=== PATIENT | female | born 1960 | race Caucasian/White ===

== ENCOUNTER 2017-01-19 09:23 | Outpatient (CLI) | payer OTHER ==
--- NOTE | 2017-01-19 11:58 | BD ---
BONE DENSITOMETRY USING DEXA: HISTORY: Postmenopausal screening for osteoporosis. FINDINGS: Lumbar Spine: BMD (g/cm2) L1 0.250 T-Score: -3.3 Z-Score: -2.6 L2 0.297 T-Score: -5.6 Z-Score: -4.7 L3 0.377 T-Score: -5.3 Z-Score: -4.3 L4 0.447 T-Score: -3.6 Z-Score: -2.6 L1-L4 0.551 T-Score: -3.2 Z-Score: -2.5 Impression: Osteoporosis. POS: [facility]
== END 2017-01-19 09:24 | disposition home or self-care (01) ==
LOC: MAMMO 09:23
PROVIDERS: ATTEND Internal Medicine Hematology & Oncology
DX: N95.9 Unspecified menopausal and perimenopausal disorder (principal); C50.912 Malignant neoplasm of unspecified site of left female breast; M81.0 Age-related osteoporosis without current pathological fracture
CPT/HCPCS: 77080

== ENCOUNTER 2017-02-03 09:01 | Day surgery (SDC) | payer OTHER ==
[2017-02-03] MEDS ORDERED: Zoledronic Acid 4 MG, Admixture Fee 1 EACH in Sodium Chloride 0.9% 100 ML IVPB SCH (09:30)
[2017-02-03 09:49] VITALS: BP 117/60; TEMP 98.8
== END 2017-02-03 14:01 | disposition home or self-care (01) ==
LOC: ONC/OP 09:01
PROVIDERS: ATTEND Internal Medicine Hematology & Oncology
DX: Z51.11 Encounter for antineoplastic chemotherapy (principal); C50.912 Malignant neoplasm of unspecified site of left female breast; I10 Essential (primary) hypertension; Z90.10 Acquired absence of unspecified breast and nipple; Z98.890 Other specified postprocedural states; Z86.73 Personal history of transient ischemic attack (TIA), and cerebral infarction without residual deficits
CPT/HCPCS: 96365; J3489; J7050

== ENCOUNTER 2017-05-05 09:35 | Day surgery (SDC) | payer OTHER ==
[2017-05-05] MEDS ORDERED: Sodium Chloride 0.9% 20 ML ONE (09:44)
[2017-05-05] MEDS ORDERED: Zoledronic Acid 4 MG in Sodium Chloride 0.9% 100 ML IVPB SCH (09:45)
[2017-05-05 10:39] VITALS: BP 132/67; TEMP 98
== END 2017-05-05 10:58 | disposition home or self-care (01) ==
LOC: ONC/OP 09:35
PROVIDERS: ATTEND Internal Medicine Hematology & Oncology
DX: Z51.11 Encounter for antineoplastic chemotherapy (principal); C50.912 Malignant neoplasm of unspecified site of left female breast; I10 Essential (primary) hypertension; F10.20 Alcohol dependence, uncomplicated; F17.210 Nicotine dependence, cigarettes, uncomplicated; Z79.899 Other long term (current) drug therapy; Z98.1 Arthrodesis status; Z95.820 Peripheral vascular angioplasty status with implants and grafts; Z90.12 Acquired absence of left breast and nipple; Z98.890 Other specified postprocedural states
CPT/HCPCS: 82565; 96365; A4216; J3489; J7050

== ENCOUNTER 2017-07-20 13:26 | Outpatient (CLI) | payer OTHER ==
[~2017-07-20 13:26] MED LIST: Sodium Chloride 0.9% 15 ML NEB ONE
--- NOTE | 2017-07-20 19:51 | HP ---
DATE OF SERVICE: 07/20/2017 HISTORY OF PRESENT ILLNESS: Ms. Stephanie Gordon is a very pleasant 57-year-old accompanied by her mothe r who presents to the [facility] for evaluation of an ulceration of the left lateral ankle, which t he patient states has been present for approximately 1 month. The patient denies any history of inju ry or trauma to her left lateral ankle. The patient states that initially she treated the ulceration with the application of Neosporin followed by a Band-Aid. She states that more recently; however, s he has been leaving the ulceration open to air and keeping the ulceration clean and dry. The patient was referred to the Wound Center by Dr. Cardona. The patient states she is to undergo percutaneous revascularization of the left lower extremity and the right lower extremity by Dr. Rod Watts in t he near future. The patient states that she is to undergo percutaneous revascularization of the left lower extremity before she undergoes percutaneous revascularization on the right. PAST MEDICAL HISTORY: 1. Breast carcinoma with liver metastases, status post chemotherapy. 2. Hypertension. 3. CVA. PAST SURGICAL HISTORY: 1. Wide local excision of left breast carcinoma with axillary node dissection. 2. MediPort placement/left simple mastectomy. 3. Tonsillectomy. 4. Right carpal tunnel release. 5. Left carpal tunnel release. 6. Surgery for congenital hip dislocation. 7. Right carotid endarterectomy with patch angioplasty, 03/18. 8. Hip replacement. 9. Neck surgery. 10. Back surgery. MEDICATIONS: 1. Sertraline. 2. Clonidine. 3. Cyclobenzaprine. 4. Folic acid. 5. Amlodipine. 6. Metoprolol. 7. Lisinopril. 8. Anastrozole. 9. Ativan. 10. Multivitamins. ALLERGIES: No known diagnosed allergies. SOCIAL HISTORY: Significant for tobacco use beginning at age 17 or 18. The patient states that she stopped smoking 2 weeks ago. The patient states that over this period of time she has smoked up to 1 pack of cigarettes per day. The patient also admits to the consumption of alcohol also beginning at age 17 or 18. The patient states that she also stopped consuming alcohol 2 weeks ago. The patient states that over this period of time she has consumed up to one 6-pack per day. FAMILY HISTORY: Significant for coronary artery disease. The patient states that her father and mot her were both diagnosed with coronary artery disease. Family history is negative for diabetes kwesi underwood. PHYSICAL EXAMINATION: VITAL SIGNS: Temperature 98.1, pulse 84, respirations 18, blood pressure 98/58. GENERAL: A 57-year-old female sitting on chair in examination room, in no acute distress. HEENT: Normocephalic, atraumatic. NECK: No nuchal rigidity. CHEST: Clear to auscultation. CARDIOVASCULAR: Regular rate and rhythm. ABDOMEN: Soft. EXTREMITIES: An ulceration of the left lateral ankle is present which measures approximately 0.5 x 0 .3 cm. Eschar covers the entire wound bed. No serous or purulent drainage is associated with the wo und. No cellulitis of the left lateral ankle is appreciated. No maceration of the skin of the periw ound is noted. A dorsalis pedis pulse or a posterior tibial pulse is not palpable on the left. No s ignificant edema of the left foot or lower leg is present on exam today. ASSESSMENT AND PLAN: 1. Ulceration of left lateral ankle as described above. I have recommended to Ms. Gordon that she continue to keep the ulceration clean and dry. I have explained to the patient that once she undergo es percutaneous revascularization of the left lower extremity, the ulceration may heal without any fu rther intervention. Ms. Gordon and her mother understand and are in agreement with the preceding tr eatment plan. They will return to the Wound Center as needed after the patient undergoes percutaneou s revascularization of the left lower extremity. 2. Breast carcinoma with liver metastases, status post chemotherapy. 3. Hypertension. 4. Cerebrovascular accident.
== END 2017-07-20 13:27 | disposition home or self-care (01) ==
LOC: WCC 13:26
PROVIDERS: ATTEND Family Medicine
DX: L97.329 Non-pressure chronic ulcer of left ankle with unspecified severity (principal); Z85.3 Personal history of malignant neoplasm of breast; Z85.05 Personal history of malignant neoplasm of liver; Z92.21 Personal history of antineoplastic chemotherapy; I10 Essential (primary) hypertension; I63.9 Cerebral infarction, unspecified
CPT/HCPCS: 97602; 99202; A4218; G0463

== ENCOUNTER 2017-07-21 08:19 | Outpatient (CLI) | payer OTHER ==
[2017-07-21 09:02] LABS: Hemoglobin 8.5 g/dL (12.0-16.0); Mean Corpuscular HGB CONC 32.3 g/dL (32.0-36.0); Mean Corpuscular Hemoglobin 26.5 pg (27.0-31.0); Mean Corpuscular Volume 81.9 fl (81.0-99.0); Mean Platelet Volume 7.6 fL (7.4-10.4); Platelet Count 271 thou/uL (130-400); RBC Distribution Width 15.4 % (11.5-14.5); Red Blood Cell (RBC) Count 3.22 mill/uL (4.20-5.40); White Blood Cell (WBC) Count 4.6 thou/uL (4.8-10.8)
[2017-07-21 09:23] LABS: Anion Gap 15 mmol/L (10-20); BUN (Urea Nitrogen) 16 mg/dL (9.8-20.1); Calc. Creatinine Clearance 0 mL/min (70-130); Calcium 9.3 mg/dL (7.8-10.44); Carbon Dioxide 19 mmol/L (22-29); Chloride 93 mmol/L (98-107); Estimated GFR-MDRD 63; Glucose 87 mg/dL (70-105); Potassium 4.1 mmol/L (3.5-5.1); Sodium 123 mmol/L (136-145)
== END 2017-07-21 08:20 | disposition home or self-care (01) ==
LOC: LABBT 08:19
PROVIDERS: ATTEND Thoracic Surgery (Cardiothoracic Vascular Surgery)
DX: Z01.812 Encounter for preprocedural laboratory examination (principal); I73.9 Peripheral vascular disease, unspecified
CPT/HCPCS: 80048; 85027

== ENCOUNTER 2017-07-26 05:48 | Inpatient (IN) | payer OTHER ==
[2017-07-26] MEDS ORDERED: diphenhydrAMINE 50 MG/ML VIAL IVP SCH (07:00)
[2017-07-26] MEDS ORDERED: Cyclobenzaprine 10 MG TAB PO PRN (07:02)
[2017-07-26] MEDS ORDERED: Acetaminophen 325 MG TAB PO PRN (07:03)
[2017-07-26] MEDS: Lorazepam 1 MG TAB PO SCH ×2 (08:33→20:13)
[2017-07-26] MEDS: Anastrozole 1 MG TAB PO SCH ×2 (08:33)
[2017-07-26] MEDS: Folic Acid 1 MG TAB PO SCH (08:33)
[2017-07-26] MEDS: BEER 1 CAN PO SCH ×6 (11:06→17:26)
[2017-07-26 15:03] LABS: #Lymphocytes 1.9 thou/uL (1.20-3.40); #Monocytes 0.6 thou/uL (0.11-0.59); #Neutrophils 3.1 thou/uL (1.40-6.50); %Basophils 0.3 % (0.0-1.0); %Eosinophils 0.8 % (0.0-10.0); %Lymphocytes 33.5 % (21.0-51.0); %Monocytes 10.3 % (0.0-10.0); %Neutrophils 55.2 % (42.0-75.0); Hemoglobin 9.9 g/dL (12.0-16.0); Mean Corpuscular HGB CONC 32.8 g/dL (32.0-36.0); Mean Corpuscular Hemoglobin 26.5 pg (27.0-31.0); Mean Corpuscular Volume 80.9 fl (81.0-99.0); Mean Platelet Volume 7.3 fL (7.4-10.4); Platelet Count 252 thou/uL (130-400); RBC Distribution Width 14.8 % (11.5-14.5); Red Blood Cell (RBC) Count 3.74 mill/uL (4.20-5.40); White Blood Cell (WBC) Count 5.6 thou/uL (4.8-10.8)
--- NOTE | 2017-07-26 15:26 | CON ---
DATE OF CONSULTATION: 07/26/2017 REASON FOR CONSULTATION: Anemia. HISTORY OF PRESENT ILLNESS: Patient is a 57-year-old female with past medical history of m etastatic infiltrating ductal carcinoma of the left breast. She had a modified radical mastectomy in 2001. She had liver metastasis at time of diagnosis over the course of the last 16 years. She has had stable disease. She takes Arimidex daily. She has had some lower extremity pain and a poorly he aling ulcer of her left ankle. She had a CT angio which showed some claudication. She was to have a CT angio of her left lower extremity this morning. A routine CBC showed a hemoglobin of 8.5. The p rocedure was stopped and she was admitted for further workup. Patient has no history of anemia. She denies any melena, hematochezia, hematuria, or hemoptysis. Her last colonoscopy was in 2002. She d oes admit to drinking alcohol daily. She states approximately a 6 pack or so. She has a history of a [id number] of smoking. She states over the past few months, she has had some fatigue, but otherw ise has been in her usual state of health. Denies any chest pain, shortness of breath. No abdominal pain or discomfort. No recent weight loss. She does admit to about a 20-pound weight gain over the last few months. PAST MEDICAL HISTORY: 1. Metastatic infiltrating ductal carcinoma of the left breast, status post mastectomy. 2. Alcoholism. 3. Degenerative joint disease. 4. Hypertension. 5. Tobacco abuse. PAST SURGICAL HISTORY: 1. Hip surgery in 1963. 2. Hip surgery in 2009. 3. Right carotid stenting in 2007. 4. Cervical disk repair in 2010. 5. Lumbar fusion 2015. ALLERGIES: No known drug allergies. HOME MEDICATIONS: 1. Amlodipine 5 mg daily. 2. Arimidex daily. 3. Catapres 0.2 mg b.i.d. 4. Folic acid daily. 5. Lisinopril 10 mg daily. 6. Lorazepam 1 mg p.o. b.i.d. 7. Lopressor 50 mg b.i.d. 8. Zoloft 50 mg daily. FAMILY HISTORY: No history of breast, ovarian or colon cancer. SOCIAL HISTORY: Single, lives alone near her mother. Every day smoker, drinks beer and liquor daily , unemployed. REVIEW OF SYSTEMS: Twelve point review of systems is negative. PHYSICAL EXAMINATION: VITAL SIGNS: Temperature is 98.4, pulse is 85, respiratory rate 16, BP is 107/68. She is 97% on devin m air. GENERAL: This is a disheveled male in female in no acute distress. HEENT: Normocephalic, atraumatic. Pupils equal and reactive to light. NECK: Supple. CARDIOVASCULAR: Regular rate and rhythm. LUNGS: Clear to auscultation. ABDOMEN: Soft, nontender, bowel sounds are positive. There is no organomegaly. BREASTS: She has a surgically absent left breast. Her right breast with no masses, nodules or skin changes. EXTREMITIES: No clubbing, cyanosis or edema. SKIN: No rash. HEMATOLOGIC: No petechia or purpura. NEUROLOGIC: Nonfocal. She does have chronic slurred speech. She is alert and oriented and appropri ate. PERTINENT LABORATORY DATA AND X-RAYS: Current WBCs are 4.6, hemoglobin 8.5, hematocrit 26.4, platele t count is 271,000. Sodium is 123, chloride 93, potassium 4.1, CO2 is 19, BUN is 16, creatinine 0.93 , calcium is 9.3. ASSESSMENT: 1. Stage IV infiltrating ductal carcinoma of the left breast, status post mastectomy. Stable on Geoff midex. 2. New normocytic anemia. DISCUSSION: The patient's last colonoscopy was many years ago. She denies any bleeding. We will ch jaskaran her stool for occult blood. We will check iron studies and B12. She has no menses. Her anemia could be from nutritional deficiency. However, given her history, also could be from recurrent cance r. I will get a CT scan to look at her liver and labs will be drawn today and further recommendation s based on results of these tests. Thank you for the consult.
[2017-07-26 15:29] LABS: ALT (SGPT) 9 U/L (8-55); AST (SGOT) 13 U/L (5-34); Albumin 3.9 g/dL (3.5-5.0); Alkaline Phosphatase 59 U/L (40-150); Anion Gap 14 mmol/L (10-20); BUN (Urea Nitrogen) 10 mg/dL (9.8-20.1); Bilirubin, Total 0.5 mg/dL (0.2-1.2); Calc. Creatinine Clearance 126 mL/min (70-130); Calcium 9.5 mg/dL (7.8-10.44); Carbon Dioxide 18 mmol/L (22-29); Chloride 97 mmol/L (98-107); Estimated GFR-MDRD Greater than 90; Globulin 2.9 g/dL (2.4-3.5); Glucose 78 mg/dL (70-105); Iron 55 ug/dL (50-170); Iron Binding Capacity, Total 431 mcg/dL (265-497); Potassium 4.1 mmol/L (3.5-5.1); Protein, Total 6.8 g/dL (6.0-8.3); Sodium 125 mmol/L (136-145)
[2017-07-26] MEDS ORDERED: ISOVUE-370 76%-LOCM 1 ML ONE (16:11)
--- NOTE | 2017-07-26 19:25 | CT ---
CT OF THE CHEST WITH IV CONTRAST CT OF THE ABDOMEN AND PELVIS WITH IV CONTRAST 07/26/17 INDICATION: History of breast cancer with arterial blockage in both legs, low blood pressure and anemia with mets to the liver. The patient had a prior history of a left mastectomy. COMPARISON: CT of the thorax dated 11/10/[address] of the abdomen dated 05/06/15. FINDINGS: There are areas of subsegmental volume loss within the right upper lobe and right lower lobe. No new suspicious pulmonary nodules identified. There is severe calcification involving the coronary arteries. There are moderate calcifications inv olving the thoracic aorta. There are stable calcified lesions within the liver likely reflecting treated metastatic lesions. Sma ll cystic lesions involving the right hepatic lobe on image 50 of series 2 and image 46 of series 2 a re stable suspicious for small cysts. There are small gallstones within the gallbladder which are stable. Adrenal glands, pancreas, spleen, and kidneys appear within normal limits. There is prominent vascular calcifications noted involving the abdominal aorta. The phase of the cont rast bolus limits evaluation of luminal caliber of the aorta and the iliac vasculature. The small and large bowel appear within normal limits. There is a mild amount of retained stool withi n the colon. There is scattered degenerative and osteoarthritic change. There is postoperative change involving th e lower lumbar spine. There is diffuse osteopenia. There is a remote appearing superior end plate com pression abnormality of L1. There are healing left anterolateral third through fifth rib fractures. N o new suspicious osteolytic or osteoblastic lesion is evident. IMPRESSION: 1. No evidence of recurrent metastatic disease by CT. 2. Calcified lesions within the liver consistent with treated metastatic disease within the live r are stable. Small cystic lesions within the right hepatic lobe are also stable. 3. Nonspecific subsegmental atelectasis within the right lung. 4. Prominent vascular calcifications of the visualized vasculature. 5. Cholelithiasis. 6. Remote appearing L1 superior end plate compression fracture. 7. Healing left anterolateral third through fifth rib fractures. POS: [facility]
[2017-07-27 04:22] LABS: #Basophils 0.1 thou/uL (0.0-0.2); #Eosinphils 0.1 thou/uL (0.0-0.7); #Lymphocytes 1.9 thou/uL (1.20-3.40); #Monocytes 0.6 thou/uL (0.11-0.59); #Neutrophils 3.2 thou/uL (1.40-6.50); %Basophils 1.5 % (0.0-1.0); %Eosinophils 1.2 % (0.0-10.0); %Lymphocytes 32.1 % (21.0-51.0); %Monocytes 10.7 % (0.0-10.0); %Neutrophils 54.6 % (42.0-75.0); Hemoglobin 10.4 g/dL (12.0-16.0); Mean Corpuscular HGB CONC 34.1 g/dL (32.0-36.0); Mean Corpuscular Hemoglobin 27.1 pg (27.0-31.0); Mean Corpuscular Volume 79.4 fl (81.0-99.0); Mean Platelet Volume 7.3 fL (7.4-10.4); Platelet Count 257 thou/uL (130-400); RBC Distribution Width 14.8 % (11.5-14.5); Red Blood Cell (RBC) Count 3.85 mill/uL (4.20-5.40); White Blood Cell (WBC) Count 5.9 thou/uL (4.8-10.8)
[2017-07-27] MEDS: Folic Acid 1 MG TAB PO SCH (08:28)
[2017-07-27] MEDS: Lorazepam 1 MG TAB PO SCH ×3 (08:28→20:02)
[2017-07-27] MEDS: Cyanocobalamin (Vitamin B-12) 1,000 MCG TAB PO SCH (08:28)
[2017-07-27] MEDS: BEER 1 CAN PO SCH ×6 (08:28→18:58)
[2017-07-27] MEDS: Anastrozole 1 MG TAB PO SCH ×2 (08:28)
[2017-07-27] MEDS ORDERED: Lidocaine 1% (PF) 30 ML VIAL ONE (10:20)
[2017-07-27 10:29] VITALS: BMI 23.9
[2017-07-27] MEDS ORDERED: Iopamidol 370 76% 50 ML VIAL FS ONE (10:43)
[2017-07-27] MEDS ORDERED: Midazolam HCl 2 mg/2 ml Vial ONE (10:50)
[2017-07-27] MEDS ORDERED: Fentanyl 100 MCG/2 ML VIAL ONE (10:51)
[2017-07-27] MEDS ORDERED: Heparin 10,000 UNITS/1 ML VIAL ONE (11:19)
[2017-07-27] MEDS ORDERED: hydrALAZINE 20 MG/ML VIAL ONE (11:33)
[2017-07-27] MEDS ORDERED: Promethazine HCl 25 MG/ML VIAL ONE (11:50)
--- NOTE | 2017-07-27 11:55 | OP ---
DATE OF PROCEDURE: 07/27/2017 PREOPERATIVE DIAGNOSIS: Peripheral vascular disease with nonhealing ulcer on left foot. POSTOPERATIVE DIAGNOSIS: Peripheral vascular disease with nonhealing ulcer on left foot. PROCEDURES: 1. Abdominal aortogram. 2. External iliac artery angiogram with left leg runoff. 3. Left SFA angiogram. 4. Left peroneal artery angiogram. 5. Left tibioperoneal trunk/peroneal artery [employer] with 3 x 100 Euless balloon taken to 18 mmHg for 2 minutes. 6. Left distal popliteal artery [employer] with a drug-eluting Lutonix balloon - 4 x 80 left inflated at 10 mmHg for 3 minutes. TOTAL CONTRAST: 28 mL. TOTAL FLUORO TIME: 7.6 minutes. SURGEON: Rod Watts M.D. ANESTHESIA: 2 mg Versed/100 mcg fentanyl for sedation with 1% lidocaine for local. DESCRIPTION OF PROCEDURE: After consent was obtained, the patient was brought to the cath lab tech, place d in supine position on the cath lab tech table. Appropriate anesthesia monitor was placed. IV sedation was begun. Groins were prepped and draped in usual sterile fashion. Using ultrasound guidance, the right groin was anesthetized with 1% lidocaine. Ultrasound guidance was used to access the right com mon femoral artery with a micropuncture needle and wire. Micropuncture sheath was placed followed by exchange for 0.035 5-Fijian sheath. Contra catheter was passed into the abdominal aorta. Abdominal aortogram was performed. The aorta was calcified, but there was no flow limiting encroachment from atherosclerotic calcification. Common iliac, external iliac, and internal iliac arteries were all wi page patent and small in caliber. Contra catheter was guided over the aortic bifurcation with its ti p placed into the left common femoral artery. Digital angiography was used to adelaida contrast from gr oin to foot. The superficial femoral and popliteal artery proximally was small in caliber, but free from atherosclerotic disease. At the level of the patella, the popliteal artery had multiple areas o f stenosis and was occluded at the knee joint. The popliteal artery just above the tibioperoneal leora nk reconstituted via collaterals. Anterior tibial, peroneal and posterior tibial arteries were paten t to the foot. The distal tibioperoneal trunk and proximal peroneal artery were also nearly occluded from calcification. Patient was given 5000 units of heparin. The 5-Fijian sheath was exchanged for a 5-Fijian destination sheath placed with its tip into the superficial femoral artery. Angled glide catheter was used to guide an angled Glidewire down into the peroneal artery. Hand injected arterio gram confirmed intraluminal location in the peroneal artery. A 3 x 100 Euless balloon was placed into the peroneal artery and inflated to 18 mmHg. The balloon w aisted and eventually opened in distal tibioperoneal trunk. This was held for 2 minutes. Balloon wa s then backed up into the distal popliteal artery and inflated for a short time. This balloon was re moved and a 4 x 80 Lutonix balloon was used to angioplasty the distal popliteal artery. This was inf lated to 10 mmHg and left inflated for 3 minutes. Followup angiogram through the sheath with its tip in the superficial femoral artery showed an excellent result with good flow into all 3 tibial vessel s to the foot. Catheters and guidewires were removed and manual pressure held for hemostasis. [facility] and was transferred to the recovery area in stable condition.
[2017-07-27] MEDS ORDERED: Fentanyl 100 MCG/2 ML VIAL SLOW IVP PRN (12:07)
[2017-07-27] MEDS ORDERED: HYDROcodone/Acetaminophen 5/325 mg Tablet PO PRN ×2 (12:07)
[2017-07-27] MEDS ORDERED: Ibuprofen 200 MG TAB PO PRN (12:30)
[2017-07-27] MEDS ORDERED: HYDROcodone/Acetaminophen 10/325 mg Tablet ONE (15:27)
[2017-07-27] MEDS ORDERED: HYDROcodone/Acetaminophen 5/325 mg Tablet ONE (15:32)
[2017-07-27] MEDS: cloNIDine 0.2 MG TAB PO SCH (20:01)
[2017-07-27] MEDS: Cyclobenzaprine 10 MG TAB PO SCH (20:01)
[2017-07-27] MEDS: Metoprolol Tartrate 50 MG TAB PO SCH (20:01)
--- NOTE | 2017-07-28 06:34 | DIS ---
DATE OF ADMISSION: 07/26/2017 DATE OF DISCHARGE: 07/28/2017 POSTOPERATIVE DIAGNOSES: Peripheral vascular disease with left ankle ulceration. PROCEDURES: Angiograms with left leg intervention. DESCRIPTION OF HOSPITAL STAY: Ms. Gordon was brought into the hospital for an elective outpatient a ngiogram and potential intervention. Her initial laboratory results showed a hemoglobin of 8 and her systolic pressure on coming to the hospital was in the 80s. This is a new finding for her. She has had hemoglobins in the upper 11/lower 12s chronically. She was brought in, stool was guaiaced and w as negative. She has had a workup with Hematology -- Coretta Marroquin, that has revealed no evidence of metastatic disease from her breast cancer. It is felt that her anemia is probably due to her chronic alcohol intake. She was transfused 1 unit of blood. Hemoglobin gloria to 10.4. Her blood pressure s tabilized. She was brought back for intervention on her left leg, has done well and has a palpable d orsalis pedis pulse at this time. At the time of discharge, she is ambulatory, tolerating regular di et. She will return to her usual medical regimen with the exception of the addition of aspirin 81 mg every day, and Plavix 75 mg every day. FOLLOWUP: Follow up will be with me in a week for intervention on her right leg.
[2017-07-28] MEDS: Cyanocobalamin (Vitamin B-12) 1,000 MCG TAB PO SCH (07:42)
[2017-07-28] MEDS: Cyclobenzaprine 10 MG TAB PO SCH (07:42)
[2017-07-28] MEDS: Lorazepam 1 MG TAB PO SCH ×2 (07:43→08:51)
[2017-07-28] MEDS: Metoprolol Tartrate 50 MG TAB PO SCH (07:43)
[2017-07-28] MEDS: Folic Acid 1 MG TAB PO SCH (07:43)
[2017-07-28] MEDS: Anastrozole 1 MG TAB PO SCH ×2 (07:44)
[2017-07-28] MEDS: BEER 1 CAN PO SCH ×2 (08:53)
[2017-07-28] MEDS: cloNIDine 0.2 MG TAB PO SCH (08:55)
[2017-07-28] MEDS ORDERED: [UNRECOGNIZED DRUG - OTHER] PO SCH ×2 (09:00)
[2017-07-28] MEDS ORDERED: Aspirin 81 mg Enteric Coated Tablet PO SCH (09:00)
[2017-07-28] MEDS ORDERED: Lisinopril 10 MG TAB PO SCH (09:00)
[2017-07-28] MEDS ORDERED: Amlodipine 5 MG TAB PO SCH (09:00)
[2017-07-28] MEDS ORDERED: Clopidogrel Bisulfate 75 MG TAB PO SCH (09:00)
[2017-07-28] MEDS ORDERED: Multivitamin W/ Minerals 1 TAB PO SCH (09:00)
[2017-07-28] MEDS ORDERED: Folic Acid 1 MG TAB PO SCH (09:00)
[2017-07-28] MEDS ORDERED: Anastrozole 1 MG TAB PO SCH ×2 (09:00)
[2017-07-28 11:43] VITALS: BP 137/77; TEMP 98.1
== END 2017-07-28 12:10 | disposition home or self-care (01) | DRG 982 ==
LOC: CCL 05:48 → T4-B 07:47
PROVIDERS: ADMIT Thoracic Surgery (Cardiothoracic Vascular Surgery); ATTEND Thoracic Surgery (Cardiothoracic Vascular Surgery)
PROC: 30233N1 Transfusion of Nonautologous Red Blood Cells into Peripheral Vein, Percutaneous Approach (ICD-10-PCS; principal; 2017-07-26)
PROC: 047N3Z1 Dilation of Left Popliteal Artery using Drug-Coated Balloon, Percutaneous Approach (ICD-10-PCS; 2017-07-27)
PROC: [UNRECOGNIZED PROCEDURE] (2017-07-27)
PROC: B41D1ZZ Fluoroscopy of Aorta and Bilateral Lower Extremity Arteries using Low Osmolar Contrast (ICD-10-PCS; 2017-07-27)
DX: D50.8 Other iron deficiency anemias (principal); L97.329 Non-pressure chronic ulcer of left ankle with unspecified severity; I95.9 Hypotension, unspecified; D51.8 Other vitamin B12 deficiency anemias; I70.243 Atherosclerosis of native arteries of left leg with ulceration of ankle; F10.20 Alcohol dependence, uncomplicated; F17.210 Nicotine dependence, cigarettes, uncomplicated; Z79.811 Long term (current) use of aromatase inhibitors; Z53.09 Procedure and treatment not carried out because of other contraindication; Z85.3 Personal history of malignant neoplasm of breast; I10 Essential (primary) hypertension; I70.211 Atherosclerosis of native arteries of extremities with intermittent claudication, right leg
CPT/HCPCS: 36415; 36430; 37224; 37228; 71260; 74177; 76942; 80053; 82274; 82607; 82728; 82746; 83540; 83550; 85025; 85347; 86850; 86900; 86901; 99152; 99153; C1725; C1760; C1769; C1887; J0360; J1200; J1644; J1750; J2001; J2250; J2550; J3010; J7050; P9016

== ENCOUNTER 2017-08-04 11:05 | Day surgery (SDC) | payer OTHER ==
[2017-08-04] MEDS ORDERED: Zoledronic Acid 4 MG in Sodium Chloride 0.9% 100 ML IVPB SCH (11:30)
== END 2017-08-04 12:27 | disposition home or self-care (01) ==
LOC: ONC/OP 11:05
PROVIDERS: ATTEND Internal Medicine Hematology & Oncology
DX: Z51.11 Encounter for antineoplastic chemotherapy (principal); C50.912 Malignant neoplasm of unspecified site of left female breast; C78.7 Secondary malignant neoplasm of liver and intrahepatic bile duct; M19.90 Unspecified osteoarthritis, unspecified site; I10 Essential (primary) hypertension; F17.200 Nicotine dependence, unspecified, uncomplicated; R13.10 Dysphagia, unspecified; Z79.82 Long term (current) use of aspirin; Z79.02 Long term (current) use of antithrombotics/antiplatelets; Z79.899 Other long term (current) drug therapy; Z90.12 Acquired absence of left breast and nipple; Z98.890 Other specified postprocedural states
CPT/HCPCS: 96365; J3489; J7050

== ENCOUNTER 2017-08-08 14:53 | Outpatient (CLI) | payer OTHER ==
[2017-08-08 16:17] LABS: Hemoglobin 9.9 g/dL (12.0-16.0); Mean Corpuscular HGB CONC 33.1 g/dL (32.0-36.0); Mean Corpuscular Hemoglobin 28.5 pg (27.0-31.0); Mean Platelet Volume 7.6 fL (7.4-10.4); Platelet Count 269 thou/uL (130-400); RBC Distribution Width 21.4 % (11.5-14.5); Red Blood Cell (RBC) Count 3.47 mill/uL (4.20-5.40); White Blood Cell (WBC) Count 7.5 thou/uL (4.8-10.8)
[2017-08-08 16:43] LABS: Anion Gap 12 mmol/L (10-20); BUN (Urea Nitrogen) 10 mg/dL (9.8-20.1); Calc. Creatinine Clearance 0 mL/min (70-130); Calcium 8.6 mg/dL (7.8-10.44); Carbon Dioxide 20 mmol/L (22-29); Chloride 100 mmol/L (98-107); Estimated GFR-MDRD 69; Glucose 98 mg/dL (70-105); Potassium 4.1 mmol/L (3.5-5.1); Sodium 128 mmol/L (136-145)
--- NOTE | 2017-08-09 16:23 | EKG ---
Test Reason : Blood Pressure : / mmHG Vent. Rate : 073 BPM Atrial Rate : 073 BPM P-R Int : 198 ms QRS Dur : 072 ms QT Int : 380 ms P-R-T Axes : 070 070 052 degrees QTc Int : 418 ms Normal sinus rhythm Normal ECG When compared with ECG of 22-JUL-2012 10:09, No significant change was found Confirmed by DR. Jake QUEZADA ([id number]) on 08/09/2017 4:23:09 PM Referred By: OBED Confirmed By:DR. Jake QUEZADA
== END 2017-08-08 14:54 | disposition home or self-care (01) ==
LOC: LABBT 14:53
PROVIDERS: ATTEND Thoracic Surgery (Cardiothoracic Vascular Surgery)
DX: Z01.818 Encounter for other preprocedural examination (principal); I73.9 Peripheral vascular disease, unspecified
CPT/HCPCS: 80048; 85027; 93005; 93010

== ENCOUNTER 2017-08-10 06:05 | Day surgery (SDC) | payer OTHER ==
[2017-08-10] MEDS ORDERED: Lidocaine 1% (PF) 30 ML VIAL ONE (06:29)
[2017-08-10] MEDS ORDERED: Fentanyl 100 MCG/2 ML VIAL ONE (07:00)
[2017-08-10] MEDS ORDERED: Midazolam HCl 2 mg/2 ml Vial ONE (07:00)
[2017-08-10] MEDS ORDERED: Heparin 10,000 UNITS/1 ML VIAL ONE (07:32)
--- NOTE | 2017-08-10 09:21 | OP ---
DATE OF OPERATION: 08/10/2017 PREOPERATIVE DIAGNOSES: Peripheral vascular disease with lifestyle limiting claudication on the rig t. POSTOPERATIVE DIAGNOSES: Peripheral vascular disease with lifestyle limiting claudication on the [facility] ht. PROCEDURES: 1. External iliac artery angiogram. 2. Superficial femoral artery angiogram. 3. Popliteal artery angiogram. 4. Aborted attempt at crossing the chronic total occlusion of the distal popliteal artery. SURGEON: Rod Watts M.D. ANESTHESIA: 1% lidocaine/half mg Versed/25 mcg fentanyl. FLUORO TIME: 8.5 minutes. CONTRAST: 15 mL. PROCEDURE IN DETAIL: After consent was obtained, the patient was brought to the Front End Web Designer, placed in supine position on medical lab assistant table. Groins were prepped and draped in usual sterile fashion. Using u ltrasound guidance, the left groin was anesthetized with 1% lidocaine. Using ultrasound guidance, pe rcutaneous access common femoral artery was obtained using micropuncture wire and sheath. This was e xchanged over 0.035 guidewire for a 5-Panamanian sheath. Contra catheter was passed over the aortic bifu rcation down into the external iliac artery. Digital angiography was used to adelaida contrast from the groin down to below the knee. The superficial femoral and profunda femoris arteries were widely pat ent. There was some nonocclusive disease of the superficial femoral artery until the distal poplitea l just above the knee joint. At this level the popliteal artery was flush occluded. There was some visualization of the peroneal artery, but no straight line flow into the foot. The patient was given 5000 units of heparin. A Magic Torque guidewire was placed into the superficial femoral artery. A 5-Panamanian sheath was removed and a 5-Panamanian destination sheath placed. A glide catheter was then pass ed down into the popliteal artery at the level just above the occlusion. Hand injected arteriogram w as performed and the popliteal artery occlusion was confirmed. She had no good straight line flow in to the foot, but a heavy collateral network. Attempts at crossing the chronic occlusion with a [place] wire and glide catheter were unsuccessful. The wires and sheaths were removed and manual pressure held for hemostasis. I would not consider her a bypassable candidate due to the small caliber of her vessels and also the tibial arteries do not pass down into the foot.
[2017-08-10] MEDS ORDERED: Ondansetron ODT 4 MG TAB PO PRN (09:30)
[2017-08-10] MEDS ORDERED: Fentanyl 100 MCG/2 ML VIAL SLOW IVP PRN (09:30)
[2017-08-10] MEDS ORDERED: Iopamidol 370 76% 50 ML VIAL FS ONE (11:18)
[2017-08-10] MEDS ORDERED: Metoprolol Tartrate 50 MG TAB PO SCH (21:00)
== END 2017-08-10 13:10 | disposition home or self-care (01) ==
LOC: CCL 06:05
PROVIDERS: ATTEND Thoracic Surgery (Cardiothoracic Vascular Surgery)
PROC: B40FYZZ Plain Radiography of Right Lower Extremity Arteries using Other Contrast (ICD-10-PCS; principal; 2017-08-10)
DX: I73.9 Peripheral vascular disease, unspecified (principal); I10 Essential (primary) hypertension; I65.29 Occlusion and stenosis of unspecified carotid artery; Z79.82 Long term (current) use of aspirin; Z79.899 Other long term (current) drug therapy; Z98.890 Other specified postprocedural states; Z85.3 Personal history of malignant neoplasm of breast; Z92.3 Personal history of irradiation; Z92.21 Personal history of antineoplastic chemotherapy
CPT/HCPCS: 36247; 75710; 75774; 76942; 85347; 99152; C1725; C1769; J1644; J2001; J2250; J3010

== ENCOUNTER 2017-10-03 08:47 | Outpatient (CLI) | payer OTHER ==
--- NOTE | 2017-10-03 09:28 | PRG ---
DATE OF SERVICE: 10/03/2017 HISTORY: Ms. Stephanie Gordon is a very pleasant 57-year-old accompanied by her mother who presents to [facility] for evaluation of an ulceration of the left lateral ankle. Since the patient was las t seen in the Wound Center, Ms. Gordon has undergone percutaneous revascularization of the left lowe r extremity on 07/27/[address] Rod Watts. Percutaneous revascularization of the right lower ex tremity was attempted; however, this attempt was aborted. The patient states she has continued to ke ep the ulceration of her left lateral ankle clean and dry. She does report pain associated with the lesion of her left lateral ankle. PHYSICAL EXAMINATION: VITAL SIGNS: Temperature 98.0, pulse 71, respirations 18, blood pressure 143/75. EXTREMITIES: The ulceration of the left lateral ankle has improved in its [facility] No serous or purulent drainage is associated with the wound. No cellulitis of the left lateral ankle is appreciated. No maceration of the skin of the periwound is noted. A dorsalis pedis pulse is easily palpable on the left. No significant edema of the left foot is present on exam today. ASSESSMENT AND PLAN: 1. Ulceration of left lateral ankle as described above. I have again recommended to Ms. Gordon ruma aida she continued to keep the ulceration clean and dry. The patient now has a palpable dorsalis pedis pulse on the left following percutaneous revascularization of the left lower extremity on 07/27/[address] Rod Watts. I have explained to the patient and her mother that the ulceration will likely continue to heal without any further intervention in view of her successful percutaneous revasculari zation. The patient and her mother understand and are in agreement with the preceding treatment plan . They are to return to the Wound Center as needed. 2. Breast carcinoma with liver metastases, status post chemotherapy. 3. Hypertension. 4. Cerebrovascular accident.
== END 2017-10-03 08:48 | disposition home or self-care (01) ==
LOC: WCC 08:47
PROVIDERS: ATTEND Family Medicine
DX: L97.329 Non-pressure chronic ulcer of left ankle with unspecified severity (principal); C78.7 Secondary malignant neoplasm of liver and intrahepatic bile duct; C50.919 Malignant neoplasm of unspecified site of unspecified female breast; I63.9 Cerebral infarction, unspecified; I10 Essential (primary) hypertension
CPT/HCPCS: 97602

== ENCOUNTER 2017-11-02 11:35 | Day surgery (SDC) | payer OTHER ==
[2017-11-02] MEDS ORDERED: Ondansetron 2MG/ML MDV 8 MG in Sodium Chloride 0.9% 50 ML IVP SCH (12:00)
[2017-11-02] MEDS ORDERED: Acetaminophen 500 MG TAB PO SCH (12:00)
[2017-11-02] MEDS ORDERED: Zoledronic Acid 4 MG in Sodium Chloride 0.9% 100 ML IVPB SCH (12:00)
[2017-11-02] MEDS ORDERED: Sodium Chloride 0.9% 500 ML IVPB SCH (12:00)
[2017-11-02 18:02] VITALS: BP 112/62; TEMP 97.8
== END 2017-11-02 14:34 | disposition home or self-care (01) ==
LOC: ONC/OP 11:35
PROVIDERS: ATTEND Internal Medicine Hematology & Oncology
DX: Z51.11 Encounter for antineoplastic chemotherapy (principal); C50.912 Malignant neoplasm of unspecified site of left female breast; C78.7 Secondary malignant neoplasm of liver and intrahepatic bile duct; D51.3 Other dietary vitamin B12 deficiency anemia; M81.0 Age-related osteoporosis without current pathological fracture; I73.9 Peripheral vascular disease, unspecified; I10 Essential (primary) hypertension; F17.200 Nicotine dependence, unspecified, uncomplicated; Z79.82 Long term (current) use of aspirin; Z79.02 Long term (current) use of antithrombotics/antiplatelets; Z79.899 Other long term (current) drug therapy
CPT/HCPCS: 80053; 82248; 83615; 84100; 84550; 96361; 96365; 96375; J2405; J3489; J7050

== ENCOUNTER 2018-01-02 21:37 | Inpatient (IN) | payer OTHER ==
[~2018-01-02 21:37] MED LIST changes: +ISOVUE-370 76%-LOCM 1 ML ONE; -Sodium Chloride 0.9% 15 ML NEB ONE
[2018-01-02] MEDS ORDERED: Fentanyl 100 MCG/2 ML VIAL ONE (21:49)
[2018-01-02] MEDS ORDERED: Lorazepam 2 MG/ML VIAL ONE (23:17)
[2018-01-02 23:44] LABS: INR-International Normal Ratio 1.1; PTT 28.2 SEC (22.9-36.1); Prothrombin Time 13.9 SEC (12.0-14.7)
--- NOTE | 2018-01-02 23:49 | RAD ---
RIGHT SHOULDER TWO VIEWS: HISTORY: Trauma. Fall. Pain. FINDINGS: Displaced fracture involving the neck of the right humerus. IMPRESSION: Proximal humerus fracture. POS: [facility]
--- NOTE | 2018-01-02 23:50 | RAD ---
RIGHT HUMERUS TWO VIEWS: HISTORY: Fall. Trauma. Pain. COMPARISON: None. FINDINGS: Proximal humeral fracture at the level of the humeral neck. There is associated deformity and sublux ation of the humeral head, with respect to the glenoid. IMPRESSION: Proximal humerus fracture. POS: [facility]
[2018-01-02 23:58] LABS: ALT (SGPT) 10 U/L (8-55); AST (SGOT) 18 U/L (5-34); Albumin 3.3 g/dL (3.5-5.0); Alkaline Phosphatase 61 U/L (40-150); Anion Gap 14 mmol/L (10-20); BUN (Urea Nitrogen) 9 mg/dL (9.8-20.1); Bilirubin, Total 0.6 mg/dL (0.2-1.2); Calc. Creatinine Clearance 0 mL/min (70-130); Carbon Dioxide 16 mmol/L (22-29); Chloride 97 mmol/L (98-107); Estimated GFR-MDRD 63; Globulin 2.4 g/dL (2.4-3.5); Glucose 68 mg/dL (70-105); Potassium 3.3 mmol/L (3.5-5.1); Protein, Total 5.7 g/dL (6.0-8.3); Sodium 124 mmol/L (136-145)
[2018-01-03 00:02] LABS: #Basophils 0.1 thou/uL (0.0-0.2); #Lymphocytes 1.4 thou/uL (1.20-3.40); #Monocytes 0.4 thou/uL (0.11-0.59); #Neutrophils 2.3 thou/uL (1.40-6.50); %Basophils 2.7 % (0.0-1.0); %Eosinophils 0.3 % (0.0-10.0); %Lymphocytes 32.8 % (21.0-51.0); %Monocytes 8.5 % (0.0-10.0); %Neutrophils 55.7 % (42.0-75.0); Hemoglobin 9.5 g/dL (12.0-16.0); MDiff Complete? YES; Macrocytosis SLIGHT = 6-15 cells (100X) (0-5/hpf); Mean Corpuscular HGB CONC 34.2 g/dL (32.0-36.0); Mean Corpuscular Hemoglobin 36.5 pg (27.0-31.0); Mean Platelet Volume 7.9 fL (7.4-10.4); Platelet Count 176 thou/uL (130-400); RBC Distribution Width 13.2 % (11.5-14.5); Red Blood Cell (RBC) Count 2.61 mill/uL (4.20-5.40); White Blood Cell (WBC) Count 4.2 thou/uL (4.8-10.8)
[2018-01-03] MEDS ORDERED: traMADol HCl 50 MG TAB PO PRN ×4 (00:25→21:56)
[2018-01-03] MEDS ORDERED: Dextrose 50% Abboject 50 ML SYRINGE SLOW IVP PRN (00:31)
[2018-01-03] MEDS ORDERED: Dextrose 5% in Water 1,000 ML IV PRN (00:31)
[2018-01-03] MEDS ORDERED: hydrALAZINE 20 MG/ML VIAL SLOW IVP PRN (00:31)
[2018-01-03] MEDS ORDERED: Ondansetron HCl/PF 4 MG/2 ML Vial IVP PRN ×3 (00:31→19:45)
[2018-01-03] MEDS ORDERED: Morphine 4 MG/ML VIAL IV PRN (00:31)
[2018-01-03] MEDS ORDERED: Ondansetron ODT 4 MG TAB PO PRN (00:31)
--- NOTE | 2018-01-03 00:34 | CT ---
CT THORAX WITH CONTRAST CT ABDOMEN WITH CONTRAST CT PELVIS WITH CONTRAST: (trauma protocol) 01/02/2018 10:58 p.m. HISTORY: A 57-year-old female status post acute trauma to the chest, abdomen, and pelvis due to a fall. TECHNIQUE: IV administration of iodinated contrast media. No oral contrast media. Single phase scans of thorax, abdomen, and pelvis. Sagittal reconstructions of thoracic and lumbar spine. FINDINGS: Skeletal: There is an acute, traumatic, comminuted fracture at the right proximal humeral metaphysis. The codi ral diaphysis is displaced anteriorly, and there is anterior angulation of the fracture apex. There are several small and moderate sized comminuted fracture fragments. There is subluxation of the righ t glenohumeral joint. There is a metallic right acetabular prosthesis with two screws arising from i t, extending into the right ilium. This articulates with a metallic right femoral head and neck comp onent. No dislocation. The metallic prosthesis causes streak artifact, obscuring portions of the pe lvic cavity, especially on the right side. No acute pelvic fracture is identified. Thoracic and lumbar spine: There is depression of the superior endplate of the L1 vertebral body, which appears to be old. No d efinite acute compression fracture is identified. There are bilateral pedicle screws at L4 and L5. There is also loss of height with broad indentation of the inferior endplate of L4, probably old. La minectomy defect at L4-L5. Grade 1 anterolisthesis at L4-L5. Thorax: No pneumothorax, pleural effusion, or acute pulmonary contusion. No thoracic aortic aneurysm or diss ection. Absent left breast. No mediastinal hematoma. Abdomen: Two moderately large, coarse calcifications within the right lobe of the liver. No evidence of acute traumatic injury to the liver, abdominal aorta, bilateral kidneys, adrenals, pancreas, or spleen. C olonic interposition between the anterior border of the right lobe of the liver and the right anterol ateral abdominal wall and hemidiaphragm. No free fluid or retroperitoneal hematoma. Pelvis: No free fluid identified within the pelvic cavity. IMPRESSION: 1. Acute, traumatic, closed, comminuted, displaced fracture of the right humeral surgical neck. 2. Old compression fracture of the L1 lumbar vertebral body. 3. Status post posterior lumbar interbody fusion and laminectomy at L4-L5. 4. Status post right total hip replacement arthroplasty. 5. Status post left mastectomy. 5. No evidence of acute traumatic injury within the thoracic cavity. abdominal cavity, or pelvic cav ity. RADHA Gee POS: [facility]
[2018-01-03] MEDS: Sodium Chloride 0.9% 1,000 ML IV SCH ×3 (03:29→22:28)
--- NOTE | 2018-01-03 04:07 | HP ---
DATE OF ADMISSION: 01/03/2018 ATTENDING PHYSICIAN: Roderick Mahoney M.D. TRAUMA ACTIVATION: Not applicable. HISTORY OF PRESENT ILLNESS: Stephanie Gordon is a 57-year-old female who presented to [facility] as a transfer from an outside facility. Per patient, she was attempting to get out of bed and "cannot st ay standing on my own two feet" became tangled and the blankets tripped and fell landing on her right side Tuesday. The patient tried home care with Motrin for pain relief; however, pain and bruising worsened, so she presented to the emergency room in [place] and was transferred to our facility afte r being found to have a right shoulder dislocation. Orthopedic Surgery was notified and Trauma Servi alka was asked to admit. Upon my evaluation, the patient has recently received multiple pain medicati ons to include ketamine. Majority of history was obtained from records review as patient is still dr canas from sedation. ALLERGIES: None. HOME MEDICATIONS: Include amlodipine 5 mg, Arimidex 1 mg, Pletal 100 mg, clonidine 0.2 mg, Flexeril 10 mg, iron supplement, folic acid, lisinopril 10 mg, Ativan 1 mg, Lopressor 50 mg, Protonix 40 mg, Z oloft 50 mg. PAST MEDICAL HISTORY: Significant for hypertension, breast cancer status post mastectomy and chemoth erapy, history of cerebrovascular accident, chronic hyponatremia, and peripheral vascular disease. PAST SURGICAL HISTORY: Significant for left mastectomy, hip surgery, neck surgery, bilateral carpal tunnel release, and right carotid endarterectomy. SOCIAL HISTORY: The patient lives at home alone. She is a daily drinker and a current every day smo ker. FAMILY HISTORY: Unobtainable. REVIEW OF SYSTEMS: Unobtainable. PHYSICAL EXAMINATION: VITAL SIGNS: On evaluation, temperature 98.7, respirations 16, O2 sat 99% on room air, blood pressur e 106/63, and pulse 96. CONSTITUTIONAL: Elderly appearing female in no acute distress, resting in bed. PULMONARY: Normal work of breathing, symmetric rise. CARDIOVASCULAR: Regular rate and rhythm. GASTROINTESTINAL: Abdomen is soft, nontender, nondistended. MUSCULOSKELETAL: Moves all extremities x4. NEUROLOGIC: No focal deficit is noted. LABORATORY FINDINGS: WBC 4.2, hemoglobin 9.5, hematocrit 27.8, and platelet count 176. INR is 1.1. Sodium 124, potassium 3.3, chloride 97, carbon dioxide 16, BUN 9, creatinine 0.92, glucose 68. EKG with sinus rhythm and nonspecific T-wave abnormality. RADIOGRAPHIC FINDINGS: X-ray of the humerus was significant for proximal humerus fracture with sublu xation of the humeral head per radiology read. X-ray of the shoulder was significant for the same. CT of the chest, abdomen, and pelvis, official read is pending, but there is no obvious traumatic inj ury noted at this time. ASSESSMENT: 1. Status post mechanical fall. 2. Acute traumatic pain. 3. Right shoulder fracture dislocation. 4. History of hypertension. 5. History of cerebrovascular accident. 6. History of peripheral vascular disease. 7. History of breast cancer status post mastectomy, on chemotherapy. 8. Chronic hyponatremia, at baseline. 9. Daily alcohol use. 10. Tobacco abuse. PLAN: Admit to Trauma Services. Orthopedic surgery will see and evaluate the patient. They plan for opera tive intervention later today. The patient should be n.p.o. Perioperative pain management with p.o. and IV analgesics. Postoperative PT and OT. Plan of care was discussed with the patient at bedside . All questions were answered at the time of this dictation. Trauma attending has been notified of admission.
[2018-01-03 04:25] VITALS: BMI 23.3
[2018-01-03] MEDS: Ketorolac Tromethamine 30 MG/ML VIAL IVP SCH ×3 (05:16→23:34)
[2018-01-03] MEDS: Acetaminophen 1,000 MG in Premix Bag 1 BAG IVPB SCH ×3 (05:16→17:56)
[2018-01-03] MEDS: Oxazepam 10 MG CAP PO SCH ×3 (05:18→23:49)
[2018-01-03 06:03] LABS: CKMB 1.7 ng/mL (0-6.6); Troponin I Less than 0.010 ng/mL (< 0.028)
[2018-01-03] MEDS: traMADol HCl 50 MG TAB PO SCH ×3 (06:59→23:32)
[2018-01-03] MEDS ORDERED: CEFAZOLIN/Water 2 GM/20 ML SYRINGE SLOW IVP SCH ×2 (07:45→22:00)
--- NOTE | 2018-01-03 08:04 | CON ---
DATE OF CONSULTATION: 01/03/2018 CHIEF COMPLAINT: Right arm pain. HISTORY OF PRESENT ILLNESS: Ms. Gordon is a 57-year-old female, who fell 3 days ago. She got tangl ed in her blankets and fell on her right side. She caught herself with her arm and had immediate cristi n. She initially thought she had a bad bruise and this would improve; however, she did not improve a nd worsened. She finally went to the emergency department last night for evaluation. She was transf erred to [facility] after proximal humerus fracture was identified. The patient is currently resti ng comfortably. She is right-hand dominant. ALLERGIES: No known drug allergies. PAST MEDICAL HISTORY: Hypertension; history of breast cancer, status post mastectomy; history of cer ebrovascular accident; history of carotid artery disease. PAST SURGICAL HISTORY: Mastectomy, left hip surgery, previous cervical spine fusion, bilateral carpa l tunnel releases, and carotid endarterectomy. SOCIAL HISTORY: The patient lives at home. She drinks alcohol daily. She smokes cigarettes daily a s well. FAMILY MEDICAL HISTORY: Noncontributory. REVIEW OF SYSTEMS: Positive for right shoulder pain; otherwise, negative 10-point review of systems. PHYSICAL EXAMINATION: VITAL SIGNS: Temperature is 97.7, pulse is 98, respiratory rate is 18, oxygen saturation 97%, blood pressure is 115/72. GENERAL: She is alert and oriented, in no apparent distress. RESPIRATORY: Breathing comfortably. ABDOMEN: Soft, nontender, and nondistended. MUSCULOSKELETAL: The patient's right upper extremity has ecchymosis. She has pain with motion. She is neurovascularly intact in the hand and arm. Palpable pulse. IMAGES: X-rays of the right shoulder demonstrate a 2-part proximal humerus fracture with significant displacement and anterior subluxation of the humeral head. IMPRESSION: Right proximal humerus fracture in a 57-year-old female. PLAN: At this point, the patient will need to go to the operating room for open reduction and product marketing intern al fixation of the proximal humerus. We will plan for this today. She is at risk of nonunion wound complication or other medical complications such as NV, stroke, pneumonia. She is at elevated risk, because of her smoking. Goal of surgery is to restore anatomic alignment and restore healing to the proximal humerus. The patient will have antibiotic prophylaxis, deep venous thrombosis prophylaxis, and should be n.p.o . until surgery.
[2018-01-03 08:34] LABS: Magnesium 1.5 mg/dL (1.6-2.6); Phosphorus 2.9 mg/dL (2.3-4.7)
[2018-01-03 08:36] LABS: Anion Gap 13 mmol/L (10-20); BUN (Urea Nitrogen) 8 mg/dL (9.8-20.1); Calc. Creatinine Clearance 69 mL/min (70-130); Carbon Dioxide 17 mmol/L (22-29); Chloride 99 mmol/L (98-107); Estimated GFR-MDRD 76; Glucose 68 mg/dL (70-105); Potassium 3.1 mmol/L (3.5-5.1); Sodium 126 mmol/L (136-145)
[2018-01-03] MEDS: Folic Acid 1 MG TAB PO SCH (08:45)
[2018-01-03] MEDS: Senokot S 8.6-50 MG TAB PO SCH ×2 (08:45→23:33)
[2018-01-03] MEDS: Famotidine/PF 20 mg/2ml Vial SLOW IVP SCH ×2 (08:46→23:33)
[2018-01-03] MEDS: Metoprolol Tartrate 50 MG TAB PO SCH (12:18)
[2018-01-03] MEDS ORDERED: HYDROmorphone 2 MG/ML VIAL ONE (12:43)
[2018-01-03] MEDS ORDERED: Fentanyl 100 MCG/2 ML VIAL ONE ×3 (12:43→17:59)
[2018-01-03] MEDS ORDERED: Midazolam HCl 2 mg/2 ml Vial ONE ×2 (12:43→14:09)
--- NOTE | 2018-01-03 12:56 | PRG-2 ---
DATE OF SERVICE: 01/03/2018 SUBJECTIVE: This is a 57-year-old female who presented to the [facility] ED as a transfer from an outside facility. Per the patient's history and chart review the patient is status post mechanical fall on Tuesday, which resulted in a right shoulder fracture dislocation with a proximal humerus fracture. The patient was seen by Orthopedic Surgery this morning with plans to take her to the OR later today. On evaluation the patient was reporting significant pain in her right arm and was requesting additional pain medication. OBJECTIVE: GENERAL: Middle-aged female resting in bed in no acute distress. VITAL SIGNS: Temperature 97.7 degrees Fahrenheit, pulse 98, respirations 18, O2 saturation 97% on room air, blood pressure 115/72. PULMONARY: Normal work of breathing with symmetric rise. CARDIOVASCULAR: Regular rate and rhythm with no obvious murmurs, rubs, or gallops. ABDOMEN: Soft, nontender, nondistended. MUSCULOSKELETAL: The patient has tenderness to palpation of right shoulder, but has good strength distal to her site of the injury. No signs of edema, only some significant bruising over her upper arm. NEUROLOGIC: The patient is alert and oriented x3 with no focal deficits noted. LABORATORY DATA: Sodium 126, potassium 3.1, chloride 99, carbon dioxide 17, anion gap 13, BUN 8, creatinine 0.79, estimated GFR 76, glucose 68. Phosphorus 2.9, magnesium 1.5, CK-MB 1.7, troponin I less than 0.010. RADIOLOGIC FINDINGS: No new radiographic findings. ASSESSMENT: 1. Status post mechanical fall. 2. Acute traumatic pain. 3. Right shoulder proximal humerus fracture with subluxation of humeral head. 4. History of hypertension. 5. History of cerebrovascular accident. 6. History of peripheral vascular disease. 7. History of breast cancer status post mastectomy, on chemotherapy. 8. Chronic hyponatremia at baseline. 9. Daily alcohol use. 10. Tobacco abuse. 11. Hypokalemia. 12. Hypomagnesemia. PLAN: The patient will be kept n.p.o. until able to be taken back to the OR this afternoon for repair of right shoulder injuries. We will continue perioperative pain management with p.o. and IV analgesics. We will plan for postoperative PT and OT. We will replace potassium and magnesium and continue to follow. We will continue on daily folic acid and thiamine as well as scheduled Serax due to history of alcohol abuse. The patient has been discussed with the trauma attending. LORETTA
[2018-01-03] MEDS ORDERED: Ropivacaine 0.2% HCl/PF (40 MG/20 ML VIAL) ONE (13:41)
[2018-01-03] MEDS ORDERED: Bupivacaine HCl 0.5%/Epinephrine 1:200,000/PF 30 ml Vial ONE (13:41)
[2018-01-03] MEDS ORDERED: Promethazine HCl 25 MG/ML VIAL IM PRN ×2 (14:21→19:45)
[2018-01-03] MEDS ORDERED: Zolpidem Tartrate 5 MG TAB PO PRN (14:21)
[2018-01-03] MEDS ORDERED: Ropivacaine 0.2% 550 ML 550 ML NERVE BLCK SCH (14:21)
[2018-01-03] MEDS ORDERED: Ketorolac Tromethamine 30 MG/ML VIAL IVP PRN ×2 (14:21→18:00)
[2018-01-03] MEDS ORDERED: Fentanyl 100 MCG/2 ML VIAL IV PRN (14:22)
[2018-01-03] MEDS ORDERED: HYDROcodone/Acetaminophen 7.5/325 mg Tablet PO PRN ×2 (14:24)
[2018-01-03] MEDS ORDERED: CEFAZOLIN/Water 2 GM/20 ML SYRINGE ONE (14:25)
[2018-01-03] MEDS ORDERED: PROVENTIL INHALER 6.7 G (200 INHALATIONS) ONE (15:06)
[2018-01-03] MEDS ORDERED: ePHEDrine/0.9% NaCl/PF SYRINGE 50 mg/10 ml ONE (15:06)
[2018-01-03] MEDS ORDERED: Succinylcholine Chloride 20 MG/ML 10 ml SYRINGE FS ONE (15:06)
[2018-01-03] MEDS ORDERED: PHENYLEPHRINE-NS 100 MCG/ML 10 ML SYRINGE ONE (15:06)
[2018-01-03] MEDS ORDERED: PROPOFOL 200 MG/20 ML VIAL ONE (15:06)
[2018-01-03] MEDS ORDERED: Dexamethasone 20 MG/5 ML VIAL ONE (15:06)
[2018-01-03] MEDS ORDERED: Lidocaine 1% PF 5 ML VIAL ONE (15:06)
[2018-01-03] MEDS ORDERED: Ondansetron HCl/PF 4 MG/2 ML Vial ONE (15:06)
[2018-01-03] MEDS ORDERED: SUGAMMADEX SODIUM 200 MG/2 ML VIAL ONE (19:22)
[2018-01-03] MEDS ORDERED: Meperidine HCl/PF 25 MG/ML VIAL SLOW IVP PRN (19:45)
[2018-01-03] MEDS ORDERED: Morphine Sulfate 2 MG/ML SYRINGE SLOW IVP PRN (19:45)
[2018-01-03] MEDS ORDERED: HYDROmorphone 2 MG/ML VIAL SLOW IVP PRN (19:45)
[2018-01-03] MEDS ORDERED: Promethazine HCl 25 MG/ML VIAL SLOW IVP PRN (19:45)
[2018-01-03] MEDS ORDERED: traMADol HCl 50 MG TAB PO SCH (22:00)
[2018-01-03] MEDS ORDERED: Magnesium Sulfate 3 GM in Sodium Chloride 0.9% 100 ML IVPB SCH (23:00)
[2018-01-03] MEDS ORDERED: Potassium Chloride 40 MEQ in Sodium Chloride 0.9% 250 ML 250 ML IVPB SCH (23:00)
--- NOTE | 2018-01-03 23:15 | RAD ---
RADIOGRAPH RIGHT HUMERUS 3 VIEWS: 01/03/18 at 7:03 p.m. HISTORY: 57-year-old female with fracture of the right humeral neck/head. COMPARISON: 01/02/18 FINDINGS: Fluoroscopic spot images obtained with C-arm in the OR are actually of the shoulder rather than the e ntire humerus. The right humeral head/neck fracture has been reduced with interval improvement in the alignment. There has been interval placement of a lateral metallic side plate abutting the humeral h ead and proximal diaphysis, fixated to the bone by multiple screws. IMPRESSION: Status post open reduction internal fixation of the acute, traumatic, displaced, comminuted fracture of the right humeral head and neck. POS: [facility]
[2018-01-03] MEDS: Acetaminophen 500 MG TAB PO SCH (23:32)
--- NOTE | 2018-01-03 23:33 | OP ---
DATE OF OPERATION: 01/03/2018 OPERATION: Open reduction and internal fixation of right proximal humerus fracture. PREOPERATIVE DIAGNOSIS: Right displaced proximal humerus fracture. POSTOPERATIVE DIAGNOSIS: Right displaced proximal humerus fracture. COMPLICATIONS: None. ESTIMATED BLOOD LOSS: 100 mL. SURGEON: Chris Yung M.D. OFFICE SERVICES SPECIALIST: Jennifer Walker PA-C. IMPLANTS: Synthes proximal humerus plate was utilized with locking and nonlocking screws. INDICATIONS: Ms. Gordon is a 57-year-old female, who fell. She fractured the proximal humerus. Sh e has significant displacement and instability. She was indicated for open reduction and internal fi xation of the fracture to restore anatomic position and relief pain. Risks have been reviewed. Risk s do include avascular necrosis, posttraumatic arthritis, nonunion and others. DESCRIPTION OF PROCEDURE: Ms. Gordon was identified in the preoperative holding area. Her correct extremity was marked. She was carried to the operating room. She was positioned supine. General an esthesia was induced. A multidisciplinary timeout was performed. The right upper extremity was prep ped and draped in sterile fashion. We began the procedure with deltopectoral approach to the shoulde r. We dissected down to the subcutaneous tissues to the deltopectoral interval, which was opened mac ntly. We protected the cephalic vein. At this point, we elevated the deltoid and exposed the fractu red site. We irrigated and removed hematoma. At this point, we manipulated the fracture using stay sutures as well as traction. Once we had a reduced fracture, we held this with K-wires. We then briana lied a Synthes proximal humeral plate laterally on the shoulder. We applied multiple screws distally and proximally. We held the fracture rigidly with this fixation. We filled all screw holes. At th is point, we took final images. We thoroughly irrigated with copious lavage. We then closed with 0 Vicryl suture, 2-0 Vicryl suture, and fan were used for the skin. A sterile dressing was applied . The patient was taken to the recovery room in good condition without complication.
[2018-01-04] MEDS: Oxazepam 10 MG CAP PO SCH ×4 (00:15→23:22)
[2018-01-04] MEDS: CEFAZOLIN/Water 2 GM/20 ML SYRINGE SLOW IVP SCH ×2 (02:18→09:14)
[2018-01-04] MEDS: Acetaminophen 500 MG TAB PO SCH ×4 (03:32→22:10)
[2018-01-04] MEDS: traMADol HCl 50 MG TAB PO SCH ×4 (03:32→22:10)
[2018-01-04 05:03] LABS: #Lymphocytes 0.5 thou/uL (1.20-3.40); #Monocytes 0.1 thou/uL (0.11-0.59); #Neutrophils 4.3 thou/uL (1.40-6.50); %Eosinophils 0.1 % (0.0-10.0); %Lymphocytes 9.6 % (21.0-51.0); %Monocytes 1.2 % (0.0-10.0); %Neutrophils 89.1 % (42.0-75.0); Hemoglobin 9.2 g/dL (12.0-16.0); Mean Corpuscular HGB CONC 34.2 g/dL (32.0-36.0); Mean Corpuscular Hemoglobin 37.1 pg (27.0-31.0); Platelet Count 208 thou/uL (130-400); RBC Distribution Width 13.1 % (11.5-14.5); Red Blood Cell (RBC) Count 2.47 mill/uL (4.20-5.40); White Blood Cell (WBC) Count 4.9 thou/uL (4.8-10.8)
[2018-01-04] MEDS: Ketorolac Tromethamine 30 MG/ML VIAL IVP SCH (05:09)
[2018-01-04 05:22] LABS: Anion Gap 16 mmol/L (10-20); BUN (Urea Nitrogen) 6 mg/dL (9.8-20.1); Calc. Creatinine Clearance 68 mL/min (70-130); Calcium 8.2 mg/dL (7.8-10.44); Carbon Dioxide 15 mmol/L (22-29); Chloride 100 mmol/L (98-107); Estimated GFR-MDRD 74; Glucose 154 mg/dL (70-105); Magnesium 2.2 mg/dL (1.6-2.6); Phosphorus 2.8 mg/dL (2.3-4.7); Potassium 3.5 mmol/L (3.5-5.1); Sodium 127 mmol/L (136-145)
[2018-01-04] MEDS: Sodium Chloride 0.9% 1,000 ML IV SCH ×2 (06:23→20:11)
[2018-01-04] MEDS ORDERED: Enoxaparin Sodium 40 MG/0.4 ML SYRINGE SC SCH (08:15)
--- NOTE | 2018-01-04 09:03 | CT ---
CT BRAIN WITHOUT CONTRAST: Date: 01/04/18 HISTORY: Slurred speech. Altered mental status. Patient has a history of breast cancer. FINDINGS: Absence of IV contrast reduces the sensitivity of exam, particularly for evaluation of intracranial m etastatic disease. Comparison made with exam of 04/09/07. No evidence of acute infarct, hemorrhage, midline shift, or abnormal extra-axial fluid collections ar e seen. There are old lacunar infarcts in the basal ganglia and left thalamus. The ventricular size i s normal and the basilar cisterns are patent. The bony calvarium is intact. The visualized paranasal sinuses are well aerated. IMPRESSION: No CT evidence of acute intracranial process. POS: [facility]
[2018-01-04] MEDS: Nicotine 21 MG PATCH TD SCH ×2 (09:13→09:29)
[2018-01-04] MEDS: Metoprolol Tartrate 50 MG TAB PO SCH ×2 (09:15→20:11)
[2018-01-04] MEDS: Folic Acid 1 MG TAB PO SCH (09:15)
[2018-01-04] MEDS ORDERED: Potassium Chloride 20 MEQ in Premix Bag 1 BAG IVPB SCH (12:00)
--- NOTE | 2018-01-04 12:20 | PRG-2 ---
DATE OF SERVICE: 01/04/2018 SUBJECTIVE: This is a 57-year-old female who presented to the [place] ED as a transfer from an outside facility. The patient is status post a mechanical fall on Tuesday, which resulted in a right shoulder dislocation and proximal humerus fracture. The patient is postop day #1, status post repair of right shoulder fracture and dislocation. On evaluation this morning, the patient reported that her pain was well controlled. However, the patient was noted to be slightly disoriented. She was oriented to person and time, but not place. OBJECTIVE: GENERAL: A middle-aged female resting in bed in no acute distress. VITAL SIGNS: Temperature 97.5 degrees Fahrenheit, pulse 107, respirations 20, O2 saturation 94% on room air, blood pressure 124/80. PULMONARY: Normal work of breathing with symmetric rise. CARDIOVASCULAR: Regular rate and rhythm with no murmurs. ABDOMEN: Soft, nontender, nondistended. MUSCULOSKELETAL: The patient has limited range of motion in the right arm secondary to sling and pain. No signs of significant edema. She has some residual bruising over her right upper arm and chest. NEUROLOGIC: The patient was slightly drowsy and oriented only to person and time, not place. No focal deficits noted, other than some slurred speech which has been present for the entire duration of her hospital stay. LABORATORY DATA: White blood count 4.9, hemoglobin 9.2, hematocrit 26.8, platelets 208. Sodium 127, potassium 3.5, chloride 100, bicarb 15, BUN 6, creatinine 0.8, blood glucose 154. Phosphorus 2.8. Magnesium 2.2. RADIOLOGIC FINDINGS: CT of head negative for any acute intracranial process. ASSESSMENT AND PLAN: 1. Status post mechanical fall. 2. Acute traumatic pain. 3. Right proximal humerus fracture with subluxation of humeral head. 4. History of hypertension. 5. History of cerebrovascular accident. 6. History of peripheral vascular disease. 7. History of breast cancer status post mastectomy, on chemotherapy. 8. Chronic hyponatremia at baseline. 9. Daily alcohol use. 10. Tobacco use. PLAN: We will resume a regular diet today and continue pain management with p.o. pain medications only. Will continue postoperative PT and OT. Will continue on daily folic acid and thiamine as well as scheduled Serax due to history of alcohol abuse. Will resume home dose of sertraline 50 q.a.m., due to patient's altered mental status. CT of head was negative which is reassuring. AMS likely secondary to alcohol withdrawal. We will continue to monitor. Nicotine patch ordered; however, the patient refused it. The patient has been discussed with the trauma attending. LORETTA
[2018-01-04] MEDS ORDERED: HYDROcodone/Acetaminophen 7.5/325 mg Tablet PO PRN ×2 (13:16→13:17)
[2018-01-04] MEDS ORDERED: Potassium Chloride 20 MEQ TAB PO SCH (13:30)
[2018-01-04] MEDS ORDERED: Ropivacaine 0.2% HCl/PF (40 MG/20 ML VIAL) ONE (15:05)
[2018-01-04] MEDS: Senokot S 8.6-50 MG TAB PO SCH ×2 (18:37→20:12)
[2018-01-04] MEDS: Famotidine/PF 20 mg/2ml Vial SLOW IVP SCH ×2 (18:37→20:11)
[2018-01-05] MEDS: Sodium Chloride 0.9% 1,000 ML IV SCH ×2 (04:21→15:21)
[2018-01-05] MEDS: Acetaminophen 500 MG TAB PO SCH ×4 (04:26→23:05)
[2018-01-05] MEDS: traMADol HCl 50 MG TAB PO SCH ×4 (04:26→23:04)
[2018-01-05 06:02] LABS: #Lymphocytes 1.7 thou/uL (1.20-3.40); #Monocytes 0.3 thou/uL (0.11-0.59); #Neutrophils 2.4 thou/uL (1.40-6.50); %Basophils 0.6 % (0.0-1.0); %Eosinophils 0.4 % (0.0-10.0); %Lymphocytes 38.8 % (21.0-51.0); %Monocytes 6.7 % (0.0-10.0); %Neutrophils 53.5 % (42.0-75.0); Hemoglobin 9.1 g/dL (12.0-16.0); Mean Corpuscular HGB CONC 32.4 g/dL (32.0-36.0); Mean Corpuscular Hemoglobin 35.6 pg (27.0-31.0); Mean Platelet Volume 7.6 fL (7.4-10.4); Platelet Count 193 thou/uL (130-400); RBC Distribution Width 13.5 % (11.5-14.5); Red Blood Cell (RBC) Count 2.57 mill/uL (4.20-5.40); White Blood Cell (WBC) Count 4.4 thou/uL (4.8-10.8)
[2018-01-05 06:31] LABS: Anion Gap 10 mmol/L (10-20); BUN (Urea Nitrogen) 4 mg/dL (9.8-20.1); Calc. Creatinine Clearance 85 mL/min (70-130); Calcium 8.3 mg/dL (7.8-10.44); Carbon Dioxide 16 mmol/L (22-29); Chloride 105 mmol/L (98-107); Estimated GFR-MDRD Greater than 90; Glucose 69 mg/dL (70-105); Magnesium 1.7 mg/dL (1.6-2.6); Phosphorus 2.3 mg/dL (2.3-4.7); Potassium 4.3 mmol/L (3.5-5.1); Sodium 127 mmol/L (136-145)
[2018-01-05] MEDS: Enoxaparin Sodium 40 MG/0.4 ML SYRINGE SC SCH (08:21)
[2018-01-05] MEDS: Famotidine/PF 20 mg/2ml Vial SLOW IVP SCH (08:21)
[2018-01-05] MEDS: Nicotine 21 MG PATCH TD SCH ×2 (08:21→08:27)
[2018-01-05] MEDS: Senokot S 8.6-50 MG TAB PO SCH ×2 (08:22→20:03)
[2018-01-05] MEDS: Folic Acid 1 MG TAB PO SCH (08:22)
[2018-01-05] MEDS: Metoprolol Tartrate 50 MG TAB PO SCH ×2 (08:22→20:03)
[2018-01-05] MEDS: Oxazepam 10 MG CAP PO SCH ×2 (08:22→17:49)
[2018-01-05] MEDS: Lisinopril 10 MG TAB PO SCH (10:29)
[2018-01-05] MEDS: Amlodipine 5 MG TAB PO SCH (10:30)
[2018-01-05] MEDS: cloNIDine 0.2 MG TAB PO SCH ×2 (10:31→20:03)
[2018-01-05] MEDS ORDERED: Ketorolac Tromethamine 30 MG/ML VIAL IVP SCH ×2 (11:00→11:15)
[2018-01-05] MEDS ORDERED: Scopolamine 1.5 mg/72 hour Patch TD SCH (11:00)
[2018-01-05] MEDS: Ketorolac Tromethamine 30 MG/ML VIAL IVP SCH ×2 (17:09→23:05)
[2018-01-05] MEDS: Famotidine 20 MG TAB PO SCH (19:54)
--- NOTE | 2018-01-05 20:39 | PRG-2 ---
DATE OF SERVICE: 01/05/2018 Patient was seen by Dr. Sher Bradford. SUBJECTIVE: Ms. Gordon is postop day #2, is minimally mobilizing, will get up to go to the bathroom, appears sleepy. CT brain yesterday for altered mental status was negative. Patient is alert in my visit. She has a regional block in place and the pain seems to be controlled. She has some urinary retention at times and had to be straight cathed. OBJECTIVE: VITAL SIGNS: Blood pressure 118/76, temperature is 98.1, heart rate is 92, oxygen is 97% on room air. GENERAL: This is a 57-year-old female lying in bed, mild distress. HEENT: Normocephalic, atraumatic. NECK: Trachea is midline. RESPIRATORY: Equal rise and fall. Bilateral breath sounds, clear to auscultation upper and lower bilaterally. CARDIOVASCULAR: Regular rate and rhythm. Strong pulses. MUSCULOSKELETAL: Right upper extremity is in a sling. She has ecchymosis, but she has sensation and distal circulation appreciated. ABDOMEN: Soft and nontender. LABORATORY DATA: Today hemoglobin and hematocrit 9.1 and 28.2, which is stable from yesterday. Platelets 193 and a white blood cell count of 4.4. BMP shows sodium is 127, potassium 4.3, chloride is 105, BUN is 4, creatinine 0.64, glucose is 69. Mag is 1.7, phos is 2.3. CT of the head was negative. ASSESSMENT: 1. Status post mechanical fall. 2. Acute traumatic pain. 3. Right proximal humerus fracture with subluxation of the humeral head, status post open reduction internal fixation by ortho. 4. Hypertension. 5. History of cerebrovascular accident. 6. Hyperglycemia with poor p.o. intake. PLAN: Encourage diet, which was done and glucose has responded. We will do point of care glucose checks as needed. In and out catheterization for urinary retention. I have encouraged the patient to ambulate and work with PT. We will continue pain control and Serax for history of alcohol abuse. Continue her home SSRI and monitor patient's mental status. I have coordinate care with the bedside RN. Discharge planning is hopefully going to be rehabilitation. Blood pressure is more controlled. We will continue to watch this and continue the home medications. Anticipate discontinuing her nerve block in the next day and continue with oral pain control. We would like to limit medications that cause altered mental status given the patient's history of a CVA, alcoholism. Ct. Thiamine and folate. MTDD
[2018-01-06] MEDS: Oxazepam 10 MG CAP PO SCH (00:03)
[2018-01-06] MEDS: Sodium Chloride 0.9% 1,000 ML IV SCH (00:04)
[2018-01-06] MEDS: Acetaminophen 500 MG TAB PO SCH ×2 (04:45→10:41)
[2018-01-06] MEDS: traMADol HCl 50 MG TAB PO SCH ×2 (04:45→10:41)
[2018-01-06] MEDS: Ketorolac Tromethamine 30 MG/ML VIAL IVP SCH (05:31)
[2018-01-06] MEDS ORDERED: Ibuprofen 600 MG TAB PO SCH ×2 (08:00→09:45)
[2018-01-06 08:36] VITALS: TEMP 97.9
[2018-01-06] MEDS: Senokot S 8.6-50 MG TAB PO SCH (08:57)
[2018-01-06] MEDS: Folic Acid 1 MG TAB PO SCH (08:58)
[2018-01-06] MEDS: Famotidine 20 MG TAB PO SCH (08:58)
[2018-01-06] MEDS: Enoxaparin Sodium 40 MG/0.4 ML SYRINGE SC SCH (08:59)
[2018-01-06] MEDS ORDERED: Oxazepam 10 MG CAP PO SCH (09:00)
[2018-01-06] MEDS: cloNIDine 0.2 MG TAB PO SCH (10:44)
[2018-01-06] MEDS: Lisinopril 10 MG TAB PO SCH (10:44)
[2018-01-06] MEDS: Amlodipine 5 MG TAB PO SCH (10:44)
[2018-01-06] MEDS: Metoprolol Tartrate 50 MG TAB PO SCH (10:45)
[2018-01-06] MEDS: Nicotine 21 MG PATCH TD SCH (10:45)
[2018-01-06 11:24] VITALS: BP 134/84
--- NOTE | 2018-01-06 23:27 | DIS ---
DATE OF SERVICE: 01/06/2018 DATE OF ADMISSION: 01/03/2018 DATE OF DISCHARGE: 01/06/2018 ADMISSION DIAGNOSES: 1. Status post mechanical fall. 2. Fracture dislocation of the right shoulder. 3. History of hypertension. 4. History of cerebrovascular accident. 5. History of peripheral vascular disease. 6. Breast cancer, status post mastectomy, on chemotherapy. 7. Chronic hyponatremia. 8. Daily alcohol use. 9. Tobacco abuse. DISCHARGE DIAGNOSES: 1. Status post mechanical fall. 2. Fracture dislocation of the right shoulder. 3. History of hypertension. 4. History of cerebrovascular accident. 5. History of peripheral vascular disease. 6. Breast cancer, status post mastectomy, on chemotherapy. 7. Chronic hyponatremia. 8. Daily alcohol use. 9. Tobacco abuse. CRISIS WORKER: Dr. Yung, Orthopedic Surgery. PROCEDURE: 01/03/2018, open reduction internal fixation of right proximal humerus fracture. HOSPITAL COURSE: Stephanie Gordon is a 57-year-old female who presented to [facility] in a delayed ma nner status post fall. The patient fell approximately 3 days prior to admission and was attempting h ome/self-care, but eventually presented to her local emergency room, where she was found to have a ri ght fracture dislocation of her right shoulder. The patient was transferred to [facility] f or further evaluation and care. She underwent operative intervention to her injury on 01/03/2018. O n postop day 1, the patient seemed more confused than her baseline per family at bedside. A head CT was performed, which was negative for acute intracranial abnormality. Given the patient's multiple m edical comorbidities and multiple pain medications, this is likely metabolic in nature. Postop day 2 , the patient's mental status was improved and she was more active; however, her pain was uncontrolle d and she was found to have some vertigo for which a scopolamine patch was added. On postop day 3, t favio patient was doing well and eager for discharge. She had been restarted on her home antihypertensi ves the day prior; however, many of those medications were held prior to discharge secondary to borde rline hypotension. Therefore, her blood pressure medications were adjusted and her primary care prov ider was contacted. She remained medically stable for discharge the afternoon of 01/06/2018. DISCHARGE DISPOSITION: Home. DISCHARGE CONDITION: Fair. PHYSICAL EXAMINATION: VITAL SIGNS: Temperature 97.9, pulse 68, respirations 18, O2 sat 93%-94% on room air, blood pressure 134/84. GENERAL: Resting in bed in no acute distress. PULMONARY: Normal work of breathing, symmetric rise. CARDIOVASCULAR: Regular rate and rhythm. GASTROINTESTINAL: Abdomen is soft, nontender, nondistended. MUSCULOSKELETAL: Right upper extremity sling in place. NEUROLOGIC: No focal deficit is noted. DISCHARGE INSTRUCTIONS: Discharge instructions were provided to the patient, who vocalized her under standing. She should keep any Orthopedic dressings clean, dry, and intact. Weightbearing status as directed by Orthopedic Surgery. DISCHARGE MEDICATIONS: The patient's home amlodipine and clonidine were discontinued. Her home meto prolol dose was cut in half. The patient should remain on her home lisinopril. Additionally, she wa s discharged on thiamine and folic acid supplements; [id number] Tylenol; ibuprofen; scopolamine patch every 3 days, #3; and Ultram 50 mg 1-2 tabs q.6 hours p.r.n. for severe breakthrough pain only , #40. DISCHARGE INSTRUCTIONS: The patient should follow up with her primary care provider within the next 7 days for re-evaluation and adjustment of her antihypertensives. She should follow up with orthoped ic surgery in approximately 10-14 days. She does not need to follow up with Trauma Services, but may call our office with any questions. This is merely a summary of the patient's hospitalization and f or more in-depth information, please see her medical record in its entirety.
== END 2018-01-06 15:55 | disposition home or self-care (01) | DRG 493 ==
LOC: ERS 21:37 → SJJU 01-03 01:21
PROVIDERS: ADMIT Specialist; ATTEND Specialist
PROC: 0PSC04Z Reposition Right Humeral Head with Internal Fixation Device, Open Approach (ICD-10-PCS; principal; 2018-01-03)
DX: S42.201A Unspecified fracture of upper end of right humerus, initial encounter for closed fracture (principal); E87.1 Hypo-osmolality and hyponatremia; F10.239 Alcohol dependence with withdrawal, unspecified; I10 Essential (primary) hypertension; E87.6 Hypokalemia; E83.42 Hypomagnesemia; I73.9 Peripheral vascular disease, unspecified; R73.9 Hyperglycemia, unspecified; F17.210 Nicotine dependence, cigarettes, uncomplicated; Z86.73 Personal history of transient ischemic attack (TIA), and cerebral infarction without residual deficits; W01.0XXA Fall on same level from slipping, tripping and stumbling without subsequent striking against object, initial encounter; Y92.003 Bedroom of unspecified non-institutional (private) residence as the place of occurrence of the external cause; Z85.3 Personal history of malignant neoplasm of breast
CPT/HCPCS: 36415; 36416; 70450; 71260; 74177; 76000; 80048; 80053; 82553; 83735; 84100; 84484; 85025; 85610; 85730; 90471; 90732; 93005; 94760; 96361; 96374; 96375; A4306; C1713; G0009; G0390; G8978-GP-CK; G8979-GP-CI; G8987-GO-CJ; G8988-GO-CI; J0131; J0670; J1100; J1170; J1650; J1885; J2001; J2060; J2250; J2270; J2405; J2704; J2795; J3010; J3475; J3480; J7050; S0028

== ENCOUNTER 2018-01-31 10:33 | Day surgery (SDC) | payer OTHER ==
[2018-01-31 11:51] VITALS: BP 83/50
== END 2018-01-31 11:50 | disposition home or self-care (01) ==
LOC: ONC/OP 10:33
PROVIDERS: ATTEND Internal Medicine Hematology & Oncology
DX: Z51.11 Encounter for antineoplastic chemotherapy (principal); C50.912 Malignant neoplasm of unspecified site of left female breast; D51.3 Other dietary vitamin B12 deficiency anemia; I10 Essential (primary) hypertension; F17.200 Nicotine dependence, unspecified, uncomplicated; Z79.899 Other long term (current) drug therapy

== ENCOUNTER 2018-04-17 06:35 | Outpatient (CLI) | payer OTHER ==
[2018-04-17 13:24] LABS: Hemoglobin 10.7 g/dL (12.0-16.0); Mean Corpuscular HGB CONC 35.8 g/dL (32.0-36.0); Mean Platelet Volume 6.5 fL (7.4-10.4); Platelet Count 305 thou/uL (130-400); Red Blood Cell (RBC) Count 2.97 mill/uL (4.20-5.40); White Blood Cell (WBC) Count 5.5 thou/uL (4.8-10.8)
[2018-04-17 13:27] LABS: Prothrombin Time 13.5 SEC (12.0-14.7)
[2018-04-17 13:34] LABS: Anion Gap 13 mmol/L (10-20); BUN (Urea Nitrogen) 10 mg/dL (9.8-20.1); Calc. Creatinine Clearance 0 mL/min (70-130); Calcium 8.8 mg/dL (7.8-10.44); Carbon Dioxide 17 mmol/L (22-29); Chloride 91 mmol/L (98-107); Estimated GFR-MDRD 87; Glucose 62 mg/dL (70-105); Potassium 4.4 mmol/L (3.5-5.1)
[2018-04-17 13:35] LABS: Sodium 117 mmol/L (136-145)
== END 2018-04-17 06:36 | disposition home or self-care (01) ==
LOC: LABBT 06:35
PROVIDERS: ATTEND Orthopaedic Surgery
DX: Z01.812 Encounter for preprocedural laboratory examination (principal); S42.201D Unspecified fracture of upper end of right humerus, subsequent encounter for fracture with routine healing
CPT/HCPCS: 80048; 85027; 85610

== ENCOUNTER 2018-04-17 12:00 | Inpatient (IN) | payer OTHER ==
[2018-04-25 13:09] LABS: Anion Gap 14 mmol/L (10-20); BUN (Urea Nitrogen) 10 mg/dL (9.8-20.1); Calc. Creatinine Clearance 0 mL/min (70-130); Calcium 9.8 mg/dL (7.8-10.44); Carbon Dioxide 20 mmol/L (22-29); Chloride 101 mmol/L (98-107); Estimated GFR-MDRD 84; Glucose 85 mg/dL (70-105); Potassium 4.5 mmol/L (3.5-5.1); Sodium 130 mmol/L (136-145)
[2018-04-25] MEDS ORDERED: Midazolam HCl 2 mg/2 ml Vial ONE (13:20)
[2018-04-25] MEDS ORDERED: Fentanyl 100 MCG/2 ML VIAL ONE ×2 (13:20→16:47)
[2018-04-25] MEDS ORDERED: CEFAZOLIN 2 GM/50 ML BAG ONE (13:22)
[2018-04-25] MEDS ORDERED: Ondansetron PF 4 MG/2 ML Vial IVP PRN (13:39)
[2018-04-25] MEDS ORDERED: HYDROcodone/Acetaminophen 5/325 mg Tablet PO PRN (13:39)
[2018-04-25] MEDS ORDERED: traMADol HCl 50 MG TAB PO PRN ×2 (13:39)
[2018-04-25] MEDS ORDERED: Fentanyl 100 MCG/2 ML VIAL IV PRN (13:39)
[2018-04-25] MEDS ORDERED: Zolpidem Tartrate 5 MG TAB PO PRN (13:39)
[2018-04-25] MEDS ORDERED: Ropivacaine 0.2% 550 ML 550 ML NERVE BLCK SCH (13:39)
[2018-04-25] MEDS ORDERED: Promethazine HCl 25 MG/ML VIAL IM PRN (13:39)
[2018-04-25] MEDS ORDERED: Ropivacaine 0.5% HCl/PF (150 MG/30 ML VIAL) ONE (13:42)
[2018-04-25] MEDS ORDERED: Ropivacaine 0.2% HCl/PF (40 MG/20 ML VIAL) ONE (13:42)
[2018-04-25] MEDS ORDERED: Rocuronium Bromide 10 MG/ML (10ML VIAL) ONE (14:40)
[2018-04-25] MEDS ORDERED: Glycopyrrolate 0.2 MG/ML 5 ML SYRINGE ONE (14:40)
[2018-04-25] MEDS ORDERED: PROPOFOL 200 MG/20 ML VIAL ONE (14:40)
[2018-04-25] MEDS ORDERED: Ondansetron PF 4 MG/2 ML Vial ONE (14:40)
[2018-04-25] MEDS ORDERED: PHENYLEPHRINE-NS 100 MCG/ML 10 ML SYRINGE ONE (14:40)
[2018-04-25] MEDS ORDERED: Lorazepam 1 MG TAB PO PRN (15:54)
[2018-04-25] MEDS ORDERED: Cyclobenzaprine 10 MG TAB PO PRN (15:54)
[2018-04-25] MEDS ORDERED: Ibuprofen 800 MG TAB PO PRN (15:54)
[2018-04-25] MEDS ORDERED: CEFAZOLIN/Water 2 GM/20 ML SYRINGE SLOW IVP SCH (16:00)
[2018-04-25] MEDS ORDERED: Communication Order-Pharmacy FS PRN (16:00)
[2018-04-25] MEDS ORDERED: Bupivacaine 0.25% HCL 30 ML VIAL ONE (16:59)
[2018-04-25 18:26] VITALS: BMI 21.4
--- NOTE | 2018-04-25 19:37 | RAD ---
RIGHT SHOULDER TWO VIEWS: 04/25/18 HISTORY: Right shoulder replacement. FINDINGS/IMPRESSION: Reverse prosthesis is in place. No perihardware lucency. Irregular ossific fragments project just lat eral to the glenoid and humeral head components of the prosthesis on both views. Skin fan are in place. POS: [facility]
[2018-04-25] MEDS: Metoprolol Tartrate 50 MG TAB PO SCH (21:28)
[2018-04-25] MEDS: Ferrous Gluconate 324 MG TAB PO SCH (21:28)
[2018-04-25] MEDS: cloNIDine 0.2 MG TAB PO SCH (21:29)
[2018-04-25] MEDS: CEFAZOLIN 2 GM/50 ML-DEXTROSE 2 GM in Premix Bag 1 BAG IVPB SCH (21:30)
[2018-04-25] MEDS: Ketorolac Tromethamine 30 MG/ML VIAL IVP SCH (23:19)
--- NOTE | 2018-04-26 00:02 | OP ---
DATE OF PROCEDURE: 04/25/2018 PROCEDURE PERFORMED: Right shoulder hardware removal and right shoulder reverse arthroplasty. PREOPERATIVE DIAGNOSIS: Right shoulder failed fixation of proximal humerus fracture with collapse and hardware prominence. POSTOPERATIVE DIAGNOSIS: Right shoulder failed fixation of proximal humerus fracture with collapse and hardware prominence. COMPLICATIONS: None. ESTIMATED BLOOD LOSS: Minimal. ANESTHESIA: General plus regional. [employer] HEAD INSPECTOR: Jennifer Walker PA-C. IMPLANTS: Tornier reverse shoulder arthroplasty, size 25 mm baseplate with a 6.5 x 30 mm central screw, 36 mm Glenosphere, 6.5 x 150 mm cemented R2 stem, 36 mm metaphysis, +6 mm polyethylene insert. INDICATIONS FOR PROCEDURE: Ms. Gordon is a 58-year-old female who has fallen. She fractured her proximal humerus. She was initially treated with open reduction and internal fixation. Unfortunately, she went on to have collapse of her humerus with prominence of screws. She had failure of rotator cuff. She was indicated for reverse shoulder arthroplasty to restore function of the arm. Risks have been reviewed in detail. She elected to proceed with the operation. DESCRIPTION OF OPERATION: Ms. Gordon was identified in the preoperative holding area. She was carried to the operating room. She was positioned supine. General anesthesia was induced. She was given intravenous antibiotics. At this point, we proceeded with deltopectoral approach to the shoulder. We dissected down through the subcutaneous tissues to the deltopectoral interval which was developed. We then reflected the deltoid and exposed the underlying instrumentation including the proximal humeral plate. All screws were removed and the plate was removed. At this point, we smoothed the bony contour. Next, we exposed the subscapularis. We performed a subscapularis tenotomy under direct visualization. This allowed us to dislocate the humeral head. We resected the humeral head with an oscillating saw. At this point, we retracted the humerus posteriorly and exposed the glenoid. We then cleared the glenoid of cartilage. We made our central drill hole, followed by reaming the glenoid surface. Once we had prepared glenoid surface, we impacted our baseplate. We placed our central screw appropriately. At this point, we placed inferior and superior screws fixing the baseplate to the bone. Finally, we impacted our Glenosphere appropriately. At this point, we re-dislocated the humerus. We reamed the humerus and encountered significant comminution and nonunion of the proximal metaphyseal bone. At this point, we decided to cement our implant. We placed a cement restrictor. We then inserted our stem with an appropriate amount of cement. The stem was held until fully hardened. At this point, we trialed. A +6 poly gave us a good fit with full range of motion and no impingement. We finally placed our final poly component and then reduced the shoulder. At this point, we thoroughly irrigated with copious lavage. We then closed with #5 Ethibond suture for the subscapularis tendon, followed by 2-0 Vicryl and fan. A sterile dressing was applied. Job ID: [id number]
[2018-04-26] MEDS: Ketorolac Tromethamine 30 MG/ML VIAL IVP SCH ×5 (05:15→23:10)
[2018-04-26] MEDS: CEFAZOLIN 2 GM/50 ML-DEXTROSE 2 GM in Premix Bag 1 BAG IVPB SCH ×3 (05:16→21:19)
[2018-04-26 06:42] LABS: #Eosinphils 0.1 thou/uL (0.0-0.7); #Monocytes 0.5 thou/uL (0.11-0.59); #Neutrophils 3.8 thou/uL (1.40-6.50); %Basophils 0.4 % (0.0-1.0); %Lymphocytes 18.4 % (21.0-51.0); %Neutrophils 71.3 % (42.0-75.0); Hemoglobin 9.5 g/dL (12.0-16.0); Mean Corpuscular Hemoglobin 35.5 pg (27.0-31.0); Mean Platelet Volume 6.7 fL (7.4-10.4); Platelet Count 225 thou/uL (130-400); RBC Distribution Width 12.7 % (11.5-14.5); Red Blood Cell (RBC) Count 2.67 mill/uL (4.20-5.40); White Blood Cell (WBC) Count 5.4 thou/uL (4.8-10.8)
[2018-04-26] MEDS: Lisinopril 10 MG TAB PO SCH (07:58)
[2018-04-26] MEDS: Ferrous Gluconate 324 MG TAB PO SCH ×2 (07:58→21:19)
[2018-04-26] MEDS: cloNIDine 0.2 MG TAB PO SCH ×2 (07:58→21:36)
[2018-04-26] MEDS: Calcium Carbonate + Vit D 1 TAB PO SCH (07:58)
[2018-04-26] MEDS: Amlodipine 5 MG TAB PO SCH (07:59)
[2018-04-26] MEDS: Folic Acid 1 MG TAB PO SCH (08:00)
[2018-04-26] MEDS: Famotidine 20 MG TAB PO SCH (08:00)
[2018-04-26] MEDS: Metoprolol Tartrate 50 MG TAB PO SCH ×2 (08:00→21:19)
[2018-04-26] MEDS: Furosemide 20 MG TAB PO SCH (08:00)
[2018-04-26] MEDS: Potassium Chloride 10 MEQ TAB PO SCH (08:01)
[2018-04-26] MEDS: Anastrozole 1 MG TAB PO SCH (09:17)
[2018-04-26] MEDS: HYDROcodone/Acetaminophen 5/325 mg Tablet PO PRN ×3 (12:27→21:42)
[2018-04-27] MEDS: HYDROcodone/Acetaminophen 5/325 mg Tablet PO PRN ×2 (03:31→09:06)
[2018-04-27] MEDS: Ketorolac Tromethamine 30 MG/ML VIAL IVP SCH ×2 (05:08→12:17)
[2018-04-27] MEDS: Amlodipine 5 MG TAB PO SCH (09:04)
[2018-04-27] MEDS: cloNIDine 0.2 MG TAB PO SCH (09:04)
[2018-04-27] MEDS: Famotidine 20 MG TAB PO SCH (09:05)
[2018-04-27] MEDS: Potassium Chloride 10 MEQ TAB PO SCH (09:05)
[2018-04-27] MEDS: Metoprolol Tartrate 50 MG TAB PO SCH (09:05)
[2018-04-27] MEDS: Ferrous Gluconate 324 MG TAB PO SCH (09:05)
[2018-04-27] MEDS: Calcium Carbonate + Vit D 1 TAB PO SCH (09:05)
[2018-04-27] MEDS: Lisinopril 10 MG TAB PO SCH (09:05)
[2018-04-27] MEDS: Furosemide 20 MG TAB PO SCH (09:05)
[2018-04-27] MEDS: Anastrozole 1 MG TAB PO SCH (09:40)
[2018-04-27] MEDS: Folic Acid 1 MG TAB PO SCH (09:40)
[2018-04-27 12:22] VITALS: TEMP 97
[2018-04-27 12:29] VITALS: BP 94/60
== END 2018-04-27 12:40 | disposition home or self-care (01) | DRG 483 ==
LOC: SURG A 04-25 10:45 → SJJU 04-25 18:25
PROVIDERS: ADMIT Orthopaedic Surgery; ATTEND Orthopaedic Surgery
PROC: 0RRJ00Z Replacement of Right Shoulder Joint with Reverse Ball and Socket Synthetic Substitute, Open Approach (ICD-10-PCS; principal; 2018-04-25)
PROC: 0RPJ04Z Removal of Internal Fixation Device from Right Shoulder Joint, Open Approach (ICD-10-PCS; 2018-04-25)
DX: T84.190A Other mechanical complication of internal fixation device of right humerus, initial encounter (principal); Y83.1 Surgical operation with implant of artificial internal device as the cause of abnormal reaction of the patient, or of later complication, without mention of misadventure at the time of the procedure
CPT/HCPCS: 36415; 80048; 85025; A4306; C1713; J1885; J2250; J2405; J2704; J2795; J3010; J3370; S0020

== ENCOUNTER 2019-03-14 07:25 | Outpatient (CLI) | payer OTHER ==
[2019-03-14] MEDS ORDERED: Iopamidol-370 76% 500 ML 1 ML ONE (11:45)
--- NOTE | 2019-03-14 14:38 | CT ---
CT ABDOMEN AND PELVIS WITH INTRAVENOUS CONTRAST: HISTORY: Left breast cancer with liver metastases. The patient has had a left mastectomy and chemotherapy. COMPARISON: 07/26/2017 01/02/2018 FINDINGS: ABDOMEN: The lung bases are clear of any infiltrative process. There are no pulmonary nodules identif ied. Dense calcifications within the right lobe of the liver are stable. Other tiny hypodensities within t he liver are also stable. The spleen and pancreas regions appear unremarkable. The gallbladder is mil dly distended. Small gallstones are noted. The right and left adrenal glands and the right and left kidneys are normal in size. There is no sign ificant periaortic or mesenteric lymphadenopathy. PELVIS: There is no evidence of adenopathy, mass or free fluid. Review of the osseous structures shows postoperative changes of the L4-L5 level. There are some older appearing compression changes involving the superior endplate of L1. No evidence for metastatic dise ase. IMPRESSION: 1. Stable overall examination. 2. Stable appearance to the calcified lesions within the liver and small cystic areas. 3. Cholelithiasis. POS: NINO
== END 2019-03-14 07:26 | disposition home or self-care (01) ==
LOC: BICCT 07:25
PROVIDERS: ATTEND Internal Medicine Hematology & Oncology
DX: C50.912 Malignant neoplasm of unspecified site of left female breast (principal); C78.7 Secondary malignant neoplasm of liver and intrahepatic bile duct; K80.20 Calculus of gallbladder without cholecystitis without obstruction; K76.89 Other specified diseases of liver
CPT/HCPCS: 74177; Q9967

== ENCOUNTER 2019-03-30 15:52 | Inpatient (IN) | payer OTHER ==
[~2019-03-30 15:52] MED LIST changes: -ISOVUE-370 76%-LOCM 1 ML ONE; +Iopamidol-370 76% 500 ML 1 ML ONE
[2019-03-30] MEDS ORDERED: Ondansetron PF 4 MG/2 ML Vial ONE (16:45)
[2019-03-30] MEDS ORDERED: Morphine 4 MG/ML VIAL ONE (16:45)
--- NOTE | 2019-03-30 16:47 | RAD ---
EXAM: Portable chest PROVIDED CLINICAL HISTORY: Tachycardia and cough COMPARISON: 07/22/2012 FINDINGS: Cardiac and mediastinal silhouette is within normal limits. No focal consolidation, pleural fluid or pneumothorax evident. IMPRESSION: No evidence for an acute cardiopulmonary process.
[2019-03-30 16:56] LABS: #Lymphocytes 1.3 thou/uL (1.20-3.40); #Monocytes 0.6 thou/uL (0.11-0.59); #Neutrophils 9.8 thou/uL (1.40-6.50); %Basophils 0.4 % (0.0-1.0); %Eosinophils 0.2 % (0.0-10.0); %Lymphocytes 10.7 % (21.0-51.0); %Monocytes 4.8 % (0.0-10.0); %Neutrophils 83.9 % (42.0-75.0); Hemoglobin 12.9 g/dL (12.0-16.0); Mean Corpuscular HGB CONC 35.1 g/dL (32.0-36.0); Mean Corpuscular Hemoglobin 34.3 pg (27.0-31.0); Mean Corpuscular Volume 97.7 fL (78.0-98.0); Mean Platelet Volume 7.9 fL (7.4-10.4); Platelet Count 351 thou/uL (130-400); RBC Distribution Width 13.1 % (11.5-14.5); Red Blood Cell (RBC) Count 3.76 mill/uL (4.20-5.40); White Blood Cell (WBC) Count 11.7 thou/uL (4.8-10.8)
[2019-03-30 17:11] LABS: ALT (SGPT) 23 U/L (8-55); AST (SGOT) 18 U/L (5-34); Alkaline Phosphatase 103 U/L (40-110); Anion Gap 16 mmol/L (10-20); BUN (Urea Nitrogen) 48 mg/dL (9.8-20.1); Bilirubin, Total 0.5 mg/dL (0.2-1.2); Calc. Creatinine Clearance 0 mL/min (70-130); Calcium 9.5 mg/dL (7.8-10.44); Carbon Dioxide 11 mmol/L (22-29); Chloride 105 mmol/L (98-107); Estimated GFR-MDRD 34; Globulin 4.2 g/dL (2.4-3.5); Glucose 130 mg/dL (70-105); Lipase 134 U/L (8-78); Protein, Total 8.2 g/dL (6.0-8.3); Sodium 129 mmol/L (136-145)
[2019-03-30 17:13] LABS: Potassium 2.8 mmol/L (3.5-5.1)
[2019-03-30 17:29] LABS: Base Excess-Venous -14.8 mmol/L (-2.0 to 3.0); Bicarbonate (HCO3v) 12.4 mmol/L (22.0-28.0); Calcium, Ionized 1.25 mmol/L (See Comments:); Chloride 105 mmol/L (98-107); Hemoglobin - Calc 13.2 g/dL (12.0-16.0); Potassium 3.6 mmol/L (3.5-5.1); Sodium 129 mmol/L (138-145); T. Carbon Dioxide 13.4 mmol/L (22.0-28.0); vO2 Saturation-calc 23.6 % (60.0-85.0)
[2019-03-30] MEDS ORDERED: Potassium Chloride 20 MEQ TAB ONE (18:08)
[2019-03-30] MEDS ORDERED: Potassium Chloride 20 MEQ TAB PO SCH (18:15)
[2019-03-30] MEDS ORDERED: Morphine 4 MG/ML VIAL SLOW IVP SCH (18:15)
[2019-03-30] MEDS ORDERED: Potassium Chloride 40 MEQ in Sodium Chloride 0.9% 500 ML IVPB SCH (18:15)
[2019-03-30] MEDS ORDERED: Multivitamins, Adult 10 ML, Thiamine HCl 100 MG, Folic Acid 1 MG in Dextrose 5 %-0.45 %... IV SCH (18:15)
[2019-03-30] MEDS ORDERED: Sodium Chloride 0.9% 1,000 ML IV SCH (18:15)
--- NOTE | 2019-03-30 18:15 | CT ---
CT ABDOMEN AND PELVIS 03/30/19 PROVIDED CLINICAL HISTORY: Abdominal pain. FINDINGS: Comparison 03/14/19. The visualized lung bases are free of significant opacity. Hypodensity involving the anterior segment of the right hepatic lobe is stable as are calcified ramesh s involving the liver. The pancreas, kidneys, spleen and adrenal glands appear unremarkable. There is no bowel dilatation, inflammatory fat stranding, free fluid, or free air apparent. Evaluation is pedroza ited due to extensive beam hardening artifact from right hip arthroplasty which obscures portions of the pelvis. The gallbladder appears moderately distended. Small gallstones are seen. Extensive atherosclerotic vascular calcification is noted involving the abdominal aorta and iliac sys tem, similar to prior. The osseous structures demonstrate no concerning lytic or blastic lesions. IMPRESSION: 1. Moderate gallbladder distention with gallstones seen. No overt pericholecystic inflammatory c hange. Consider right upper quadrant ultrasound as indicated. 2. Chronic findings as above. POS: THANH
[2019-03-30] MEDS ORDERED: Ondansetron PF 4 MG/2 ML Vial IVP SCH (18:30)
--- NOTE | 2019-03-30 19:56 | ULT ---
GALLBLADDER ULTRASOUND: 03/30/19 HISTORY: Right upper quadrant pain. COMPARISON: CT examination done earlier today. Real time imaging of the right upper quadrant shows a mildly diste nded gallbladder. No gallbladder wall thickening. There is some small echogenic densities within the gallbladder which show questionable faint shadowing. They do appears to represent gallstones when re viewing the previous CT. Dense calcifications seen in the right lobe of the liver. The common bile du ct is 4 mm. Pancreas is obscured. The right kidney is normal in size and not obstructed. IMPRESSION: Mildly distended gallbladder with some small echogenic foci within the fundus region of the gallbladd er with only questionable faint shadowing; however, the appearance on CT is fairly characteristic of small stones. No ductal dilatation. POS: NINO
[2019-03-30 20:02] LABS: Alcohol Less than 10 mg/dL (Less than 10); Anion Gap 13 mmol/L (10-20); BUN (Urea Nitrogen) 45 mg/dL (9.8-20.1); Calc. Creatinine Clearance 0 mL/min (70-130); Calcium 8.1 mg/dL (7.8-10.44); Carbon Dioxide 10 mmol/L (22-29); Chloride 107 mmol/L (98-107); Estimated GFR-MDRD 43; Glucose 118 mg/dL (70-105); Magnesium 1.7 mg/dL (1.6-2.6); Sodium 127 mmol/L (136-145)
[2019-03-30] MEDS ORDERED: Magnesium 2 GM/50 ML BAG (IN WATER) ONE (20:29)
[2019-03-30] MEDS ORDERED: Lidocaine 1% (PF) 30 ML VIAL ONE (20:41)
[2019-03-30 20:59] LABS: Actual Bicarbonate (HCO3a) 8.2 mEq/L (22-28); Analyzer IN Cardio ER; Base Excess (BEa) -17.7 mEq/L (-2.0 to +3.0); Calcium, Ionized 1.19 mmol/L (1.12-1.30); Carboxyhemoglobin (COHb) 0.3 gm% (0.0-3.0); O2 Tension (PaO2) 116.7 mmHg (80.0-100.0); Potassium - ABG Lab 3.71 mmol/L (3.70-5.30)
[2019-03-30 21:04] LABS: CO2 Tension 20.9 mmHg (35.0-45.0); Puncture Site FEMORAL; pH, Arterial 7.21 (7.35-7.45)
[2019-03-30 21:44] LABS: Bacteria/HPF 1+ HPF (None Seen); Bilirubin Negative (Negative); Blood, Urine 1+ (Negative); Clarity Turbid (Clear); Glucose, Urine (Dipstick) Normal (Negative); Leukocyte 500 Leu/uL (Negative); Nitrite 2+ (Negative); Protein, Urine (Dipstick) 30 mg/dL (Neg-Trace); RBC/HPF 0-3 HPF (0-3); Squamous Epithelial 0-3 HPF (0-3); Urobilinogen Normal mg/dL (Less than 2); WBC/HPF Greater than 50 HPF (0-3)
[2019-03-30] MEDS ORDERED: Magnesium 2 GM/50 ML 2 GM in Premix Bag 1 BAG IVPB SCH (22:15)
[2019-03-30] MEDS ORDERED: Sodium Bicarb 50 MEQ/50 ML VIAL IVP SCH (22:30)
[2019-03-30] MEDS ORDERED: Potassium Phosphate 30 MMOL in Sodium Chloride 0.9% 500 ML IVPB SCH (22:30)
[2019-03-30] MEDS ORDERED: Sodium Bicarbonate Tab 325 MG TAB PO SCH (22:45)
[2019-03-30] MEDS ORDERED: Metoprolol Tartrate 50 MG TAB PO SCH (22:45)
--- NOTE | 2019-03-30 23:01 | HP ---
PRESENTING COMPLAINT: Significant weakness. HISTORY OF PRESENT ILLNESS: Evan Brown is a 58-year-old female with history of previous breast lesion, supposedly on hormonal therapy with history of chronic alcohol abuse who was brought in by a friend today because of profound weakness as well as nausea and decreased p.o. intake since over the last 2 weeks. The patient has tried to stop drinking since 2 weeks ago and has been having decreased p.o. intake since then. Friend states the patient has not been able to take any of her medication. On presentation in the ED patient was noted to be in severe metabolic acidosis with low pH of 7.1. She has been admitted for that. The patient is more awake and conversant now. She states she feels much better. She states her nausea has resolved. She is requesting something to drink. She admits to diarrhea about a week ago that has since resolved. She denies any NSAID use, but admits to using Tylenol about 8-10 tablets per day since the last several days because of generalized body aches and weakness. She admits to not having any drink since the last 2 weeks. She is slowly getting much better now. PAST MEDICAL HISTORY: Significant for history of hypertension, history of breast cancer, status post mastectomy, history of CVA. PAST SURGICAL HISTORY: Mastectomy, left hip surgery, cervical spine fusion, carotid endarterectomy. SOCIAL HISTORY: The patient resides with a friends which she is renting. She admits to drinking alcohol daily. She drinks about a case of beer every day, but no drinks in the last 2 weeks. She also smokes about a pack of cigarettes per day. She denies any illicit drug use. FAMILY HISTORY: Positive for coronary artery disease in the parents. REVIEW OF SYSTEMS: All system review x14 were negative except for generalized multiple joint pains as well as malaise. ALLERGIES: NO KNOWN DRUG ALLERGIES. HOME MEDICATIONS: The patient not currently taking any medication, but home medication list from last admission include anastrozole, clonidine, metoprolol, lisinopril, amlodipine, ferrous sulfate, folic acid, thiamine, as well as Protonix PHYSICAL EXAMINATION: CURRENT VITAL SIGNS: Blood pressure of 159/98, pulse of 108, respiratory rate of 16, O2 saturation 100% on room air. GENERAL: Toxic looking, middle-aged female, appears chronically ill looking, initially drowsy, but later became more arousable and conversant. HEENT: Head is atraumatic, normocephalic. Slight tinge of icterus to conjunctiva and sclerae. Dry oral mucosa. NECK: No JVD. No carotid bruit. RESPIRATORY: Good air entry. No crepitation. CARDIOVASCULAR: S1, S2. Tachycardic, irregular. GI: Abdomen is full, soft, nontender. Bowel sounds positive. No suprapubic fullness. No CVA tenderness. EXTREMITIES: No calf tenderness. No pedal edema. NEURO: The patient is awake, conversant, oriented x3. No tremors of the hands. LABORATORY DATA: WBC 11.7, hemoglobin 12.9. Urinalysis shows 500 leukocyte esterase, 1+ bacteria, greater than 50 wbc's. Initial sodium of 129 with potassium of 2.8. Repeat now sodium of 127, potassium of 3.0. Initial bicarb of 11, repeat bicarb now up to 10, BUN 48 with creatinine of 1.6. Repeat BUN is 45 with creatinine of 1.3 now. Glucose 130. Serum osmolality 284. Lactic acid 1.7. Magnesium 1.7. AST and alkaline phosphatase, ALT normal. Albumin of 4.0. Plasma alcohol level less than 10. AB.21 pH, pCO2 of 21, PO2 of 116. Chest x-ray shows no acute intrathoracic abnormality. Abdominal ultrasound shows evidence of possible gallstones but no cholecystitis. IMPRESSION: 1. Anion gap metabolic acidosis, likely due to acetaminophen induced. 2. History of chronic alcohol use. 3. Urinary tract infection. 4. Hypokalemia. 5. Hyponatremia. 6. Hypomagnesemia. PLAN: We will admit the patient to the [facility]. I will manage the patient for the following: Anion gap metabolic acidosis-improving. Low anion gap may be due to Tylenol use in setting of previous alcohol intake or recent diarrhea. We will give IV bicarb x1 now. We will continue to replace potassium. We will switch fluids to D5 NS with potassium. We will start the patient on A regular diet. We can replace as well as we will give banana bag and replace potassium and magnesium level. We will monitor BMP q.4 hours for now. We will start antibiotics for UTI. Follow urine culture. We will do subcutaneous heparin for DVT prophylaxis. Hyponatremia expected to improve with current IV fluid with isotonic fluid. Acute renal failure, likely due to volume depletion. Continue aggressive hydration. The patient might need p.o. sodium bicarb, but will follow with Nephrology as needed. Total time spent in review of record, discussion with patient and evaluation greater than 60 minutes. Job ID: [id number]
[2019-03-31] MEDS: Nicotine 14 MG PATCH TD SCH ×2 (00:02→21:59)
[2019-03-31 00:29] VITALS: BMI 17.9
[2019-03-31] MEDS: D5 0.9% NS w/ 20 mEq KCl 1,000 ML IV SCH ×2 (01:07→05:25)
[2019-03-31 02:51] LABS: Bilirubin Negative (Negative); Blood, Urine 1+ (Negative); Clarity Turbid (Clear); Glucose, Urine (Dipstick) Normal (Negative); Leukocyte 500 Leu/uL (Negative); Nitrite 1+ (Negative); Protein, Urine (Dipstick) Negative (Neg-Trace); RBC/HPF 0-3 HPF (0-3); Squamous Epithelial 0-3 HPF (0-3); Urobilinogen Normal mg/dL (Less than 2); WBC/HPF Greater than 50 HPF (0-3)
[2019-03-31 02:52] LABS: Bacteria/HPF 1+ HPF (None Seen)
[2019-03-31 02:54] LABS: Urine Culture Reflex Yes Yes
[2019-03-31 04:26] LABS: ALT (SGPT) 13 U/L (8-55); AST (SGOT) 13 U/L (5-34); Albumin 2.7 g/dL (3.5-5.0); Alkaline Phosphatase 70 U/L (40-110); Anion Gap 16 mmol/L (10-20); BUN (Urea Nitrogen) 35 mg/dL (9.8-20.1); Bilirubin, Total 0.3 mg/dL (0.2-1.2); Calc. Creatinine Clearance 38 mL/min (70-130); Calcium 7.3 mg/dL (7.8-10.44); Carbon Dioxide 9 mmol/L (22-29); Chloride 112 mmol/L (98-107); Estimated GFR-MDRD 47; Glucose 116 mg/dL (70-105); Potassium 3.8 mmol/L (3.5-5.1); Protein, Total 5.7 g/dL (6.0-8.3); Sodium 133 mmol/L (136-145)
[2019-03-31] MEDS: Sodium Bicarbonate 150 MEQ in Dextrose 5% in Water 1,000 ML IV SCH ×2 (06:02→15:31)
[2019-03-31 07:08] LABS: Acetaminophen Less than 6.0 mcg/mL (10.0-30.0)
[2019-03-31] MEDS ORDERED: Ferrous Sulfate 325 MG TAB PO SCH (08:00)
[2019-03-31] MEDS: Sodium Bicarbonate Tab 325 MG TAB PO SCH ×3 (08:55→20:30)
[2019-03-31] MEDS: Thiamine 100 MG TAB PO SCH (08:55)
[2019-03-31] MEDS: Famotidine 20 MG TAB PO SCH (08:55)
[2019-03-31] MEDS: Metoprolol Tartrate 50 MG TAB PO SCH ×2 (08:56→20:31)
[2019-03-31] MEDS: Folic Acid 1 MG TAB PO SCH (08:56)
[2019-03-31] MEDS: Enoxaparin Sodium 30 MG/0.3 ML SYRINGE SC SCH (08:56)
[2019-03-31] MEDS ORDERED: Nicotine 21 MG PATCH TD SCH (09:00)
[2019-03-31] MEDS ORDERED: FLU VACC QS2019-20(6MOS UP)/PF 60 MCG/0.5 ML SYRINGE IM ONE (09:00)
[2019-03-31] MEDS ORDERED: Famotidine 20 MG TAB PO SCH (09:00)
[2019-03-31 12:49] LABS: Albumin 2.7 g/dL (3.5-5.0); Anion Gap 18 mmol/L (10-20); BUN (Urea Nitrogen) 29 mg/dL (9.8-20.1); BUN/Creatinine Ratio 26.36; Calc. Creatinine Clearance 41 mL/min (70-130); Calcium 7.4 mg/dL (7.8-10.44); Carbon Dioxide 10 mmol/L (22-29); Chloride 114 mmol/L (98-107); Estimated GFR-MDRD 51; Glucose 90 mg/dL (70-105); Magnesium 1.6 mg/dL (1.6-2.6); Phosphorus 3.8 mg/dL (2.3-4.7); Potassium 4.7 mmol/L (3.5-5.1); Sodium 137 mmol/L (136-145)
--- NOTE | 2019-03-31 14:37 | PDOC.HOSPP ---
- Subjective Encounter Date: 03/31/19 Encounter Time: 10:30 Subjective: pt up in bed feels well. - Objective Vital Signs & Weight: Vital Signs (12 hours) Temp Pulse Resp Pulse Ox 03/31/19 14:03 93 16 100 03/31/19 11:39 81 16 100 03/31/19 10:59 97.7 F 03/31/19 08:00 100 03/31/19 07:13 97.8 F 03/31/19 06:55 82 17 100 03/31/19 04:31 97.0 F L Weight Admit Weight 101 lb 4.8 oz Weight 101 lb 4.8 oz Most Recent Monitor Data Heart Rate from ECG 93 NIBP 121/58 NIBP BP-Mean 79 Respiration from ECG 19 SpO2 100 I&O: 03/30/19 03/31/19 04/01/19 06:59 06:59 06:59 Intake Total 2110 720 Output Total 1800 1450 Balance 310 -730 Result Diagrams: 03/30/19 16:37 03/31/19 11:53 Hospitalist ROS - Review of Systems Respiratory: denies: cough, dry, shortness of breath, hemoptysis, SOB with excertion, pleuritic pain, sputum, wheezing, other Cardiovascular: denies: chest pain, palpitations, orthopnea, paroxysmal noc. dyspnea, edema, light headedness, other Gastrointestinal: denies: nausea, vomiting, abdominal pain, diarrhea, constipation, melena, hematochezia, other - Medication Medications: Active Medications Generic Name Dose Route Start Last Admin Trade Name Freq PRN Reason Stop Dose Admin Albuterol/Ipratropium 3 ml 03/30/19 22:30 03/31/19 14:03 Duoneb NEB 3 ml [id number] ALFREDA Administration Enoxaparin Sodium 30 mg 03/31/19 09:00 03/31/19 08:56 Lovenox SC 30 mg 0900 ALFREDA Administration Famotidine 20 mg 03/31/19 09:00 03/31/19 08:55 Pepcid PO 20 mg DAILY ALFREDA Administration Ferrous Sulfate 324 mg 03/31/19 08:00 03/31/19 08:55 Feosol PO 324 mg BID-WM ALFREDA Administration Folic Acid 1 mg 03/31/19 09:00 03/31/19 08:56 Folvite PO 1 mg DAILY ALFREDA Administration Sodium Bicarbonate 150 meq/ 1,150 mls @ 125 mls/hr 03/31/19 05:15 03/31/19 06 :02 Dextrose/Water IV 1,150 mls INF ALFREDA Administration Metoprolol Tartrate 50 mg 03/31/19 09:00 03/31/19 08:56 Lopressor PO 50 mg BID ALFREDA Administration Nicotine 14 mg 03/30/19 22:30 03/31/19 00:02 Nicoderm Patch TD 14 mg Q24HR ALFREDA Administration Sertraline HCl 50 mg 03/31/19 09:00 03/31/19 08:55 Zoloft PO 50 mg QAM ALFREDA Administration Sodium Bicarbonate 650 mg 03/31/19 09:00 03/31/19 08:55 Bicarbonate, Sodium PO 650 mg TID ALFREDA Administration Thiamine HCl 100 mg 03/31/19 09:00 03/31/19 08:55 Thiamine PO 100 mg DAILY ALFREDA Administration - Exam Neck: negative: supple, symmetric, no JVD, no thyromegaly, no lymphadenopathy, no carotid bruit, JVD Heart: negative: RRR, no murmur, no gallops, no rubs, normal peripheral pulses, irregular, diminshed peripheral pulses, murmur present, II/IV, III/IV Respiratory: negative: CTAB, no wheezes, no rales, no ronchi, normal chest expansion, no tachypnea, normal percussion, rales, rhonchi, tachypneic, wheezes Hosp A/P (1) Metabolic acidosis Code(s): E87.2 - ACIDOSIS Status: Acute (2) CARMEN (acute kidney injury) Code(s): N17.9 - ACUTE KIDNEY FAILURE, UNSPECIFIED Status: Acute (3) UTI (urinary tract infection) Status: Acute (4) Hyponatremia Code(s): E87.1 - HYPO-OSMOLALITY AND HYPONATREMIA Status: Acute (5) Alcohol abuse Code(s): F10.10 - ALCOHOL ABUSE, UNCOMPLICATED Status: Acute - Plan will continue current abx. will check bmp later today. will initiate ASE protocol. will monitor.
[2019-03-31] MEDS: Acetaminophen 325 MG TAB PO PRN (17:23)
[2019-03-31 17:46] LABS: Anion Gap 17 mmol/L (10-20); BUN (Urea Nitrogen) 25 mg/dL (9.8-20.1); Calc. Creatinine Clearance 47 mL/min (70-130); Calcium 7.2 mg/dL (7.8-10.44); Carbon Dioxide 19 mmol/L (22-29); Chloride 101 mmol/L (98-107); Estimated GFR-MDRD 59; Glucose 84 mg/dL (70-105); Sodium 134 mmol/L (136-145)
[2019-03-31 17:51] LABS: Potassium 2.6 mmol/L (3.5-5.1)
--- NOTE | 2019-03-31 18:09 | CON ---
DATE OF CONSULTATION: 03/31/2019 SERVICE: Nephrology. REASON FOR CONSULTATION: Acute kidney injury and electrolyte derangements. REQUESTING PHYSICIAN: Dr. Sean Velasquez. HISTORY OF PRESENT ILLNESS: This is a 58-year-old female with known history of breast cancer on Arimidex, chronic alcohol abuse, was brought to the hospital due to worsening weakness as well as nausea and poor oral intake since about 2 weeks. The patient also had frequent loose stools, which has subsided in the last two days. On presentation, the patient was found to be in severe metabolic acidosis with pH of 7.1 as well as hypokalemia and acute elevation in creatinine, hence, admitted for further evaluation and treatment. The patient reported taking 8 to 10 tablets of acetaminophen in the last several days for generalized body aches and weakness. She also admitted to chronic alcohol use, but denied any alcohol beverage in the last 2 weeks prior to presentation. She reports feeling better related to her condition on presentation. Denied fever, chest pain, shortness of breath, palpitation, hematemesis, hematochezia, dysuria, hematuria, leg swelling, or abdominal pain. She also denied suicidal attempt. PAST MEDICAL HISTORY: 1. Breast cancer. 2. Prior cerebrovascular accident. 3. Hypertension. 4. Chronic alcohol abuse. 5. Tobacco abuse disorder. PAST SURGICAL HISTORY: 1. Mastectomy. 2. Left hip surgery. 3. Cervical spine fusion. 4. Carotid endarterectomy. FAMILY HISTORY: Positive for coronary artery disease in both parents. SOCIAL HISTORY: The patient lives with a friend. Admits to chronic alcohol abuse as well as chronic smoking, but has not used any in the last 2 weeks. She smoked about a pack a day for several years. Denied recreational drug use. ALLERGIES: NO KNOWN DRUG ALLERGIES REPORTED. HOME MEDICATIONS: 1. Arimidex 1 mg p.o. daily. 2. Calcium carbonate 1500 mg with 400 units of vitamin D tablets one p.o. daily. 3. Flexeril 10 mg p.o. t.i.d. 4. Ferrous sulfate 325 mg p.o. b.i.d. 5. Folic acid 1 mg p.o. daily. 6. Ibuprofen 800 mg p.o. t.i.d. p.r.n. 7. Lisinopril 10 mg p.o. daily. 8. Lorazepam 1 mg p.o. b.i.d. p.r.n. 9. Metoprolol 50 mg p.o. b.i.d. 10. Ranitidine 75 p.o. b.i.d. 11. Zoloft 50 mg p.o. daily. REVIEW OF SYSTEMS: A 12-point review of system performed was negative other than pertinent positives and negatives included in the history of present illness. PHYSICAL EXAMINATION: VITAL SIGNS: Temperature 97.8, pulse 81, respiratory rate 16, SpO2 100%, blood pressure is 137/75. GENERAL: Chronically ill-looking female, in no obvious distress. Afebrile. Anicteric. Acyanotic. HEENT: Normocephalic, atraumatic. Oral mucosa is moist. NECK: Supple with no JVD. CARDIOVASCULAR: Regular rhythm and rate with normal heart sounds one and two. RESPIRATORY: Fair air entry bilaterally with few transmitted breath sounds. No obvious crackle or rhonchi or use of accessory muscles appreciated. GI: Full, soft, nondistended with normal bowel sounds. EXTREMITIES: Grossly normal looking atraumatic with no edema or erythema. Diffuse muscular atrophy noted. TAILER OUT: Conscious and alert oriented x3 with appropriate mental status. Cranial nerves 2 through 12 are grossly intact. PSYCHIATRIC: Flat affect noted. LABORATORY DATA: CBC on March 30 showed WBC count of 11.7, hemoglobin of 12.9, MCV of 97.7, platelet of 351. Arterial blood gas performed on March 30, 2019, showed pH of 7.21, pCO2 of 20.9, pO2 of 116. CMP earlier today showed sodium 133, potassium 3.8, chloride 112, CO2 of 9, BUN 35, creatinine 1.19, glucose 116, calcium 7.3, total bilirubin 0.3, AST 13, ALT 13, alkaline phosphatase 70, total protein 5.7, albumin 2.7, globulin 3.0. Of note on presentation; sodium was 129, potassium 2.8, chloride 105. BUN 48, creatinine 1.59, glucose 130, calcium 9.5, total bilirubin 0.5, AST 18, ALT 23, alkaline phosphatase 103, total protein 8.2, albumin 4.0, globulin 4.2. Ionized calcium did on presentation was 1.19. Urinalysis on presentation showed light yellow turbid urine with pH of 6.0, specific gravity of 1.025, urine protein of 13 mg/dL, normal glucose, negative ketone, 1+ blood, 2+ nitrite, negative bilirubin, normal urobilinogen, elevated leukocyte esterase. Microscopy showed 0 to 3 rbc and greater than 50 wbc with 1+ bacteria. Chest x-ray performed on presentation showed cardiomediastinal silhouette within normal limits with no focal consolidation, pleural fluid or pneumothorax evident. CT scan of the abdomen and pelvis without contrast showed moderate gallbladder distention with gallstones. However, no overt pericholecystitis inflammatory changes were noted. Hypodensity involving the anterior segment of right hepatic lobe is noted to be stable as calcified masses involving the liver. The pancreas, kidneys, spleen, and adrenal glands appear unremarkable and there was no bowel dilatation, inflammatory fat stranding, free fluid or free air apparent. Right upper quadrant ultrasound performed showed mildly distended gallbladder with some small echogenic foci within the fundus region of the gallbladder. There was no ductal dilatation. ASSESSMENT: 1. Acute kidney injury. 2. Volume depletion. 3. Metabolic acidosis: Due to GI losses from chronic diarrhea, which just subsided. 4. History of hypertension. 5. Hypokalemia: Due to poor oral intake and GI losses from chronic diarrhea. 6. Hyponatremia: Due to volume depletion with appropriate ADH secretion. 7. Chronic alcohol abuse. 8. Hypocalcemia. 9. Hypomagnesemia. 10. Protein calorie malnutrition. PLAN: 1. We will start the patient on sodium bicarb infusion. 2. We will replete sodium. We will replete serum potassium with potassium chloride. 3. We will get vitamin D level and replete if indicated. 4. We will monitor electrolytes closely and replete as needed. 5. Further treatment as per primary attending. 6. We will also start the patient on dietary supplementation given protein calorie malnutrition. 7. Further treatment to follow depending on hospital course. Many thanks for involving us in the care of this patient. Job ID: [id number]
[2019-03-31] MEDS ORDERED: Potassium Chloride 20 MEQ TAB PO SCH ×2 (18:15→21:00)
[2019-03-31] MEDS: Ferrous Sulfate 325 MG TAB PO SCH (20:31)
[2019-04-01] MEDS ORDERED: Sodium Bicarbonate 150 MEQ in Dextrose 5% in Water 1,000 ML IV SCH (01:45)
[2019-04-01 06:25] LABS: #Lymphocytes 1.4 thou/uL (1.20-3.40); #Monocytes 0.6 thou/uL (0.11-0.59); #Neutrophils 4.3 thou/uL (1.40-6.50); %Basophils 0.3 % (0.0-1.0); %Eosinophils 0.4 % (0.0-10.0); %Lymphocytes 21.9 % (21.0-51.0); %Neutrophils 68.3 % (42.0-75.0); Hemoglobin 10.3 g/dL (12.0-16.0); Mean Corpuscular HGB CONC 34.7 g/dL (32.0-36.0); Mean Corpuscular Hemoglobin 33.8 pg (27.0-31.0); Mean Corpuscular Volume 97.4 fL (78.0-98.0); Mean Platelet Volume 7.4 fL (7.4-10.4); Platelet Count 322 thou/uL (130-400); RBC Distribution Width 12.8 % (11.5-14.5); Red Blood Cell (RBC) Count 3.06 mill/uL (4.20-5.40); White Blood Cell (WBC) Count 6.3 thou/uL (4.8-10.8)
[2019-04-01] MEDS: Ondansetron PF 4 MG/2 ML Vial IVP PRN ×2 (06:35→21:43)
[2019-04-01 06:43] LABS: ALT (SGPT) 11 U/L (8-55); AST (SGOT) 11 U/L (5-34); Albumin 2.7 g/dL (3.5-5.0); Alkaline Phosphatase 77 U/L (40-110); Anion Gap 14 mmol/L (10-20); BUN (Urea Nitrogen) 17 mg/dL (9.8-20.1); Bilirubin, Total 0.5 mg/dL (0.2-1.2); Calc. Creatinine Clearance 50 mL/min (70-130); Carbon Dioxide 29 mmol/L (22-29); Chloride 96 mmol/L (98-107); Estimated GFR-MDRD 63; Globulin 3.1 g/dL (2.4-3.5); Glucose 122 mg/dL (70-105); Potassium 3.3 mmol/L (3.5-5.1); Protein, Total 5.8 g/dL (6.0-8.3); Sodium 136 mmol/L (136-145)
[2019-04-01] MEDS ORDERED: Potassium Chloride 20 MEQ TAB PO SCH (07:45)
[2019-04-01] MEDS: Anastrozole 1 MG TAB PO SCH (08:12)
[2019-04-01] MEDS: Enoxaparin Sodium 30 MG/0.3 ML SYRINGE SC SCH (08:12)
[2019-04-01] MEDS: Ferrous Sulfate 325 MG TAB PO SCH ×2 (08:13→21:41)
[2019-04-01] MEDS: Metoprolol Tartrate 50 MG TAB PO SCH ×2 (08:13→21:43)
[2019-04-01] MEDS: Folic Acid 1 MG TAB PO SCH (08:13)
[2019-04-01] MEDS: Famotidine 20 MG TAB PO SCH (08:13)
[2019-04-01] MEDS: Sodium Bicarbonate Tab 325 MG TAB PO SCH (08:14)
[2019-04-01] MEDS: Thiamine 100 MG TAB PO SCH (08:14)
[2019-04-01] MEDS: Calcium Carbonate + Vit D 1 TAB PO SCH (08:40)
[2019-04-01] MEDS ORDERED: Ondansetron PF 4 MG/2 ML Vial SLOW IVP SCH (12:30)
[2019-04-01] MEDS: Acetaminophen 325 MG TAB PO PRN (12:49)
[2019-04-01] MEDS: Lactated Ringer's 1,000 ML IV SCH ×2 (12:51→21:43)
--- NOTE | 2019-04-01 13:54 | PDOC.HOSPP ---
- Subjective Encounter Date: 04/01/19 Encounter Time: 11:30 Subjective: pt up in bed complains of nausea today. - Objective Vital Signs & Weight: Vital Signs (12 hours) Temp Pulse Resp BP BP BP Pulse Ox 04/01/19 12:00 125/78 04/01/19 10:59 98.0 F 104 H 20 125/78 100 04/01/19 08:00 100 04/01/19 07:33 98.3 F 104 H 20 117/72 100 04/01/19 04:00 98.1 F 104 H 18 115/73 115/73 100 Weight Admit Weight 101 lb 4.8 oz Weight 101 lb 4.8 oz Most Recent Monitor Data Heart Rate from ECG 93 NIBP 121/58 NIBP BP-Mean 79 Respiration from ECG 19 SpO2 100 I&O: 03/31/19 04/01/19 04/02/19 06:59 06:59 06:59 Intake Total 2110 2895 Output Total 1800 1450 Balance 310 1445 Result Diagrams: 04/01/19 06:14 04/01/19 06:14 Hospitalist ROS - Review of Systems Cardiovascular: denies: chest pain, palpitations, orthopnea, paroxysmal noc. dyspnea, edema, light headedness, other Gastrointestinal: denies: nausea, vomiting, abdominal pain, diarrhea, constipation, melena, hematochezia, other Genitourinary: denies: dysuria, frequency, incontinence, hematuria, retention, other - Medication Medications: Active Medications Generic Name Dose Route Start Last Admin Trade Name Freq PRN Reason Stop Dose Admin Acetaminophen 650 mg 03/31/19 16:44 04/01/19 12:49 Tylenol PO 650 mg Q6H PRN Administration Mild-Moderate Pain (1-5) Albuterol/Ipratropium 3 ml 03/30/19 22:30 04/01/19 09:57 Duoneb NEB Not Given L5CI-PR [facility] Anastrozole 1 mg 04/01/19 09:00 04/01/19 08:12 Arimidex PO 1 mg QAM ALFREDA Administration Calcium/Vitamin D 1 tab 04/01/19 09:00 04/01/19 08:40 Caltrate 600 + Vit D PO Not Given DAILY [facility] Enoxaparin Sodium 30 mg 03/31/19 09:00 04/01/19 08:12 Lovenox SC Not Given 0900 [facility] Famotidine 20 mg 03/31/19 09:00 04/01/19 08:13 Pepcid PO Not Given DAILY [facility] Ferrous Sulfate 325 mg 03/31/19 21:00 04/01/19 08:13 Feosol PO Not Given BID [facility] Folic Acid 1 mg 03/31/19 09:00 04/01/19 08:13 Folvite PO 1 mg DAILY ALFREDA Administration Lactated Ringer's 1,000 mls @ 100 mls/hr 04/01/19 11:30 04/01/19 12:51 Lactated Ringer's IV 1,000 mls .Q10H ALFREDA Administration Metoprolol Tartrate 50 mg 03/31/19 09:00 04/01/19 08:13 Lopressor PO Not Given BID [facility] Nicotine 14 mg 03/30/19 22:30 03/31/19 21:59 Nicoderm Patch TD 14 mg Q24HR ALFREDA Administration Ondansetron HCl 4 mg 04/01/19 06:29 04/01/19 06:35 Zofran IVP 4 mg Q8H PRN Administration Nausea/Vomiting Ondansetron HCl 4 mg 04/01/19 12:30 04/01/19 12:49 Zofran SLOW IVP 04/01/19 14:30 4 mg NOW ALFREDA Administration Sertraline HCl 50 mg 03/31/19 09:00 04/01/19 08:13 Zoloft PO 50 mg QAM ALFREDA Administration Sodium Bicarbonate 650 mg 03/31/19 09:00 04/01/19 08:14 Bicarbonate, Sodium PO 650 mg TID ALFREDA Administration Thiamine HCl 100 mg 03/31/19 09:00 04/01/19 08:14 Thiamine PO Not Given DAILY [facility] - Exam Heart: negative: RRR, no murmur, no gallops, no rubs, normal peripheral pulses, irregular, diminshed peripheral pulses, murmur present, II/IV, III/IV Respiratory: negative: CTAB, no wheezes, no rales, no ronchi, normal chest expansion, no tachypnea, normal percussion, rales, rhonchi, tachypneic, wheezes Gastrointestinal: negative: soft, non-tender, non-distended, normal bowel sounds , no palpable masses, no hepatomegaly, no splenomegaly, no bruit, no guarding, no rigidity, tender to palpation, distended, diminished bowl sounds, voluntary guarding Hosp A/P (1) Metabolic acidosis Code(s): E87.2 - ACIDOSIS Status: Acute (2) CARMEN (acute kidney injury) Code(s): N17.9 - ACUTE KIDNEY FAILURE, UNSPECIFIED Status: Acute (3) UTI (urinary tract infection) Status: Acute (4) Hyponatremia Code(s): E87.1 - HYPO-OSMOLALITY AND HYPONATREMIA Status: Acute (5) Alcohol abuse Code(s): F10.10 - ALCOHOL ABUSE, UNCOMPLICATED Status: Acute - Plan will continue current abx. will check bmp later today. will initiate ASE protocol. will monitor. 04/01 pt was nauseated today. will continue ppi and zofran. her hh is stable. If her nausea worsens may consider getting gi. Her lipase was 134. pt on thiamine and folic acid. Her bicarb has been stabilized. will stop po bicarb. will change her abx to ceftin.
[2019-04-01] MEDS ORDERED: Promethazine HCl 25 MG/ML VIAL IM/IV PRN (16:37)
--- NOTE | 2019-04-01 19:24 | PRG ---
DATE OF SERVICE: 04/01/2019 SERVICE: Nephrology. SUBJECTIVE: A 58-year-old female with chronic alcohol abuse, being followed up for acute kidney injury and electrolyte derangement. The patient complains of nausea, but no vomiting as well as abdominal discomfort. Oral intake is still suboptimal. Denied fever, shortness of breath, or dizziness. OBJECTIVE: VITAL SIGNS: Temperature 98.3, pulse 104, respiratory rate 20, SpO2 of 100% on room air, blood pressure is 117/72. GENERAL: Chronically ill-looking female, in no obvious distress. Afebrile. Anicteric. Acyanotic. HEENT: Normocephalic, atraumatic. Oral mucosa is moist. CARDIOVASCULAR: Regular rhythm and rate, but tachycardic. RESPIRATORY: Fair air entry bilaterally with few transmitted breath sounds, but no obvious crackle or rhonchi or use of accessory muscles. GI: Full, soft with mild left lower quadrant tenderness. Bowel sound is normoactive. EXTREMITIES: Grossly normal looking, atraumatic with no edema or erythema. 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 Cranial nerves 2 through 12 are grossly intact. DIAGNOSTIC DATA: CBC showed WBC count of 6.3, hemoglobin of 10.3, platelet of 322. BMP showed sodium 136, potassium 3.3, chloride 96, CO2 of 29, BUN 17, creatinine 0.92, glucose 122, calcium 7.0, total bilirubin 0.5, AST 11, ALT 11, alkaline phosphatase 77, total protein 5.8, albumin 2.7, globulin 3.1. 25-hydroxyvitamin D 28.8. Urine culture grew E coli which is [place] sensitive. ASSESSMENT: 1. Acute kidney injury: Due to volume depletion related to poor oral intake and increased GI losses. Creatinine has improved from more than 1.2 on presentation to 0.9 currently. 2. Volume depletion: Due to poor oral intake, increased GI losses as well as alcohol induced diuresis. Improving with IV fluid therapy. 3. Metabolic acidosis: Resolved with sodium bicarbonate infusion. 4. Hypokalemia: Due to poor oral intake and GI losses. Total body store is depleted due to chronic poor oral intake. 5. Hyponatremia: Due to volume depletion with appropriate ADH secretion: Resolved with IV fluid therapy. 6. Chronic alcohol abuse. 7. Hypocalcemia. 8. Vitamin D deficiency. 9. Hypomagnesemia. 10. Protein-calorie malnutrition. 11. Gallbladder distention without obvious cholecystitis. PLAN: 1. We will substitute sodium bicarbonate infusion with LR given resolution of metabolic acidosis. 2. We will replete serum potassium as well as magnesium. 3. We will start calcium and vitamin D supplementation. 4. [place] oral intake advised. 5. Oral supplementation with Ensure Enlive will be commenced. 6. Further treatment as per primary attending. We will recheck renal function panel in the morning. Job ID: [id number]
[2019-04-01] MEDS: Cefuroxime Axetil 250 MG TAB PO SCH (21:43)
[2019-04-02] MEDS: Nicotine 14 MG PATCH TD SCH (00:56)
[2019-04-02 06:23] LABS: Anion Gap 13 mmol/L (10-20); BUN (Urea Nitrogen) 9 mg/dL (9.8-20.1); BUN/Creatinine Ratio 10.47; Calc. Creatinine Clearance 53 mL/min (70-130); Calcium 7.4 mg/dL (7.8-10.44); Carbon Dioxide 31 mmol/L (22-29); Chloride 95 mmol/L (98-107); Estimated GFR-MDRD 68; Glucose 94 mg/dL (70-105); Phosphorus 2.8 mg/dL (2.3-4.7); Potassium 3.6 mmol/L (3.5-5.1); Sodium 135 mmol/L (136-145)
[2019-04-02] MEDS ORDERED: Lorazepam 2 MG/ML VIAL SLOW IVP SCH (08:45)
[2019-04-02] MEDS: Famotidine 20 MG TAB PO SCH (09:37)
[2019-04-02] MEDS: Metoprolol Tartrate 50 MG TAB PO SCH ×2 (09:38→20:48)
[2019-04-02] MEDS: Cefuroxime Axetil 250 MG TAB PO SCH ×2 (09:38→20:47)
[2019-04-02] MEDS: Thiamine 100 MG TAB PO SCH (09:38)
[2019-04-02] MEDS: Ferrous Sulfate 325 MG TAB PO SCH ×2 (09:38→20:48)
[2019-04-02] MEDS: Anastrozole 1 MG TAB PO SCH (09:38)
[2019-04-02] MEDS: Calcium Carbonate + Vit D 1 TAB PO SCH (09:38)
[2019-04-02] MEDS: Folic Acid 1 MG TAB PO SCH (09:38)
[2019-04-02] MEDS: Enoxaparin Sodium 30 MG/0.3 ML SYRINGE SC SCH (09:39)
[2019-04-02] MEDS: Lactated Ringer's 1,000 ML IV SCH (09:45)
[2019-04-02] MEDS: Cholecalciferol (Vitamin D3) 400 UNITS TAB PO SCH (09:45)
--- NOTE | 2019-04-02 10:25 | PRG ---
DATE OF SERVICE: 04/02/2019 SERVICE: Nephrology. SUBJECTIVE: A 58-year-old female with known chronic alcohol abuse, admitted due to abnormal labs and generalized weakness. Nephrology is following patient for multiple electrolyte derangements, acute kidney injury, and metabolic acidosis. The patient is still having nausea with poor oral intake. Denied fever, shortness of breath, dizziness, or abdominal pain. OBJECTIVE: VITAL SIGNS: Temperature 98.1, pulse 106, respiratory rate 20, SpO2 of 98% on room air, and blood pressure is 147/85. GENERAL: Chronically ill-looking female, in no obvious distress. Afebrile, anicteric. HEENT: Normocephalic and atraumatic. NECK: Supple with no JVD. CARDIOVASCULAR: Regular rhythm and rate, but tachycardic. RESPIRATORY: Fair air entry bilaterally with transmitted breath sounds. No rhonchi were appreciated. GI: Full, soft, nondistended, nontender with normal bowel sounds. EXTREMITIES: Grossly normal looking, atraumatic with no obvious edema or erythema. Diffuse muscle atrophy noted. PHOTO SPECIALIST: Conscious and alert, oriented x3 with appropriate mental status. Cranial nerves 2 through 12 are grossly intact. DIAGNOSTIC DATA: Renal function panel today showed sodium 135, potassium 3.6, chloride 95, CO2 of 31, BUN 9, creatinine 0.86, glucose 94, calcium 7.4, phosphorus 2.8, and albumin 3.0. ASSESSMENT: 1. Acute kidney injury: Due to volume depletion from poor oral intake, increased gastrointestinal losses, and alcohol induced diuresis. Creatinine continued to trend downward to 0.8 from admission level of 1.2. 2. Volume depletion due to gastrointestinal losses. Improved with IV fluid therapy. 3. Worsening metabolic alkalosis due to sodium bicarb containing IV fluid. Contraction alkalosis is unlikely as the patient seems close to euvolemia. 4. Metabolic acidosis: Resolved with sodium bicarbonate infusion. 5. Hypokalemia: Resolved. 6. Hyponatremia: Improved. 7. Chronic alcohol abuse. 8. Hypocalcemia. 9. Vitamin D deficiency. 10. Hypomagnesemia. 11. Moderate to severe protein-calorie malnutrition. PLAN: 1. We will substitute LR with sodium chloride infusion given worsening alkalosis. We will also start potassium and magnesium supplementation. 2. We will continue calcium and vitamin D supplementation. 3. Antiemetic as needed. 4. [place] oral intake advised. In view of marked improvement of electrolytes and resolution of acute kidney injury, Nephrology will sign off at this time. Please call for any clarification or questions. Job ID: [id number]
[2019-04-02] MEDS ORDERED: Clopidogrel Bisulfate 75 MG TAB ONE (12:51)
[2019-04-02] MEDS: Sodium Chloride 0.9% 1,000 ML IV SCH ×2 (12:54→20:56)
[2019-04-02] MEDS ORDERED: Lorazepam 2 MG/ML VIAL SLOW IVP PRN (14:12)
--- NOTE | 2019-04-02 14:12 | PDOC.HOSPP ---
- Subjective Encounter Date: 04/02/19 Encounter Time: 10:15 Subjective: pt up in bed and is hungry and wants to eat. - Objective Vital Signs & Weight: Vital Signs (12 hours) Temp Pulse Resp BP BP Pulse Ox 04/02/19 08:00 98.1 F 106 H 20 147/85 H 98 04/02/19 03:36 97.8 F 102 H 18 134/83 97 Weight Admit Weight 101 lb 4.8 oz Weight 101 lb 4.8 oz Most Recent Monitor Data Heart Rate from ECG 93 NIBP 121/58 NIBP BP-Mean 79 Respiration from ECG 19 SpO2 100 I&O: 04/01/19 04/02/19 04/03/19 06:59 06:59 06:59 Intake Total 2895 2650 240 Output Total 1450 Balance 1445 2650 240 Result Diagrams: 04/01/19 06:14 04/02/19 05:36 Hospitalist ROS - Review of Systems Cardiovascular: denies: chest pain, palpitations, orthopnea, paroxysmal noc. dyspnea, edema, light headedness, other Gastrointestinal: denies: nausea, vomiting, abdominal pain, diarrhea, constipation, melena, hematochezia, other Genitourinary: denies: dysuria, frequency, incontinence, hematuria, retention, other - Medication Medications: Active Medications Generic Name Dose Route Start Last Admin Trade Name Freq PRN Reason Stop Dose Admin Acetaminophen 650 mg 03/31/19 16:44 04/01/19 12:49 Tylenol PO 650 mg Q6H PRN Administration Mild-Moderate Pain (1-5) Anastrozole 1 mg 04/01/19 09:00 04/02/19 09:38 Arimidex PO 1 mg QAM ALFREDA Administration Calcium/Vitamin D 1 tab 04/01/19 09:00 04/02/19 09:38 Caltrate 600 + Vit D PO 1 tab DAILY ALFREDA Administration Cefuroxime Axetil 250 mg 04/01/19 21:00 04/02/19 09:38 Ceftin PO 250 mg Q12HR ALFREDA Administration Chlordiazepoxide HCl 10 mg 04/02/19 09:00 04/02/19 09:38 Librium PO 10 mg TID ALFREDA Administration Cholecalciferol 400 units 04/02/19 09:00 04/02/19 09:45 Vitamin D PO 400 units DAILY ALFREDA Administration Enoxaparin Sodium 30 mg 03/31/19 09:00 04/02/19 09:39 Lovenox SC 30 mg 0900 ALFREDA Administration Famotidine 20 mg 03/31/19 09:00 04/02/19 09:37 Pepcid PO 20 mg DAILY ALFREDA Administration Ferrous Sulfate 325 mg 03/31/19 21:00 04/02/19 09:38 Feosol PO 325 mg BID ALFREDA Administration Folic Acid 1 mg 03/31/19 09:00 04/02/19 09:38 Folvite PO 1 mg DAILY ALFREDA Administration Sodium Chloride 1,000 mls @ 100 mls/hr 04/02/19 10:00 04/02/19 12:54 Normal Saline 0.9% IV 1,000 mls .Q10H ALFREDA Administration Metoprolol Tartrate 50 mg 03/31/19 09:00 04/02/19 09:38 Lopressor PO 50 mg BID ALFREDA Administration Nicotine 14 mg 03/30/19 22:30 04/02/19 00:56 Nicoderm Patch TD Not Given Q24HR [facility] Ondansetron HCl 4 mg 04/01/19 06:29 04/01/19 21:43 Zofran IVP 4 mg Q8H PRN Administration Nausea/Vomiting Promethazine HCl 12.5 mg 04/01/19 16:37 04/01/19 18:01 Phenergan IM/IV 12.5 mg Q8H PRN Administration Nausea/Vomiting Sertraline HCl 50 mg 03/31/19 09:00 04/02/19 09:38 Zoloft PO 50 mg QAM ALFREDA Administration Thiamine HCl 100 mg 03/31/19 09:00 04/02/19 09:38 Thiamine PO 100 mg DAILY ALFREDA Administration - Exam Neck: negative: supple, symmetric, no JVD, no thyromegaly, no lymphadenopathy, no carotid bruit, JVD Heart: negative: RRR, no murmur, no gallops, no rubs, normal peripheral pulses, irregular, diminshed peripheral pulses, murmur present, II/IV, III/IV Respiratory: negative: CTAB, no wheezes, no rales, no ronchi, normal chest expansion, no tachypnea, normal percussion, rales, rhonchi, tachypneic, wheezes Gastrointestinal: negative: soft, non-tender, non-distended, normal bowel sounds , no palpable masses, no hepatomegaly, no splenomegaly, no bruit, no guarding, no rigidity, tender to palpation, distended, diminished bowl sounds, voluntary guarding Hosp A/P (1) Metabolic acidosis Code(s): E87.2 - ACIDOSIS Status: Acute (2) CARMEN (acute kidney injury) Code(s): N17.9 - ACUTE KIDNEY FAILURE, UNSPECIFIED Status: Acute (3) UTI (urinary tract infection) Status: Acute (4) Hyponatremia Code(s): E87.1 - HYPO-OSMOLALITY AND HYPONATREMIA Status: Acute (5) Alcohol abuse Code(s): F10.10 - ALCOHOL ABUSE, UNCOMPLICATED Status: Acute (6) Low vitamin D level Code(s): R79.89 - OTHER SPECIFIED ABNORMAL FINDINGS OF BLOOD CHEMISTRY Status : Acute - Plan will continue current abx. will check bmp later today. will initiate ASE protocol. will monitor. 04/01 pt was nauseated today. will continue ppi and zofran. her hh is stable. If her nausea worsens may consider getting gi. Her lipase was 134. pt on thiamine and folic acid. Her bicarb has been stabilized. will stop po bicarb. will change her abx to ceftin. 04/02 pt does have metastatic breast cancer ( lesion to liver). will advance her diet and hold off on gi consult. will continue ppi. she was given ativan for possible withdrawal.
[2019-04-03] MEDS: Nicotine 14 MG PATCH TD SCH ×2 (07:31→21:14)
[2019-04-03] MEDS: Cefuroxime Axetil 250 MG TAB PO SCH ×2 (08:55→21:14)
[2019-04-03] MEDS: Anastrozole 1 MG TAB PO SCH (08:56)
[2019-04-03] MEDS: Famotidine 20 MG TAB PO SCH (08:57)
[2019-04-03] MEDS: Calcium Carbonate + Vit D 1 TAB PO SCH (08:57)
[2019-04-03] MEDS: Cholecalciferol (Vitamin D3) 400 UNITS TAB PO SCH (08:57)
[2019-04-03] MEDS: Ferrous Sulfate 325 MG TAB PO SCH ×2 (08:57→21:13)
[2019-04-03] MEDS: Magnesium Oxide 400 MG TAB PO SCH (08:58)
[2019-04-03] MEDS: Thiamine 100 MG TAB PO SCH (08:58)
[2019-04-03] MEDS: Folic Acid 1 MG TAB PO SCH (09:03)
[2019-04-03] MEDS: Potassium Chloride 20 MEQ TAB PO SCH (09:04)
[2019-04-03] MEDS: Metoprolol Tartrate 50 MG TAB PO SCH ×2 (09:04→21:14)
[2019-04-03] MEDS: Enoxaparin Sodium 30 MG/0.3 ML SYRINGE SC SCH (09:04)
[2019-04-03] MEDS: Sodium Chloride 0.9% 1,000 ML IV SCH (09:20)
[2019-04-03 09:42] LABS: #Eosinphils 0.1 thou/uL (0.0-0.7); #Lymphocytes 1.7 thou/uL (1.20-3.40); #Monocytes 0.3 thou/uL (0.11-0.59); #Neutrophils 2.7 thou/uL (1.40-6.50); %Basophils 0.7 % (0.0-1.0); %Eosinophils 1.1 % (0.0-10.0); %Lymphocytes 35.4 % (21.0-51.0); %Monocytes 6.9 % (0.0-10.0); %Neutrophils 55.9 % (42.0-75.0); Hemoglobin 10.3 g/dL (12.0-16.0); Mean Corpuscular HGB CONC 34.2 g/dL (32.0-36.0); Mean Corpuscular Hemoglobin 34.1 pg (27.0-31.0); Mean Corpuscular Volume 99.9 fL (78.0-98.0); Mean Platelet Volume 7.3 fL (7.4-10.4); Platelet Count 268 thou/uL (130-400); RBC Distribution Width 12.7 % (11.5-14.5); White Blood Cell (WBC) Count 4.9 thou/uL (4.8-10.8)
[2019-04-03 10:08] LABS: ALT (SGPT) 15 U/L (8-55); AST (SGOT) 27 U/L (5-34); Albumin 2.7 g/dL (3.5-5.0); Alkaline Phosphatase 84 U/L (40-110); Anion Gap 16 mmol/L (10-20); BUN (Urea Nitrogen) 6 mg/dL (9.8-20.1); Bilirubin, Total 0.6 mg/dL (0.2-1.2); Calc. Creatinine Clearance 57 mL/min (70-130); Calcium 6.9 mg/dL (7.8-10.44); Carbon Dioxide 21 mmol/L (22-29); Chloride 100 mmol/L (98-107); Estimated GFR-MDRD 74; Globulin 3.4 g/dL (2.4-3.5); Glucose 120 mg/dL (70-105); Protein, Total 6.1 g/dL (6.0-8.3); Sodium 133 mmol/L (136-145)
--- NOTE | 2019-04-03 14:24 | PDOC.HOSPP ---
- Subjective Encounter Date: 04/03/19 Encounter Time: 11:20 Subjective: pt up in bed appears confused. - Objective Vital Signs & Weight: Vital Signs (12 hours) Temp Pulse Resp BP BP BP Pulse Ox 04/03/19 12:00 98.4 F 63 18 158/82 H 99 04/03/19 08:00 98.3 F 79 04/03/19 07:54 98.3 F 79 16 129/81 96 04/03/19 04:00 97.8 F 90 20 112/72 112/72 92 L Weight Admit Weight 101 lb 4.8 oz Weight 101 lb 4.8 oz Most Recent Monitor Data Heart Rate from ECG 93 NIBP 121/58 NIBP BP-Mean 79 Respiration from ECG 19 SpO2 100 I&O: 04/02/19 04/03/19 04/04/19 06:59 06:59 06:59 Intake Total 2650 2300 200 Balance 2650 2300 200 Result Diagrams: 04/03/19 09:30 04/03/19 09:26 Hospitalist ROS - Review of Systems Cardiovascular: denies: chest pain, palpitations, orthopnea, paroxysmal noc. dyspnea, edema, light headedness, other Gastrointestinal: denies: nausea, vomiting, abdominal pain, diarrhea, constipation, melena, hematochezia, other Genitourinary: denies: dysuria, frequency, incontinence, hematuria, retention, other - Medication Medications: Active Medications Generic Name Dose Route Start Last Admin Trade Name Freq PRN Reason Stop Dose Admin Acetaminophen 650 mg 03/31/19 16:44 04/01/19 12:49 Tylenol PO 650 mg Q6H PRN Administration Mild-Moderate Pain (1-5) Anastrozole 1 mg 04/01/19 09:00 04/03/19 08:56 Arimidex PO 1 mg QAM ALFREDA Administration Calcium/Vitamin D 1 tab 04/01/19 09:00 04/03/19 08:57 Caltrate 600 + Vit D PO 1 tab DAILY ALFREDA Administration Cefuroxime Axetil 250 mg 04/01/19 21:00 04/03/19 08:55 Ceftin PO 250 mg Q12HR ALFREDA Administration Chlordiazepoxide HCl 10 mg 04/02/19 09:00 04/03/19 08:57 Librium PO 10 mg TID ALFREDA Administration Cholecalciferol 400 units 04/02/19 09:00 04/03/19 08:57 Vitamin D PO 400 units DAILY [facility] Administration Enoxaparin Sodium 30 mg 03/31/19 09:00 04/03/19 09:04 Lovenox SC 30 mg 0900 [facility] Administration Famotidine 20 mg 03/31/19 09:00 04/03/19 08:57 Pepcid PO 20 mg DAILY ALFREDA Administration Ferrous Sulfate 325 mg 03/31/19 21:00 04/03/19 08:57 Feosol PO 325 mg BID [facility] Administration Folic Acid 1 mg 03/31/19 09:00 04/03/19 09:03 Folvite PO 1 mg DAILY [facility] Administration Magnesium Oxide 400 mg 04/03/19 09:00 04/03/19 08:58 Magnesium Oxide PO 400 mg DAILY [facility] Administration Metoprolol Tartrate 50 mg 03/31/19 09:00 04/03/19 09:04 Lopressor PO 50 mg BID [facility] Administration Nicotine 14 mg 03/30/19 22:30 04/03/19 07:31 Nicoderm Patch TD Not Given Q24HR [facility] Ondansetron HCl 4 mg 04/01/19 06:29 04/01/19 21:43 Zofran IVP 4 mg Q8H PRN Administration Nausea/Vomiting Potassium Chloride 20 meq 04/03/19 08:00 04/03/19 09:04 K-Dur PO 20 meq QAM-WM [facility] Administration Promethazine HCl 12.5 mg 04/01/19 16:37 04/01/19 18:01 Phenergan IM/IV 12.5 mg Q8H PRN Administration Nausea/Vomiting Sertraline HCl 50 mg 03/31/19 09:00 04/03/19 09:03 Zoloft PO 50 mg QAM [facility] Administration Thiamine HCl 100 mg 03/31/19 09:00 04/03/19 08:58 Thiamine PO 100 mg DAILY [facility] Administration - Exam Neck: negative: supple, symmetric, no JVD, no thyromegaly, no lymphadenopathy, no carotid bruit, JVD Heart: negative: RRR, no murmur, no gallops, no rubs, normal peripheral pulses, irregular, diminshed peripheral pulses, murmur present, II/IV, III/IV Respiratory: negative: CTAB, no wheezes, no rales, no ronchi, normal chest expansion, no tachypnea, normal percussion, rales, rhonchi, tachypneic, wheezes Hosp A/P (1) Metabolic acidosis Code(s): E87.2 - ACIDOSIS Status: Acute (2) CARMEN (acute kidney injury) Code(s): N17.9 - ACUTE KIDNEY FAILURE, UNSPECIFIED Status: Acute (3) UTI (urinary tract infection) Status: Acute (4) Hyponatremia Code(s): E87.1 - HYPO-OSMOLALITY AND HYPONATREMIA Status: Acute (5) Alcohol abuse Code(s): F10.10 - ALCOHOL ABUSE, UNCOMPLICATED Status: Acute (6) Low vitamin D level Code(s): R79.89 - OTHER SPECIFIED ABNORMAL FINDINGS OF BLOOD CHEMISTRY Status : Acute - Plan will continue current abx. will check bmp later today. will initiate ASE protocol. will monitor. 04/01 pt was nauseated today. will continue ppi and zofran. her hh is stable. If her nausea worsens may consider getting gi. Her lipase was 134. pt on thiamine and folic acid. Her bicarb has been stabilized. will stop po bicarb. will change her abx to ceftin. 04/02 pt does have metastatic breast cancer ( lesion to liver). will advance her diet and hold off on gi consult. will continue ppi. she was given ativan for possible withdrawal. 04/03 pt knows where she is but states she is getting . she is able to eat. she does have diarrhea, will check cdiff. labs stable.
--- NOTE | 2019-04-03 14:33 | EKG ---
Test Reason : Blood Pressure : / mmHG Vent. Rate : 113 BPM Atrial Rate : 113 BPM P-R Int : 172 ms QRS Dur : 082 ms QT Int : 338 ms P-R-T Axes : 075 059 080 degrees QTc Int : 463 ms Sinus tachycardia Possible Left atrial enlargement Nonspecific ST and T wave abnormality Abnormal ECG Confirmed by KAY CAMEJO DO ([id number]), tape editor MARIS POE ([id number] on 04/03/2019 2:33:03 PM Referred By: Confirmed By:KAY CAMEJO DO
[2019-04-04] MEDS: Acetaminophen 325 MG TAB PO PRN (06:20)
[2019-04-04 06:27] LABS: #Lymphocytes 1.5 thou/uL (1.20-3.40); #Monocytes 0.4 thou/uL (0.11-0.59); #Neutrophils 2.2 thou/uL (1.40-6.50); %Basophils 1.2 % (0.0-1.0); %Eosinophils 0.9 % (0.0-10.0); %Lymphocytes 36.2 % (21.0-51.0); %Monocytes 8.6 % (0.0-10.0); %Neutrophils 53.2 % (42.0-75.0); Hemoglobin 9.9 g/dL (12.0-16.0); Mean Corpuscular HGB CONC 34.7 g/dL (32.0-36.0); Mean Corpuscular Hemoglobin 34.3 pg (27.0-31.0); Mean Corpuscular Volume 98.9 fL (78.0-98.0); Mean Platelet Volume 6.8 fL (7.4-10.4); Platelet Count 218 thou/uL (130-400); RBC Distribution Width 12.6 % (11.5-14.5); Red Blood Cell (RBC) Count 2.88 mill/uL (4.20-5.40); White Blood Cell (WBC) Count 4.1 thou/uL (4.8-10.8)
[2019-04-04 06:42] LABS: ALT (SGPT) 15 U/L (8-55); AST (SGOT) 24 U/L (5-34); Albumin 2.9 g/dL (3.5-5.0); Alkaline Phosphatase 80 U/L (40-110); Anion Gap 12 mmol/L (10-20); BUN (Urea Nitrogen) 6 mg/dL (9.8-20.1); Bilirubin, Total 0.6 mg/dL (0.2-1.2); Calc. Creatinine Clearance 56 mL/min (70-130); Calcium 7.5 mg/dL (7.8-10.44); Carbon Dioxide 28 mmol/L (22-29); Chloride 99 mmol/L (98-107); Estimated GFR-MDRD 73; Globulin 3.3 g/dL (2.4-3.5); Glucose 95 mg/dL (70-105); Potassium 3.2 mmol/L (3.5-5.1); Protein, Total 6.2 g/dL (6.0-8.3); Sodium 136 mmol/L (136-145)
[2019-04-04] MEDS ORDERED: Potassium Chloride 20 MEQ TAB PO SCH ×2 (07:15→14:00)
[2019-04-04] MEDS: Calcium Carbonate + Vit D 1 TAB PO SCH (08:30)
[2019-04-04] MEDS: Famotidine 20 MG TAB PO SCH (08:30)
[2019-04-04] MEDS: Cefuroxime Axetil 250 MG TAB PO SCH ×2 (08:30→20:30)
[2019-04-04] MEDS: Potassium Chloride 20 MEQ TAB PO SCH (08:30)
[2019-04-04] MEDS: Magnesium Oxide 400 MG TAB PO SCH (08:31)
[2019-04-04] MEDS: Metoprolol Tartrate 50 MG TAB PO SCH ×2 (08:31→20:30)
[2019-04-04] MEDS: Folic Acid 1 MG TAB PO SCH (08:31)
[2019-04-04] MEDS: Ferrous Sulfate 325 MG TAB PO SCH ×2 (08:32→20:30)
[2019-04-04] MEDS: Anastrozole 1 MG TAB PO SCH (08:32)
[2019-04-04] MEDS: Enoxaparin Sodium 40 MG/0.4 ML SYRINGE SC SCH (08:32)
[2019-04-04] MEDS: Thiamine 100 MG TAB PO SCH (08:32)
[2019-04-04] MEDS: Cholecalciferol (Vitamin D3) 400 UNITS TAB PO SCH (08:40)
[2019-04-04] MEDS ORDERED: Enoxaparin Sodium 30 MG/0.3 ML SYRINGE SC SCH (09:00)
--- NOTE | 2019-04-04 13:47 | PDOC.HOSPP ---
- Subjective Encounter Date: 04/04/19 Encounter Time: 10:15 Subjective: pt up in bed is confused, states she is getting . she is also not eating much per nursing. - Objective Vital Signs & Weight: Vital Signs (12 hours) Temp Pulse Resp BP BP BP Pulse Ox 04/04/19 12:00 97.8 F 54 L 18 146/83 H 99 04/04/19 08:00 98.6 F 78 16 158/78 H 97 04/04/19 04:00 98.5 F 73 18 175/94 H 175/94 H 92 L Weight Admit Weight 101 lb 4.8 oz Weight 101 lb 4.8 oz Most Recent Monitor Data Heart Rate from ECG 93 NIBP 121/58 NIBP BP-Mean 79 Respiration from ECG 19 SpO2 100 I&O: 04/03/19 04/04/19 04/05/19 06:59 06:59 06:59 Intake Total 2300 1900 Output Total 800 Balance 2300 1100 Result Diagrams: 04/04/19 06:05 04/04/19 06:05 Hospitalist ROS - Review of Systems Cardiovascular: denies: chest pain, palpitations, orthopnea, paroxysmal noc. dyspnea, edema, light headedness, other Gastrointestinal: denies: nausea, vomiting, abdominal pain, diarrhea, constipation, melena, hematochezia, other Genitourinary: denies: dysuria, frequency, incontinence, hematuria, retention, other - Medication Medications: Active Medications Generic Name Dose Route Start Last Admin Trade Name Freq PRN Reason Stop Dose Admin Acetaminophen 650 mg 03/31/19 16:44 04/04/19 06:20 Tylenol PO 650 mg Q6H PRN Administration Mild-Moderate Pain (1-5) Anastrozole 1 mg 04/01/19 09:00 04/04/19 08:32 Arimidex PO 1 mg QAM ALFREDA Administration Calcium/Vitamin D 1 tab 04/01/19 09:00 04/04/19 08:30 Caltrate 600 + Vit D PO 1 tab DAILY ALFREDA Administration Cefuroxime Axetil 250 mg 04/01/19 21:00 04/04/19 08:30 Ceftin PO 250 mg Q12HR ALFREDA Administration Cholecalciferol 400 units 04/02/19 09:00 04/04/19 08:40 Vitamin D PO 400 units DAILY ALFREDA Administration Enoxaparin Sodium 40 mg 04/04/19 09:00 04/04/19 08:32 Lovenox SC 40 mg 0900 [facility] Administration Famotidine 20 mg 03/31/19 09:00 04/04/19 08:30 Pepcid PO 20 mg DAILY [facility] Administration Ferrous Sulfate 325 mg 03/31/19 21:00 04/04/19 08:32 Feosol PO 325 mg BID [facility] Administration Folic Acid 1 mg 03/31/19 09:00 04/04/19 08:31 Folvite PO 1 mg DAILY [facility] Administration Magnesium Oxide 400 mg 04/03/19 09:00 04/04/19 08:31 Magnesium Oxide PO 400 mg DAILY [facility] Administration Metoprolol Tartrate 50 mg 03/31/19 09:00 04/04/19 08:31 Lopressor PO 50 mg BID [facility] Administration Nicotine 14 mg 03/30/19 22:30 04/03/19 21:14 Nicoderm Patch TD Not Given Q24HR [facility] Ondansetron HCl 4 mg 04/01/19 06:29 04/01/19 21:43 Zofran IVP 4 mg Q8H PRN Administration Nausea/Vomiting Potassium Chloride 20 meq 04/03/19 08:00 04/04/19 08:30 K-Dur PO 20 meq QAM-WM [facility] Administration Promethazine HCl 12.5 mg 04/01/19 16:37 04/01/19 18:01 Phenergan IM/IV 12.5 mg Q8H PRN Administration Nausea/Vomiting Sertraline HCl 50 mg 03/31/19 09:00 04/04/19 08:32 Zoloft PO 50 mg QAM [facility] Administration Thiamine HCl 100 mg 03/31/19 09:00 04/04/19 08:32 Thiamine PO 100 mg DAILY [facility] Administration - Exam Respiratory: negative: CTAB, no wheezes, no rales, no ronchi, normal chest expansion, no tachypnea, normal percussion, rales, rhonchi, tachypneic, wheezes Gastrointestinal: negative: soft, non-tender, non-distended, normal bowel sounds , no palpable masses, no hepatomegaly, no splenomegaly, no bruit, no guarding, no rigidity, tender to palpation, distended, diminished bowl sounds, voluntary guarding Extremities: negative: no cyanosis, no clubbing, no edema, 1+ LE edema, 2+ LE edema, clubbing Skin: negative: normal turgor, no lesions, no rashes, tenting Hosp A/P (1) Metabolic acidosis Code(s): E87.2 - ACIDOSIS Status: Acute (2) CARMEN (acute kidney injury) Code(s): N17.9 - ACUTE KIDNEY FAILURE, UNSPECIFIED Status: Acute (3) UTI (urinary tract infection) Status: Acute (4) Hyponatremia Code(s): E87.1 - HYPO-OSMOLALITY AND HYPONATREMIA Status: Acute (5) Alcohol abuse Code(s): F10.10 - ALCOHOL ABUSE, UNCOMPLICATED Status: Acute (6) Low vitamin D level Code(s): R79.89 - OTHER SPECIFIED ABNORMAL FINDINGS OF BLOOD CHEMISTRY Status : Acute - Plan will continue current abx. will check bmp later today. will initiate ASE protocol. will monitor. 04/01 pt was nauseated today. will continue ppi and zofran. her hh is stable. If her nausea worsens may consider getting gi. Her lipase was 134. pt on thiamine and folic acid. Her bicarb has been stabilized. will stop po bicarb. will change her abx to ceftin. 04/02 pt does have metastatic breast cancer ( lesion to liver). will advance her diet and hold off on gi consult. will continue ppi. she was given ativan for possible withdrawal. 04/03 pt knows where she is but states she is getting . she is able to eat. she does have diarrhea, will check cdiff. labs stable. 04/04 pt knows where she is but keeps stating she is getting . will discontinue librium and see how she does. if her confusion continues may get ct brain. her cdiff negative.
[2019-04-04] MEDS: Nicotine 14 MG PATCH TD SCH (20:30)
[2019-04-05] MEDS: Calcium Carbonate + Vit D 1 TAB PO SCH (08:24)
[2019-04-05] MEDS: Famotidine 20 MG TAB PO SCH (08:24)
[2019-04-05] MEDS: Enoxaparin Sodium 40 MG/0.4 ML SYRINGE SC SCH (08:24)
[2019-04-05] MEDS: Folic Acid 1 MG TAB PO SCH (08:24)
[2019-04-05] MEDS: Ferrous Sulfate 325 MG TAB PO SCH (08:24)
[2019-04-05] MEDS: Thiamine 100 MG TAB PO SCH (08:25)
[2019-04-05] MEDS: Magnesium Oxide 400 MG TAB PO SCH (08:25)
[2019-04-05] MEDS: Potassium Chloride 20 MEQ TAB PO SCH (08:25)
[2019-04-05] MEDS: Cholecalciferol (Vitamin D3) 400 UNITS TAB PO SCH (08:25)
[2019-04-05] MEDS: Cefuroxime Axetil 250 MG TAB PO SCH (08:25)
[2019-04-05] MEDS: Anastrozole 1 MG TAB PO SCH (08:25)
[2019-04-05] MEDS: Metoprolol Tartrate 50 MG TAB PO SCH (08:25)
[2019-04-05] MEDS ORDERED: Amlodipine 5 MG TAB PO SCH (09:15)
[2019-04-05 09:50] LABS: Albumin 3.4 g/dL (3.5-5.0); Anion Gap 12 mmol/L (10-20); BUN (Urea Nitrogen) 7 mg/dL (9.8-20.1); BUN/Creatinine Ratio 8.14; Calc. Creatinine Clearance 53 mL/min (70-130); Calcium 8.4 mg/dL (7.8-10.44); Carbon Dioxide 26 mmol/L (22-29); Chloride 103 mmol/L (98-107); Estimated GFR-MDRD 68; Glucose 71 mg/dL (70-105); Magnesium 1.4 mg/dL (1.6-2.6); Phosphorus 3.2 mg/dL (2.3-4.7); Potassium 3.9 mmol/L (3.5-5.1); Sodium 137 mmol/L (136-145)
[2019-04-05] MEDS ORDERED: Magnesium Oxide 400 MG TAB PO SCH (11:45)
[2019-04-05 12:08] VITALS: BP 153/88; TEMP 97.9
--- NOTE | 2019-04-05 16:02 | PQF ---
CLINICAL DOCUMENTATION IMPROVEMENT CLARIFICATION FORM: ICD-10 Updated PLEASE DO AN ADDENDUM TO THE PROGRESS NOTE WITH ANY DOCUMENTATION UPDATES OR ADDITIONS AND CARRY THROUGH TO DC SUMMARY. THANK YOU. Date: 04/09/19 ATTN : DR. MENJIVAR Please exercise your independent, professional judgment in responding to the clarification form. Clinical indicators are provided on the bottom of this form for your review Please check appropriate box(s): [ ] Protein Calorie Malnutrition: [ ] Mild [ ] Moderate [ ] Severe [ ] Other Malnutrition (please specify) __ [ ] Underweight without malnutrition [ ] Cachexia [ ] Other diagnosis [ ] Unable to determine In addition, please specify: Present on Admission (POA): [ ] Yes [ ] No [ ] Unable to determine CLINICAL INDICATORS - SIGNS / SYMPTOMS / LABS / RESULTS AND LOCATION IN MR H&P 03/30: "PROFOUND WEAKNESS WELL NAUSEA AND DECREASED PO INTAKE SINCE OVER THE LAST 2 WEEKS." DIETARY ASSESSMENT 03/31: "PT REPORT POOR APPETITE, NO PO INTAKE DATA SINCE ADMIT, 19% WT LOSS X 12 MONTHS PER EMR" BMI 17.9 ALBUMIN 03/31: 2.7 RISKS: ALCOHOL ABUSE (PROGRESS NOTE 04/04) DIARRHEA X 2 WEEKS (DIETARY NOTE 03/31) "CRITICAL DEHYDRATION" (PER ER NOTE 03/30) TREATMENT: NUTRITIONAL SUPPLEMENTS (ORDERED 03/31) DIETARY CONSULT Moderate Malnutrition (in acute illness) Energy Intake: <75% of estimated energy requirement for > 7 days 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 Loss: 1-2%/1 week; 5%/ 1 month; 7.5%/3 months Other: mild body fat loss; mild muscle mass loss; mild fluid accumulation; Severe Malnutrition (in acute illness) Energy Intake: < 50% of estimated energy requirement for > 5 days Weight Loss: >1-2%/1 week; >5%/1 month; >7.5%/3 months Other: moderate body fat loss; moderate muscle mass loss; moderate- severe fluid accumulation; measurably reduced cell support operator strength Moderate Malnutrition (in chronic illness) Energy Intake: <75% of estimated energy requirement for >1 month Weight Loss: 5%/1 month; 7.5%/3 months; 10%/6 months; 20%/1 year Other: mild body fat loss; mild muscle mass loss; mild fluid accumulation Severe Malnutrition (in chronic illness) Energy Intake: <75% of estimated energy requirement for >1 month Weight Loss: >5%/1 month; >7.5%/3 months; >10%/6 months; >20%/1 year Other: severe body fat loss; severe muscle mass loss; severe fluid accumulation ; measurably reduced cell support operator strength (This form is maintained as a part of the permanent medical record) 2014 [employer]. All Rights Reserved GEORGE [email or web address] Office: [phone] [facility]
--- NOTE | 2019-04-06 04:15 | PQF ---
BELTRAN KAPLAN KARISHMA [id number] CLINICAL DOCUMENTATION CLARIFICATION FORM: POST DISCHARGE Addendum to original discharge summary date: ____ Late entry note date: __ DATE: 04/06/19 ATTN: Milagros Cruz Please exercise your independent, professional judgment in responding to the clarification form. Clinical indicators are provided on the bottom of this form for your review In your clinical opinion based on clinical findings below, can you please identify the condition as the reason for Inpatient admission if due to: Please check appropriate box(s): [ ] Acute Renal Failure [ ] Acidosis due to Acetaminophen Overdose [ ] Acidosis due to GI losses [ ] Urinary tract infection [ ] Hypokalemia [ ] Other diagnosis [ ] Unable to determine In addition, please specify: Present on Admission (POA): [ ] Yes [ ] No [ ] Unable to determine For continuity of documentation, please document condition throughout progress notes and discharge summary. Thank You. CLINICAL INDICATORS - SIGNS / SYMPTOMS / LABS H&P p1 03/30 Dr Velasquez brought in by a friend today because of profound weakness as well as nausea and decreased p.o. intake since over the last 2 weeks H&P p1 03/30 Dr Velasquez The patient has tried to stop drinking since 2 weeks ago and has been having decreased p.o. intake since then. Friend states the patient has not been able to take any of her medication. H&P p1 03/30 Dr Velasquez On presentation in the ED patient was noted to be in severe metabolic acidosis with low pH of 7.1. She has been admitted for that. H&P p1 03/30 Dr Velasquez She admits to diarrhea about a week ago that has since resolved. She denies any NSAID use, but admits to using Tylenol about 8- 10 tablets per day since the last several days because of generalized body aches and weakness. RISK FACTORS H&P p2 03/30 Anion gap Metabolic Acidosis H&P p2 03/30 Urinary tract infection H&P p2 03/30 Hypokalemia H&P p2 03/30 Hypomagnesemia H&P p3 03/30 Acute renal failure TREATMENTS: MAR 03/30 IV fluid with Isotonic MAR 03/30 D5 NS with Potassium JUN 20 IV Bicarb MAR 03/30 IV Antibiotics (This form is maintained as a part of the permanent medical record) 2014 [employer]. All Rights Reserved [email or web address] [not provided] MTDD
[2019-04-06] MEDS ORDERED: Amlodipine 5 MG TAB PO SCH (09:00)
--- NOTE | 2019-04-06 11:05 | DIS ---
DATE OF ADMISSION: 03/30/2019 DATE OF DISCHARGE: 04/05/2019 PRIMARY CARE PHYSICIAN: Out [facility] physician. DISCHARGE DIAGNOSES: 1. Functional quadriparesis, present on admission. 2. High anion gap metabolic acidosis. 3. Acute kidney injury. 4. Severe protein-calorie malnutrition, present on admission. 5. Escherichia coli urinary tract infection. 6. Hyponatremia. 7. Volume depletion. 8. Hypokalemia. 9. Hypocalcemia. 10. Hypomagnesemia. 11. Chronic alcohol abuse. 12. Vitamin D deficiency. CONSULTS: Nephrology. HOSPITAL COURSE: A 58-year-old female with known history of chronic alcohol abuse, brought in because of profound weakness as well as nausea and decreased oral intake. The patient was found to have acute kidney injury, multiple electrolyte derangement as well as protein calorie malnutrition and physical deconditioning. She also was found to have volume depletion with severe metabolic acidosis, hence was started on bicarb infusion after fluid resuscitation. The patient had nausea and vomiting, which was treated appropriately. Symptoms improved and the patient was tolerating oral intake more. She also was found to have urinary tract infection. She was treated appropriately with antibiotics. She was subsequently discharged home to continue therapy. She was advised to take oral supplement in addition to all she could eat. PHYSICAL EXAMINATION: VITAL SIGNS: Temperature 97.9, pulse 94, respiratory rate 18, SpO2 of 99 on room air, blood pressure is 153/88. GENERAL: Cachectic, elderly looking female, in no obvious distress. Afebrile. Anicteric. Acyanotic. HEENT: Normocephalic, atraumatic. Oral mucosa is moist. CARDIOVASCULAR: Regular rhythm and rate with normal heart sounds 1 and 2. RESPIRATORY: Fair air entry bilaterally with few transmitted breath sounds, but no obvious crackle or rhonchi. GI: Flat, soft, nondistended with normal bowel sounds. EXTREMITIES: Diffuse muscular atrophy noted with no edema or erythema. MEDICAL CLAIMS ASSISTANT: Conscious, alert, oriented x3. Ambulant. DISCHARGE CONDITION: Improved. DISCHARGE DISPOSITION: Home. DISCHARGE MEDICATIONS: 1. Arimidex 1 mg p.o. daily. 2. Calcium carbonate with vitamin D 1500/400 units one tablet p.o. daily. 3. Flexeril 10 mg p.o. t.i.d. p.r.n. 4. Ferrous sulfate 325 mg p.o. b.i.d. 5. Folic acid 1 mg p.o. daily. 6. Lorazepam one tablet p.o. b.i.d. p.r.n. 7. Metoprolol 50 mg p.o. b.i.d. 8. Ranitidine 75 mg p.o. b.i.d. 9. Zoloft 50 mg p.o. daily. 10. Acetaminophen 650 mg q.6 p.r.n. for pain. 11. Magnesium oxide 400 mg p.o. b.i.d. 12. Nicotine patch 21 mg patch daily. 13. Potassium chloride 20 mEq p.o. daily. 14. Thiamine 100 mg p.o. daily. TIME SPENT: This discharge took more than 33 minutes. Job ID: [id number]
== END 2019-04-05 12:45 | disposition home or self-care (01) | DRG 682 ==
LOC: ERS 15:52 → IMCU/EMU 19:32 → T4-B 03-31 14:19
PROVIDERS: ADMIT Internal Medicine; ATTEND Internal Medicine
DX: N17.9 Acute kidney failure, unspecified (principal); R53.2 Functional quadriplegia; E43 Unspecified severe protein-calorie malnutrition; E87.2 Acidosis; N39.0 Urinary tract infection, site not specified; Z68.1 Body mass index [BMI] 19.9 or less, adult; E87.1 Hypo-osmolality and hyponatremia; E87.3 Alkalosis; R64 Cachexia; E87.6 Hypokalemia; E83.42 Hypomagnesemia; E86.9 Volume depletion, unspecified; I10 Essential (primary) hypertension; F10.10 Alcohol abuse, uncomplicated; E83.51 Hypocalcemia; E55.9 Vitamin D deficiency, unspecified; K82.8 Other specified diseases of gallbladder; F17.210 Nicotine dependence, cigarettes, uncomplicated; B96.20 Unspecified Escherichia coli [E. coli] as the cause of diseases classified elsewhere; Z86.73 Personal history of transient ischemic attack (TIA), and cerebral infarction without residual deficits; Z85.3 Personal history of malignant neoplasm of breast; Z98.1 Arthrodesis status; Z79.899 Other long term (current) drug therapy; Z28.21 Immunization not carried out because of patient refusal
CPT/HCPCS: 36415; 51701; 71045; 74177; 76705; 80053; 80069; 80307; 81001; 81003; 81015; 82306; 82330; 82803; 82805; 83605; 83690; 83735; 83880; 83930; 84484; 85025; 87077; 87086; 87186; 87324; 87449; 93005; 94640; 96361; 96365; 96366; 96368; 96375; A4353; J1650; J2001; J2060; J2270; J2405; J2550; J3411; J3475; J3480; J7042; J7050; J7070; J7620; Q9967

== ENCOUNTER 2019-12-13 09:31 | Outpatient (CLI) | payer OTHER ==
--- NOTE | 2019-12-13 10:54 | MMO ---
Bilateral MAMMO Bilat Screen [facility]. CLINICAL HISTORY: Patient is 59 years old and is seen for screening. The patient has the following family history of breast cancer: mother, malignant (generic). The patient has a history of left Mastectomy in 2001 - malignant. VIEWS: The views performed were: right craniocaudal with tomosynthesis and right mediolateral oblique with tomosynthesis. FILMS COMPARED: The present examination has been compared to prior imaging studies performed at [facility] on 03/11/2009, 03/11/2010, 03/15/2011 and 04/14/2016. This study has been interpreted with the assistance of computer-aided detection. MAMMOGRAM FINDINGS: The breast is heterogeneously dense, which could obscure a lesion on mammography. There are benign appearing calcifications in the right breast. There are no suspicious masses, suspicious calcifications, or new areas of architectural distortion. IMPRESSION: THERE IS NO MAMMOGRAPHIC EVIDENCE OF MALIGNANCY. A ROUTINE FOLLOW-UP MAMMOGRAM IN 1 YEAR IS RECOMMENDED. THE RESULTS OF THIS EXAM WERE SENT TO THE PATIENT. ACR BI-RADS Category 2 - Benign finding MAMMOGRAPHY NOTE: 1. A negative mammogram report should not delay a biopsy if a dominant of clinically suspicious mass is present. 2. Approximately 10% to 15% of breast cancers are not detected by mammography. 3. Adenosis and dense breasts may obscure an underlying neoplasm. Reported by: ISACC RADFORD MD Electonically Signed: [id number]
--- NOTE | 2019-12-13 10:58 | BD ---
BONE DENSITOMETRY USING DEXA: HISTORY: Postmenopausal screening for osteoporosis. FINDINGS: Exam: DEXA Bone Density Left Forearm: BMD (g/cm2) UD 0.239 T-Score: -3.5 Z-Score: -2.7 Mid 0.304 T-Score: -5.5 Z-Score: -4.4 1/3 0.382 T-Score: -5.2 Z-Score: -4.1 Total 0.308 T-Score: -5.0 Z-Score: -2.9 Left Hip Femoral Neck: 0.435 T-Score: -3.7 Z-Score: -2.6 Total Femur: 0.604 T-Score: -2.8 Z-Score: -2.0 There has been interval improvement of 9.7% in the BMD of the proximal femur since 02/28/2017. Impression: Osteoporosis. POS: OFF
== END 2019-12-13 09:32 | disposition home or self-care (01) ==
LOC: BICMAMMO 09:31
PROVIDERS: ATTEND Internal Medicine Hematology & Oncology
DX: Z12.31 Encounter for screening mammogram for malignant neoplasm of breast (principal); Z13.820 Encounter for screening for osteoporosis; N95.8 Other specified menopausal and perimenopausal disorders; M81.0 Age-related osteoporosis without current pathological fracture; Z85.3 Personal history of malignant neoplasm of breast; Z80.3 Family history of malignant neoplasm of breast; Z90.12 Acquired absence of left breast and nipple
CPT/HCPCS: 77063; 77067; 77080

== ENCOUNTER 2020-08-02 11:51 | Emergency (ER) | payer OTHER ==
[2020-08-02] MEDS ORDERED: Ondansetron ODT 4 MG TAB ONE (14:12)
[2020-08-02] MEDS ORDERED: HYDROcodone/Acetaminophen 10/325 mg Tablet ONE (14:12)
== END 2020-08-02 14:36 | disposition home or self-care (01) ==
LOC: ERS 11:51
DX: S72.112A Displaced fracture of greater trochanter of left femur, initial encounter for closed fracture (principal); Z86.73 Personal history of transient ischemic attack (TIA), and cerebral infarction without residual deficits; F17.210 Nicotine dependence, cigarettes, uncomplicated; Z79.899 Other long term (current) drug therapy; W19.XXXA Unspecified fall, initial encounter
CPT/HCPCS: Q0162

== ENCOUNTER 2020-08-08 17:01 | Inpatient (IN) | payer OTHER ==
[2020-08-08 18:08] LABS: #Basophils 0.1 thou/uL (0.0-0.2); #Eosinphils 0.1 thou/uL (0.0-0.7); #Lymphocytes 1.7 thou/uL (1.20-3.40); #Monocytes 0.6 thou/uL (0.11-0.59); #Neutrophils 5.3 thou/uL (1.40-6.50); %Basophils 0.6 % (0.0-1.0); %Eosinophils 1.5 % (0.0-10.0); %Monocytes 7.2 % (0.0-10.0); %Neutrophils 68.7 % (42.0-75.0); Hemoglobin 9.9 g/dL (12.0-16.0); Mean Corpuscular HGB CONC 32.9 g/dL (32.0-36.0); Mean Corpuscular Hemoglobin 29.2 pg (27.0-31.0); Mean Corpuscular Volume 88.8 fL (78.0-98.0); Mean Platelet Volume 7.8 fL (7.4-10.4); Platelet Count 354 thou/uL (130-400); Red Blood Cell (RBC) Count 3.37 mill/uL (4.20-5.40); White Blood Cell (WBC) Count 7.8 thou/uL (4.8-10.8)
[2020-08-08 18:32] LABS: ALT (SGPT) 12 U/L (8-55); AST (SGOT) 15 U/L (5-34); Albumin 4.1 g/dL (3.5-5.0); Alkaline Phosphatase 167 U/L (40-110); Anion Gap 15 mmol/L (10-20); BUN (Urea Nitrogen) 37 mg/dL (9.8-20.1); Bilirubin, Total 0.2 mg/dL (0.2-1.2); Calc. Creatinine Clearance 0 mL/min (70-130); Calcium 9.3 mg/dL (7.8-10.44); Carbon Dioxide 16 mmol/L (22-29); Chloride 101 mmol/L (98-107); Glucose 98 mg/dL (70-105); Potassium 3.8 mmol/L (3.5-5.1); Protein, Total 8.1 g/dL (6.0-8.3); Sodium 128 mmol/L (136-145)
[2020-08-08] MEDS ORDERED: Morphine 4 MG/ML VIAL ONE (19:55)
[2020-08-08] MEDS ORDERED: Ondansetron ODT 4 MG TAB SL PRN (20:30)
[2020-08-08] MEDS ORDERED: Ondansetron PF 4 MG/2 ML Vial IVP PRN ×2 (20:30→21:02)
[2020-08-08] MEDS ORDERED: Lactated Ringer's 1,000 ML IV SCH ×2 (20:30→21:15)
[2020-08-08] MEDS ORDERED: Acetaminophen 325 MG TAB PO PRN (20:30)
[2020-08-08] MEDS ORDERED: Ondansetron ODT 4 MG TAB PO PRN (21:02)
[2020-08-08] MEDS ORDERED: Dextrose 5% in Water 1,000 ML IV PRN (21:02)
[2020-08-08] MEDS ORDERED: Dextrose 50% Abboject 50 ML SYRINGE SLOW IVP PRN (21:02)
[2020-08-08] MEDS ORDERED: Morphine 4 MG/ML VIAL SLOW IVP PRN (21:24)
[2020-08-08] MEDS: traMADol HCl 50 MG TAB PO PRN (21:43)
[2020-08-08] MEDS: Sodium Chloride 0.9% 1,000 ML IV SCH (21:43)
[2020-08-08] MEDS: Acetaminophen 325 MG TAB PO SCH (23:36)
[2020-08-08] MEDS: traMADol HCl 50 MG TAB PO SCH (23:36)
[2020-08-09 00:53] LABS: Bacteria/HPF 3+ HPF (None Seen); Bilirubin Negative (Negative); Blood, Urine Negative (Negative); Clarity Clear (Clear); Glucose, Urine (Dipstick) Normal (Negative); Ketone, Urine Negative (Negative); Leukocyte 75 Leu/uL (Negative); Nitrite Negative (Negative); Protein, Urine (Dipstick) Negative (Neg-Trace); RBC/HPF 0-3 HPF (0-3); Specific Gravity, Urine 1.006 (1.002-1.036); Squamous Epithelial 0-3 HPF (0-3); Urobilinogen Normal mg/dL (Less than 2); pH, Urine 5.5 (5.0-9.0)
[2020-08-09 01:13] VITALS: BMI 24.0
[2020-08-09 02:58] LABS: SARS-CoV-2 NAA Rapid Test Not Detected (NotDetected)
[2020-08-09] MEDS: traMADol HCl 50 MG TAB PO SCH ×4 (05:17→23:58)
[2020-08-09] MEDS: Acetaminophen 325 MG TAB PO SCH ×4 (05:17→23:57)
[2020-08-09] MEDS: Sodium Chloride 0.9% 1,000 ML IV SCH (05:49)
[2020-08-09 06:09] LABS: #Eosinphils 0.1 thou/uL (0.0-0.7); #Lymphocytes 1.8 thou/uL (1.20-3.40); #Monocytes 0.6 thou/uL (0.11-0.59); #Neutrophils 4.2 thou/uL (1.40-6.50); %Basophils 0.7 % (0.0-1.0); %Eosinophils 1.7 % (0.0-10.0); %Lymphocytes 26.1 % (21.0-51.0); %Neutrophils 62.5 % (42.0-75.0); Mean Corpuscular HGB CONC 33.2 g/dL (32.0-36.0); Mean Corpuscular Hemoglobin 29.8 pg (27.0-31.0); Mean Corpuscular Volume 89.6 fL (78.0-98.0); Mean Platelet Volume 7.5 fL (7.4-10.4); Platelet Count 354 thou/uL (130-400); RBC Distribution Width 15.1 % (11.5-14.5); Red Blood Cell (RBC) Count 3.34 mill/uL (4.20-5.40); White Blood Cell (WBC) Count 6.7 thou/uL (4.8-10.8)
[2020-08-09 06:35] LABS: Anion Gap 13 mmol/L (10-20); Calc. Creatinine Clearance 56 mL/min (70-130); Calcium 8.4 mg/dL (7.8-10.44); Carbon Dioxide 14 mmol/L (22-29); Chloride 110 mmol/L (98-107); Glucose 95 mg/dL (70-105); Phosphorus 3.3 mg/dL (2.3-4.7); Potassium 3.7 mmol/L (3.5-5.1); Sodium 133 mmol/L (136-145)
[2020-08-09 07:31] LABS: BUN (Urea Nitrogen) 25 mg/dL (9.8-20.1); Magnesium 1.8 mg/dL (1.6-2.6)
[2020-08-09 08:41] LABS: Base Excess -13.8 mEq/L (-2.0 to +3.0); Calcium, Ionized (venous) 1.16 mmol/L (1.16-1.32); Chloride (VBG) 112 mmol/L (98-106); Hemoglobin (Hb) 9.9 g/dL (11.7-16.0); Potassium (VBG) 4.15 mmol/L (3.70-5.30); Sodium 134.8 mmol/L (133-146)
[2020-08-09 08:44] LABS: pH (venous) 7.18 (7.32-7.43)
[2020-08-09 08:45] LABS: Actual Bicarbonate (HCO3v) 14 mEq/L (22-28)
[2020-08-09] MEDS ORDERED: Prevnar 13-Val Conj/PF 0.5 ML SYRINGE IM ONE (09:00)
[2020-08-09] MEDS: Thiamine 100 MG TAB PO SCH (09:12)
[2020-08-09] MEDS: Amlodipine 5 MG TAB PO SCH (09:12)
[2020-08-09] MEDS: Ferrous Sulfate 325 MG TAB PO SCH ×2 (09:12→21:29)
[2020-08-09] MEDS: Famotidine 20 MG TAB PO SCH (09:12)
[2020-08-09] MEDS: Senokot S 8.6-50 MG TAB PO SCH ×2 (09:12→21:30)
[2020-08-09] MEDS: Folic Acid 1 MG TAB PO SCH (09:13)
[2020-08-09] MEDS: Metoprolol Tartrate 50 MG TAB PO SCH ×2 (09:13→21:29)
[2020-08-09] MEDS: Calcium Carbonate 600 MG + Vit D TAB PO SCH (09:13)
[2020-08-09] MEDS ORDERED: Sodium Bicarbonate 150 MEQ in Dextrose 5% in Water 1,000 ML IV SCH (09:30)
[2020-08-09] MEDS: Anastrozole 1 MG TAB PO SCH (09:39)
[2020-08-09] MEDS: CEFAZOLIN 1 GM VIAL SLOW IVP SCH ×2 (14:12→21:30)
[2020-08-09 14:56] LABS: Potassium, Urine 11.5 mmol/L
[2020-08-09] MEDS: traMADol HCl 50 MG TAB PO PRN (18:07)
[2020-08-09 20:32] LABS: Anion Gap 13 mmol/L (10-20); BUN (Urea Nitrogen) 17 mg/dL (9.8-20.1); Calc. Creatinine Clearance 66 mL/min (70-130); Calcium 8.4 mg/dL (7.8-10.44); Carbon Dioxide 20 mmol/L (22-29); Chloride 104 mmol/L (98-107); Glucose 90 mg/dL (70-105); Potassium 3.4 mmol/L (3.5-5.1); Sodium 134 mmol/L (136-145)
[2020-08-09] MEDS ORDERED: Sodium Bicarbonate 150 MEQ in Dextrose 5% in Water 1,000 ML FS SCH ×2 (21:00→21:15)
[2020-08-09] MEDS: Potassium Chloride 10 MEQ/100 ML PREMIX BAG IVPB SCH ×3 (21:31→23:57)
[2020-08-10] MEDS: Potassium Chloride 10 MEQ/100 ML PREMIX BAG IVPB SCH (00:53)
[2020-08-10 05:16] LABS: #Eosinphils 0.2 thou/uL (0.0-0.7); #Lymphocytes 1.7 thou/uL (1.20-3.40); #Monocytes 0.6 thou/uL (0.11-0.59); #Neutrophils 2.8 thou/uL (1.40-6.50); %Basophils 0.6 % (0.0-1.0); %Lymphocytes 32.2 % (21.0-51.0); %Monocytes 10.7 % (0.0-10.0); %Neutrophils 53.5 % (42.0-75.0); Hemoglobin 9.3 g/dL (12.0-16.0); Mean Corpuscular HGB CONC 32.6 g/dL (32.0-36.0); Mean Corpuscular Hemoglobin 28.6 pg (27.0-31.0); Mean Corpuscular Volume 87.7 fL (78.0-98.0); Mean Platelet Volume 7.2 fL (7.4-10.4); Platelet Count 346 thou/uL (130-400); RBC Distribution Width 14.7 % (11.5-14.5); Red Blood Cell (RBC) Count 3.24 mill/uL (4.20-5.40); White Blood Cell (WBC) Count 5.2 thou/uL (4.8-10.8)
[2020-08-10 05:43] LABS: Anion Gap 11 mmol/L (10-20); BUN (Urea Nitrogen) 12 mg/dL (9.8-20.1); Calc. Creatinine Clearance 72 mL/min (70-130); Calcium 8.2 mg/dL (7.8-10.44); Carbon Dioxide 22 mmol/L (22-29); Chloride 102 mmol/L (98-107); Glucose 76 mg/dL (70-105); Magnesium 1.4 mg/dL (1.6-2.6); Phosphorus 1.6 mg/dL (2.3-4.7); Potassium 3.7 mmol/L (3.5-5.1); Sodium 131 mmol/L (136-145)
[2020-08-10] MEDS ORDERED: Magnesium 2 GM/50 ML 2 GM in Premix Bag 1 BAG IVPB SCH (06:00)
[2020-08-10] MEDS: CEFAZOLIN 1 GM VIAL SLOW IVP SCH (06:32)
[2020-08-10] MEDS: Acetaminophen 325 MG TAB PO SCH ×4 (06:44→23:31)
[2020-08-10] MEDS: traMADol HCl 50 MG TAB PO SCH ×4 (06:44→23:31)
[2020-08-10] MEDS ORDERED: Midazolam HCl 2 mg/2 ml Vial ONE (07:18)
[2020-08-10] MEDS ORDERED: Fentanyl 100 MCG/2 ML VIAL ONE ×3 (07:18→09:49)
[2020-08-10] MEDS ORDERED: CEFAZOLIN 2 GM in Premix Bag 1 BAG IVPB SCH (07:30)
[2020-08-10] MEDS ORDERED: PROPOFOL 200 MG/20 ML VIAL ONE (08:15)
[2020-08-10] MEDS ORDERED: Dexamethasone 20 MG/5 ML VIAL ONE (08:15)
[2020-08-10] MEDS ORDERED: Rocuronium Bromide 10 MG/ML (10ML VIAL) ONE (08:15)
[2020-08-10] MEDS ORDERED: Lidocaine 1% PF 5 ML VIAL ONE (08:15)
[2020-08-10] MEDS ORDERED: Ondansetron PF 4 MG/2 ML Vial ONE (08:15)
[2020-08-10] MEDS: Sodium Phosphate 30 MMOL in Sodium Chloride 0.9% 250 ML 250 ML IVPB SCH ×2 (08:24→11:32)
[2020-08-10] MEDS ORDERED: SUGAMMADEX SODIUM 200 MG/2 ML VIAL ONE (09:36)
[2020-08-10] MEDS ORDERED: HYDROmorphone 0.5 MG/0.5 ML SYRINGE ONE ×4 (10:05→10:39)
[2020-08-10] MEDS: Famotidine 20 MG TAB PO SCH (10:27)
[2020-08-10] MEDS: Amlodipine 5 MG TAB PO SCH (10:27)
[2020-08-10] MEDS: Anastrozole 1 MG TAB PO SCH (10:27)
[2020-08-10] MEDS: Calcium Carbonate 600 MG + Vit D TAB PO SCH (10:27)
[2020-08-10] MEDS: Ferrous Sulfate 325 MG TAB PO SCH ×2 (10:28→19:59)
[2020-08-10] MEDS: Metoprolol Tartrate 50 MG TAB PO SCH ×2 (10:52→20:00)
[2020-08-10] MEDS: Folic Acid 1 MG TAB PO SCH (10:52)
[2020-08-10] MEDS: Thiamine 100 MG TAB PO SCH (10:52)
[2020-08-10] MEDS: Senokot S 8.6-50 MG TAB PO SCH ×2 (10:52→19:59)
[2020-08-10] MEDS ORDERED: Ketorolac Tromethamine 30 MG/ML VIAL ONE (11:01)
[2020-08-10] MEDS: traMADol HCl 50 MG TAB PO PRN ×2 (11:30→17:59)
[2020-08-10] MEDS: CEFAZOLIN 2 GM in Premix Bag 1 BAG IVPB SCH ×2 (15:47→23:32)
[2020-08-11 05:32] LABS: #Lymphocytes 1.3 thou/uL (1.20-3.40); #Monocytes 0.7 thou/uL (0.11-0.59); #Neutrophils 5.5 thou/uL (1.40-6.50); %Basophils 0.1 % (0.0-1.0); %Lymphocytes 17.5 % (21.0-51.0); %Monocytes 9.6 % (0.0-10.0); %Neutrophils 72.8 % (42.0-75.0); Hemoglobin 7.9 g/dL (12.0-16.0); Mean Corpuscular HGB CONC 33.4 g/dL (32.0-36.0); Mean Corpuscular Hemoglobin 29.6 pg (27.0-31.0); Mean Corpuscular Volume 88.7 fL (78.0-98.0); Mean Platelet Volume 7.4 fL (7.4-10.4); Platelet Count 325 thou/uL (130-400); RBC Distribution Width 14.8 % (11.5-14.5); Red Blood Cell (RBC) Count 2.68 mill/uL (4.20-5.40); White Blood Cell (WBC) Count 7.6 thou/uL (4.8-10.8)
[2020-08-11] MEDS: Acetaminophen 325 MG TAB PO SCH ×4 (05:33→23:56)
[2020-08-11] MEDS: traMADol HCl 50 MG TAB PO SCH ×4 (05:34→23:56)
[2020-08-11 06:03] LABS: Anion Gap 11 mmol/L (10-20); BUN (Urea Nitrogen) 8 mg/dL (9.8-20.1); Calc. Creatinine Clearance 69 mL/min (70-130); Calcium 8.3 mg/dL (7.8-10.44); Carbon Dioxide 25 mmol/L (22-29); Chloride 102 mmol/L (98-107); Glucose 94 mg/dL (70-105); Magnesium 1.8 mg/dL (1.6-2.6); Phosphorus 3.3 mg/dL (2.3-4.7); Potassium 3.7 mmol/L (3.5-5.1); Sodium 134 mmol/L (136-145)
[2020-08-11] MEDS: Amlodipine 5 MG TAB PO SCH (08:40)
[2020-08-11] MEDS: Metoprolol Tartrate 50 MG TAB PO SCH ×2 (08:41→20:57)
[2020-08-11] MEDS: Anastrozole 1 MG TAB PO SCH (08:41)
[2020-08-11] MEDS: Famotidine 20 MG TAB PO SCH (08:51)
[2020-08-11] MEDS: Calcium Carbonate 600 MG + Vit D TAB PO SCH (08:51)
[2020-08-11] MEDS: Senokot S 8.6-50 MG TAB PO SCH ×2 (08:52→20:58)
[2020-08-11] MEDS: Thiamine 100 MG TAB PO SCH (08:52)
[2020-08-11] MEDS: Folic Acid 1 MG TAB PO SCH (08:52)
[2020-08-11] MEDS: Ferrous Sulfate 325 MG TAB PO SCH ×2 (08:52→20:58)
[2020-08-11] MEDS ORDERED: Amlodipine 5 MG TAB PO SCH (11:30)
[2020-08-11] MEDS: traMADol HCl 50 MG TAB PO PRN ×3 (12:59→23:56)
[2020-08-11 13:59] LABS: Actual Bicarbonate (HCO3v) 25 mEq/L (22-28); Base Excess 0.1 mEq/L (-2.0 to +3.0); Calcium, Ionized (venous) 1.09 mmol/L (1.16-1.32); Chloride (VBG) 104 mmol/L (98-106); Hemoglobin (Hb) 8.8 g/dL (11.7-16.0); Potassium (VBG) 3.89 mmol/L (3.70-5.30); Sodium 134.5 mmol/L (133-146); pH (venous) 7.39 (7.32-7.43)
[2020-08-11] MEDS: Cyclobenzaprine 10 MG TAB PO PRN (20:57)
[2020-08-11] MEDS ORDERED: Metoprolol Tartrate 50 MG TAB PO SCH (21:00)
[2020-08-12] MEDS: traMADol HCl 50 MG TAB PO PRN ×2 (05:22→11:29)
[2020-08-12] MEDS: Acetaminophen 325 MG TAB PO SCH ×3 (05:22→17:25)
[2020-08-12] MEDS: traMADol HCl 50 MG TAB PO SCH ×3 (05:22→17:25)
[2020-08-12 05:38] LABS: #Eosinphils 0.1 thou/uL (0.0-0.7); #Lymphocytes 1.7 thou/uL (1.20-3.40); #Monocytes 0.6 thou/uL (0.11-0.59); #Neutrophils 5.9 thou/uL (1.40-6.50); %Basophils 0.4 % (0.0-1.0); %Eosinophils 1.1 % (0.0-10.0); %Lymphocytes 20.7 % (21.0-51.0); %Monocytes 7.2 % (0.0-10.0); %Neutrophils 70.6 % (42.0-75.0); Mean Corpuscular HGB CONC 32.7 g/dL (32.0-36.0); Mean Corpuscular Hemoglobin 29.2 pg (27.0-31.0); Mean Corpuscular Volume 89.3 fL (78.0-98.0); Mean Platelet Volume 7.4 fL (7.4-10.4); Platelet Count 342 thou/uL (130-400); RBC Distribution Width 14.9 % (11.5-14.5); Red Blood Cell (RBC) Count 2.75 mill/uL (4.20-5.40); White Blood Cell (WBC) Count 8.3 thou/uL (4.8-10.8)
[2020-08-12 05:59] LABS: Anion Gap 14 mmol/L (10-20); BUN (Urea Nitrogen) 9 mg/dL (9.8-20.1); Calc. Creatinine Clearance 70 mL/min (70-130); Calcium 8.7 mg/dL (7.8-10.44); Carbon Dioxide 21 mmol/L (22-29); Chloride 104 mmol/L (98-107); Glucose 89 mg/dL (70-105); Magnesium 1.7 mg/dL (1.6-2.6); Phosphorus 2.7 mg/dL (2.3-4.7); Potassium 3.6 mmol/L (3.5-5.1); Sodium 135 mmol/L (136-145)
[2020-08-12] MEDS: Thiamine 100 MG TAB PO SCH (08:38)
[2020-08-12] MEDS: Metoprolol Tartrate 50 MG TAB PO SCH (08:38)
[2020-08-12] MEDS: Anastrozole 1 MG TAB PO SCH (08:39)
[2020-08-12] MEDS: Folic Acid 1 MG TAB PO SCH (08:39)
[2020-08-12] MEDS: Calcium Carbonate 600 MG + Vit D TAB PO SCH (08:39)
[2020-08-12] MEDS: Famotidine 20 MG TAB PO SCH (08:39)
[2020-08-12] MEDS: Ferrous Sulfate 325 MG TAB PO SCH ×2 (08:39→17:25)
[2020-08-12] MEDS: Senokot S 8.6-50 MG TAB PO SCH (08:39)
[2020-08-12] MEDS ORDERED: Clopidogrel Bisulfate 75 MG TAB PO SCH (09:00)
[2020-08-12] MEDS ORDERED: Ascorbic Acid 500 mg Chewable Tablet PO SCH (09:00)
[2020-08-12] MEDS ORDERED: Amlodipine 5 MG TAB PO SCH (09:00)
[2020-08-12] MEDS ORDERED: Magnesium Sulfate 2 GM in Sodium Chloride 0.9% 100 ML IVPB SCH (09:00)
[2020-08-12] MEDS ORDERED: Potassium Phosphate 30 MMOL, Magnesium Sulfate 2 GM in Sodium Chloride 0.9% 250 ML IVPB SCH (09:00)
[2020-08-12 13:05] LABS: ANA Symphony (Qualitative) Negative (Negative); ANA Symphony (Quantitative) 0.2 Ratio (< 0.7 Negative); dsDNA IgG Antibody 0.7 IU/mL (<10 Negative)
[2020-08-12] MEDS: Cyclobenzaprine 10 MG TAB PO PRN (13:56)
[2020-08-12 16:04] VITALS: TEMP 98.2
[2020-08-12 16:07] VITALS: BP 110/86
== END 2020-08-12 18:20 | DRG 481 ==
LOC: ERS 17:01 → SJJU 21:02
PROVIDERS: ADMIT Surgery; ATTEND Surgery
PROC: 0QS704Z Reposition Left Upper Femur with Internal Fixation Device, Open Approach (ICD-10-PCS; principal; 2020-08-10)
DX: S72.145A Nondisplaced intertrochanteric fracture of left femur, initial encounter for closed fracture (principal); N17.9 Acute kidney failure, unspecified; E87.2 Acidosis; E87.1 Hypo-osmolality and hyponatremia; C78.7 Secondary malignant neoplasm of liver and intrahepatic bile duct; F17.210 Nicotine dependence, cigarettes, uncomplicated; Z20.822 Contact with and (suspected) exposure to COVID-19; I95.1 Orthostatic hypotension; I73.9 Peripheral vascular disease, unspecified; F41.9 Anxiety disorder, unspecified; E86.0 Dehydration; Z96.611 Presence of right artificial shoulder joint; C50.919 Malignant neoplasm of unspecified site of unspecified female breast; N18.2 Chronic kidney disease, stage 2 (mild); D63.1 Anemia in chronic kidney disease; I12.9 Hypertensive chronic kidney disease with stage 1 through stage 4 chronic kidney disease, or unspecified chronic kidney disease; W01.0XXA Fall on same level from slipping, tripping and stumbling without subsequent striking against object, initial encounter; Y92.009 Unspecified place in unspecified non-institutional (private) residence as the place of occurrence of the external cause; Z90.49 Acquired absence of other specified parts of digestive tract; Z98.890 Other specified postprocedural states; Z79.899 Other long term (current) drug therapy; Z86.73 Personal history of transient ischemic attack (TIA), and cerebral infarction without residual deficits; Z85.3 Personal history of malignant neoplasm of breast; Z82.0 Family history of epilepsy and other diseases of the nervous system
CPT/HCPCS: 36415; 71045; 76000; 80048; 80053; 81002; 81003; 81015; 82436; 82805; 83735; 83935; 84100; 84133; 84300; 84443; 85025; 86038; 86225; 87635; 93005; 93010; 96374; C1713; J0690; J1100; J1170; J1885; J2250; J2270; J2405; J2704; J3010; J3475; J3480; J7030; J7050; J7070; Q0162; U0002; U0003; U0005

== ENCOUNTER 2021-04-29 09:34 | Outpatient (CLI) | payer OTHER | END 2021-04-29 09:35 | disposition home or self-care (01) | LOC: BICMAMMO 09:34 | PROVIDERS: ATTEND Internal Medicine Hematology & Oncology | DX: Z12.31 Encounter for screening mammogram for malignant neoplasm of breast (principal); Z90.12 Acquired absence of left breast and nipple; Z80.3 Family history of malignant neoplasm of breast | CPT/HCPCS: 77067 ==

== ENCOUNTER 2021-08-20 07:45 | Outpatient (CLI) | payer OTHER ==
[2021-08-20 10:00] LABS: Hemoglobin 8.2 g/dL (12.0-15.5); Mean Corpuscular HGB CONC 30.5 g/dL (32.0-36.0); Mean Corpuscular Hemoglobin 24.9 pg (27.0-33.0); Mean Corpuscular Volume 81.8 fl (81.6-98.3); Mean Platelet Volume 10.1 fl (7.4-10.4); Platelet Count 400 10x3/uL (150-450); RBC Distribution Width 16.1 % (11.5-14.5); Red Blood Cell (RBC) Count 3.29 10x6/uL (3.90-5.03); White Blood Cell (WBC) Count 5.1 10x3/uL (3.5-10.5)
[2021-08-20 10:41] LABS: Anion Gap 15 mmol/L (10-20); BUN (Urea Nitrogen) 11 mg/dL (9.8-20.1); Calc. Creatinine Clearance 0 mL/min (70-130); Calcium 9.4 mg/dL (7.8-10.44); Carbon Dioxide 18 mmol/L (22-29); Chloride 100 mmol/L (98-107); Glucose 107 mg/dL (70-105); Potassium 5.2 mmol/L (3.5-5.1); Sodium 128 mmol/L (136-145)
[2021-08-20 22:41] LABS: SARS-CoV-2 PCR by NAA Not Detected (NotDetected)
== END 2021-08-20 07:46 | disposition home or self-care (01) ==
LOC: LABBT 07:45
PROVIDERS: ATTEND Thoracic Surgery (Cardiothoracic Vascular Surgery)
DX: Z01.818 Encounter for other preprocedural examination (principal); I65.22 Occlusion and stenosis of left carotid artery; Z20.822 Contact with and (suspected) exposure to COVID-19
CPT/HCPCS: 80048; 85027; 93005; 93010; U0003; U0005

== ENCOUNTER 2021-08-20 08:00 | Inpatient (IN) | payer OTHER ==
[2021-08-25] MEDS ORDERED: Lidocaine 1% MPF 2 ML VIAL ONE (05:56)
[2021-08-25] MEDS ORDERED: EPINEPHrine 1 MG/ML AMP ONE (06:31)
[2021-08-25] MEDS ORDERED: Heparin 5,000 UNITS/ML VIAL ONE (06:31)
[2021-08-25] MEDS ORDERED: Bupivacaine PF 0.5% 30 ML VIAL ONE (06:31)
[2021-08-25] MEDS ORDERED: Protamine Sulfate 50 MG/5 ML VIAL ONE (06:31)
[2021-08-25] MEDS ORDERED: Phenylephrine 10 MG/ML VIAL ONE (06:33)
[2021-08-25] MEDS ORDERED: fentaNYL Citrate/PF 100 MCG/2 ML SYRINGE ONE (06:33)
[2021-08-25] MEDS ORDERED: ceFAZolin (BATCH) 2 GM/100 ML BAG ONE ×2 (07:24)
[2021-08-25] MEDS ORDERED: Ketorolac Tromethamine 30 MG/ML VIAL ONE (07:40)
[2021-08-25] MEDS ORDERED: Rocuronium Bromide 10 MG/ML (10ML VIAL) ONE (07:40)
[2021-08-25] MEDS ORDERED: Lidocaine 1% PF 5 ML VIAL ONE (07:40)
[2021-08-25] MEDS ORDERED: PROPOFOL 200 MG/20 ML VIAL ONE (07:40)
[2021-08-25] MEDS ORDERED: PHENYLEPHRINE-NS 100 MCG/ML 10 ML SYRINGE ONE (07:40)
[2021-08-25] MEDS ORDERED: Glycopyrrolate 0.2 MG/ML 5 ML SYRINGE ONE (07:40)
[2021-08-25] MEDS ORDERED: Ondansetron PF 4 MG/2 ML Vial ONE (07:40)
[2021-08-25] MEDS ORDERED: Promethazine HCl 25 MG/ML VIAL IM PRN (08:59)
[2021-08-25] MEDS ORDERED: Promethazine HCl 25 MG/ML VIAL IVPB PRN (08:59)
[2021-08-25] MEDS ORDERED: Ondansetron HCl/PF 4 MG/2 ML Vial IVP PRN (08:59)
[2021-08-25] MEDS ORDERED: Naloxone HCl 0.4 mg/ml Vial ONE (09:29)
[2021-08-25] MEDS ORDERED: SUGAMMADEX SODIUM 200 MG/2 ML VIAL ONE (09:29)
[2021-08-25] MEDS ORDERED: Phenylephrine 40 MG in Sodium Chloride 0.9% 250 ML 250 ML IVPB PRN (10:38)
[2021-08-25] MEDS ORDERED: traMADol HCl 50 MG TAB PO PRN (10:38)
[2021-08-25] MEDS ORDERED: hydrALAZINE 20 MG/ML VIAL SLOW IVP PRN (10:38)
[2021-08-25] MEDS ORDERED: Fentanyl 100 MCG/2 ML VIAL SLOW IVP PRN (10:38)
[2021-08-25] MEDS ORDERED: Cyclobenzaprine 10 MG TAB PO PRN (10:38)
[2021-08-25] MEDS ORDERED: Nitroglycerin 50 MG/250 ML BOT 250 ML IVPB PRN (10:38)
[2021-08-25] MEDS ORDERED: Ondansetron PF 4 MG/2 ML Vial IVP PRN (10:38)
[2021-08-25 10:46] VITALS: BMI 30.6
[2021-08-25] MEDS ORDERED: Lorazepam 1 MG TAB PO SCH (11:00)
[2021-08-25] MEDS ORDERED: Metoprolol Tartrate 50 MG TAB PO SCH (11:15)
[2021-08-25] MEDS: Calcium Carbonate 600 MG + Vit D TAB PO SCH ×2 (13:55→14:22)
[2021-08-25] MEDS: Sodium Chloride 0.9% 1,000 ML IV SCH ×2 (13:55→19:27)
[2021-08-25] MEDS: Folic Acid 1 MG TAB PO SCH ×2 (13:56→14:22)
[2021-08-25] MEDS: ceFAZolin 2 GM/Dextrose 50 ML 2 GM in Premix Bag 1 BAG IVPB SCH ×2 (16:59→18:04)
[2021-08-25] MEDS: Sodium Chloride 1 GM TAB PO SCH ×2 (16:59→20:30)
[2021-08-25] MEDS: traMADol HCl 50 MG TAB PO PRN (17:07)
[2021-08-25] MEDS ORDERED: CEFAZOLIN 2 GM in Premix Bag 1 BAG IVPB SCH (18:00)
[2021-08-25] MEDS: CEFAZOLIN 2 GM in Sodium Chloride 0.9% 100 ML IVPB SCH (18:18)
[2021-08-25] MEDS: Lorazepam 1 MG TAB PO SCH (20:30)
[2021-08-25] MEDS: Metoprolol Tartrate 50 MG TAB PO SCH (20:30)
[2021-08-26] MEDS: traMADol HCl 50 MG TAB PO PRN (01:20)
[2021-08-26] MEDS: CEFAZOLIN 2 GM in Sodium Chloride 0.9% 100 ML IVPB SCH ×2 (01:20→09:14)
[2021-08-26] MEDS: Lisinopril 10 MG TAB PO SCH (09:13)
[2021-08-26] MEDS: Calcium Carbonate 600 MG + Vit D TAB PO SCH (09:16)
[2021-08-26] MEDS: Folic Acid 1 MG TAB PO SCH (09:16)
[2021-08-26] MEDS: Metoprolol Tartrate 50 MG TAB PO SCH ×2 (09:16→21:42)
[2021-08-26] MEDS: Clopidogrel Bisulfate 75 MG TAB PO SCH (09:16)
[2021-08-26] MEDS: Sodium Chloride 0.9% 1,000 ML IV SCH ×2 (09:17→15:06)
[2021-08-26] MEDS: Lorazepam 1 MG TAB PO SCH ×2 (09:17→21:42)
[2021-08-26] MEDS: Anastrozole 1 MG TAB PO SCH (09:18)
[2021-08-26] MEDS: cloNIDine 0.2 MG TAB PO SCH ×2 (10:19→21:42)
[2021-08-26] MEDS: Amlodipine 5 MG TAB PO SCH (10:19)
[2021-08-26] MEDS: Sodium Chloride 1 GM TAB PO SCH ×3 (10:19→21:42)
[2021-08-26] MEDS: Acetaminophen 325 MG TAB PO PRN (15:06)
[2021-08-27] MEDS: Sodium Chloride 0.9% 1,000 ML IV SCH (03:20)
[2021-08-27 08:17] VITALS: TEMP 98.5
[2021-08-27] MEDS: Clopidogrel Bisulfate 75 MG TAB PO SCH (08:55)
[2021-08-27] MEDS: Sodium Chloride 1 GM TAB PO SCH (08:55)
[2021-08-27] MEDS: Calcium Carbonate 600 MG + Vit D TAB PO SCH (08:55)
[2021-08-27] MEDS: Folic Acid 1 MG TAB PO SCH (08:55)
[2021-08-27] MEDS: Metoprolol Tartrate 50 MG TAB PO SCH (08:56)
[2021-08-27] MEDS: Anastrozole 1 MG TAB PO SCH (08:56)
[2021-08-27] MEDS: Lisinopril 10 MG TAB PO SCH (08:56)
[2021-08-27] MEDS: Lorazepam 1 MG TAB PO SCH (08:56)
[2021-08-27] MEDS: Amlodipine 5 MG TAB PO SCH (08:56)
[2021-08-27] MEDS: cloNIDine 0.2 MG TAB PO SCH (08:56)
[2021-08-27 08:57] VITALS: BP 104/57
[2021-08-27] MEDS: Acetaminophen 325 MG TAB PO PRN (09:15)
== END 2021-08-27 11:06 | disposition home or self-care (01) | DRG 39 ==
LOC: SURG A 08-25 05:44 → CCU 08-25 10:12 → 2NO 08-26 12:47
PROVIDERS: ADMIT Thoracic Surgery (Cardiothoracic Vascular Surgery); ATTEND Thoracic Surgery (Cardiothoracic Vascular Surgery)
PROC: 03CJ0ZZ Extirpation of Matter from Left Common Carotid Artery, Open Approach (ICD-10-PCS; principal; 2021-08-25)
PROC: 03UJ0KZ Supplement Left Common Carotid Artery with Nonautologous Tissue Substitute, Open Approach (ICD-10-PCS; 2021-08-25)
DX: I65.22 Occlusion and stenosis of left carotid artery (principal); Z20.822 Contact with and (suspected) exposure to COVID-19; I10 Essential (primary) hypertension; I70.213 Atherosclerosis of native arteries of extremities with intermittent claudication, bilateral legs; C50.919 Malignant neoplasm of unspecified site of unspecified female breast; F41.9 Anxiety disorder, unspecified; F17.210 Nicotine dependence, cigarettes, uncomplicated; Z79.899 Other long term (current) drug therapy; Z86.73 Personal history of transient ischemic attack (TIA), and cerebral infarction without residual deficits
CPT/HCPCS: 82805; 88184; 88305; 88341; 88342; 94640; C1713; C1768; C1776; J0171; J0690; J1642; J1644; J1885; J2310; J2370; J2405; J2704; J2720; J3490; J7050; J7620; S0020

== ENCOUNTER 2022-08-04 08:51 | Outpatient (CLI) | payer OTHER | END 2022-08-04 08:52 | disposition home or self-care (01) | LOC: BICMAMMO 08:51 | PROVIDERS: ATTEND Internal Medicine Hematology & Oncology | DX: Z12.31 Encounter for screening mammogram for malignant neoplasm of breast (principal) | CPT/HCPCS: 77067 ==